=== PATIENT | male | born 1980 | race Caucasian/White ===

== ENCOUNTER → 2020-01-22 | Outpatient (CLI) | payer MEDICAID | END | disposition home or self-care (01) | LOC: LABWHC1 15:54 | PROVIDERS: ATTEND Family Medicine | DX: Z20.828 Contact with and (suspected) exposure to other viral communicable diseases (principal) | CPT/HCPCS: U0003; C9803 ==

== ENCOUNTER 2024-03-12 18:53 | Inpatient (IN) | payer MEDICAID ==
--- NOTE | 2024-03-12 20:09 | ED ---
General Adult HPI - General Chief complaint: Chest Pain Stated complaint: chest pain Time Seen by Provider: 03/12/24 19:10 Source: patient, family, RN notes reviewed, old records reviewed Mode of arrival: ambulatory Limitations: no limitations - History of Present Illness Initial comments: This is a 43-year-old male who presents to the emergency department complaining of chest pain since last night. Patient states the pain radiates down his left arm. Patient states he is also mildly short of breath and last night he became nauseous when he had the chest pain and vomited x 1. Patient states he has been fighting a cold over the last week and just darted antibiotic yesterday. Patient states his blood pressures also been elevated one of his family members is a physician volunteer assistant and they started him on blood pressure medication yesterday. Patient currently states the chest pain is better but it still there and it feels worse if he sits forward or leans forward. States earlier today he did get the chills - Related Data Allergies Allergy/AdvReac Type Severity Reaction Status Date / Time No Known Allergies Allergy Verified 03/12/24 18:58 Review of Systems ROS Statement: Those systems with pertinent positive or pertinent negative responses have been documented in the HPI. ROS Other: All systems not noted in ROS Statement are negative. Past Medical History Past Medical History: Hypertension Past Surgical History: No Surgical Hx Reported Past Psychological History: No Psychological Hx Reported Smoking Status: Current every day smoker Past Alcohol Use History: Occasional Past Drug Use History: Marijuana General Exam - General Exam Comments Initial Comments: GENERAL: Patient is well-developed and well-nourished. Patient is nontoxic and well- hydrated and is in mild distress. ENT: Neck is soft and supple. No significant lymphadenopathy is noted. Oropharynx is clear. Moist mucous membranes. Neck has full range of motion without eliciting any pain. EYES: The sclera were anicteric and conjunctiva were pink and moist. Extraocular movements were intact and pupils were equal round and reactive to light. Eyelids were unremarkable. PULMONARY: Unlabored respirations. Good breath sounds bilaterally. No audible rales rhonchi or wheezing was noted. CARDIOVASCULAR: There is a regular rate and rhythm without any murmurs gallops or rubs. ABDOMEN: Soft and nontender with normal bowel sounds. SKIN: Skin is clear with no lesions or rashes and otherwise unremarkable. NEUROLOGIC: Patient is alert and oriented x3. Cranial nerves II through XII are grossly intact. Motor and sensory are also intact. Normal speech, volume and content. Symmetrical smile. MUSCULOSKELETAL: Normal extremities with adequate strength and full range of motion. LYMPHATICS: No significant lymphadenopathy is noted PSYCHIATRIC: Normal psychiatric evaluation. Limitations: no limitations Course Vital Signs 03/12/24 03/12/24 18:58 20:29 Temperature 97.9 F 98.7 F Pulse Rate 92 90 Respiratory 18 15 Rate Blood Pressure 200/119 186/125 O2 Sat by Pulse 100 100 Oximetry Medical Decision Making - Medical Decision Making EKG interpreted by myself EKG shows a sinus rhythm at 94 bpm NH interval 114 QRS is 94 QT interval 373 QTc is 425. Patient's EKG shows slight ST segment elevation in V1 and V2 with Q waves in V1 and V2. Patient also has inverted T waves in V5 and V6 and lateral leads I and aVL. No old EKG to compare to Patient request to be admitted to whoever Dr. Harris admits to. Patient has already been signed up to follow-up with Dr. Harris as an outpatient. Was pt. sent in by a medical professional or institution (, PA, TECHNICIAN PREVENTATIVE MEDICINE, urgent care, hospital, or long term...) When possible be specific @ -[No] Did you speak to anyone other than the patient for history (EMS, parent, family, police, friend...)? What history was obtained from this source @ -[No] Did you review nursing and triage notes (agree or disagree)? Why? @ -[I reviewed and agree with nursing and triage notes] Were old charts reviewed (outside hosp., previous admission, EMS record, old EKG, old radiological studies, urgent care reports/EKG's, long term records)? Report findings @ -[No old charts were reviewed] Differential Diagnosis? @ -Differential Chest Pain: Stable Angina, Unstable Angina, STEMI, NSTEMI Aortic Dissection, Pneumothorax, Musculoskeletal, Esophageal Spasm GERD, Cholecystitis, Pancreatitis, Zoster, this is not meant to be an all-inclusive list. Differential Dyspnea: Coronary syndrome, arrhythmia, tamponade, asthma, COPD, pulmonary embolism, pneumonia, pneumothorax, pulmonary effusion, anaphylaxis, diabetic ketoacidosis, flailed chest, pulmonary contusion, diaphragmatic rupture, anemia, neuromuscular, this is not meant to be an all-inclusive list. EKG interpreted by me (3pts min.). @ -[As above] X-rays interpreted by me (1pt min.). @ -Chest x-ray shows no acute abnormality CT interpreted by me (1pt min.). @ -[None done] U/S interpreted by me (1pt. min.). @ -[None done] What testing was considered but not performed or refused? (CT, X-rays, U/S, labs)? Why? @ -[None] What meds were considered but not given or refused? Why? @ -[None] Did you discuss the management of the patient with other professionals (pr ofessionals i.e. , PA, TECHNICIAN PREVENTATIVE MEDICINE, lab, RT, psych nurse, mental health social worker, cook vegetable, teacher, code enforcement officer, mental health case manager)? Give summary @ -I spoke with discharging hospitalist and they agreed to admit the patient admit the patient recommending her Was smoking cessation discussed for >3mins.? @ -Yes Was critical care preformed (if so, how long)? @ -[No] Were there social determinants of health that impacted care today? How? (Homelessness, low income, unemployed, alcoholism, drug addiction, transportation, low edu. Level, literacy, decrease access to med. care, longterm, rehab)? @ -[No] Was there de-escalation of care discussed even if they declined (Discuss DNR or withdrawal of care, Hospice)? DNR status @ -[No] What co-morbidities impacted this encounter? (DM, HTN, Smoking, COPD, CAD, Cancer, CVA, ARF, Chemo, Hep., AIDS, mental health diagnosis, sleep apnea, morbid obesity)? @ -[None] Was patient admitted / discharged? Hospital course, mention meds given and route, prescriptions, significant lab abnormalities, going to OR and other pertinent info. @ -Patient's creatinine came back 11. Patient's hemoglobin was 8. Patient will be admitted nephrology be consulted ultrasound of the kidneys will be done hemoglobin repeat be repeated troponin be repeated and patient will be given blood pressure medications. Patient bladder scan showed 78 mL of urine after he urinated Undiagnosed new problem with uncertain prognosis? @ -[No] Drug Therapy requiring intensive monitoring for toxicity (Heparin, Nitro, Insulin, Cardizem)? @ -[No] Were any procedures done? @ -[No] Diagnosis/symptom? @ -Acute renal failure Acute, or Chronic, or Acute on Chronic? @ -Acute Uncomplicated (without systemic symptoms) or Complicated (systemic symptoms)? @ -Complicate Side effects of treatment? @ -[No] Exacerbation, Progression, or Severe Exacerbation? @ -[No] Poses a threat to life or bodily function? How? (Chest pain, [place], [place], pneumonia, PE, COPD, DKA, ARF, appy, cholecystitis, CVA, Diverticulitis, Homicidal, Suicidal, threat to staff... and all critical care pts) @ -Yes this can lead to electrolyte abnormalities and Diagnosis/symptom? @ -Anemia Acute, or Chronic, or Acute on Chronic? @ -Acute Uncomplicated (without systemic symptoms) or Complicated (systemic symptoms)? @ -Complicated Side effects of treatment? @ -[none] Exacerbation, Progression, or Severe Exacerbation] @ -[no] Poses a threat to life or bodily function? @ -Yes this can lead to hypoxia or Diagnosis/symptom? @ -Hypertensive urgency Acute, or Chronic, or Acute on Chronic? @ -Acute Uncomplicated (without systemic symptoms) or Complicated (systemic symptoms)? @ -Complicated Side effects of treatment? @ -[none] Exacerbation, Progression, or Severe Exacerbation] @ -[no] Poses a threat to life or bodily function? @ -Yes this can lead to endorgan dysfunction - Lab Data Result diagrams: 03/12/24 20:22 03/12/24 20:22 Lab Results 03/12/24 03/12/24 03/12/24 Range/Units 20:22 20:22 20:22 WBC 14.5 H (3.8-10.6) k/uL RBC 2.62 L (4.30-5.90) m/uL Hgb 8.0 L (13.0-17.5) gm/dL Hct 23.3 L (39.0-53.0) % MCV 89.0 (80.0-100.0) fL MCH 30.5 (25.0-35.0) pg MCHC 34.2 (31.0-37.0) g/dL RDW 14.7 (11.5-15.5) % Plt Count 253 (150-450) k/uL MPV 7.1 Neutrophils % 88 % Lymphocytes % 7 % Monocytes % 4 % Eosinophils % 1 % Basophils % 0 % Neutrophils # 12.7 H (1.3-7.7) k/uL Lymphocytes # 1.0 (1.0-4.8) k/uL Monocytes # 0.6 (0-1.0) k/uL Eosinophils # 0.1 (0-0.7) k/uL Basophils # 0.0 (0-0.2) k/uL PT 11.1 (10.0-12.5) sec INR 1.0 (<1.2) APTT 27.7 (22.0-30.0) sec Sodium 135 L (137-145) mmol/L Potassium 3.9 (3.5-5.1) mmol/L Chloride 103 (98-107) mmol/L Carbon Dioxide 14 L (22-30) mmol/L Anion Gap 18 mmol/L BUN 96 H (9-20) mg/dL Creatinine 11.69 H* (0.66-1.25) mg/dL Est GFR (CKD-EPI)AfAm 6 (>60 ml/min/1.73 sqM) Est GFR (CKD-EPI)NonAf 5 (>60 ml/min/1.73 sqM) Glucose 93 (74-99) mg/dL Calcium 8.7 (8.4-10.2) mg/dL Magnesium 2.3 (1.6-2.3) mg/dL Total Bilirubin 0.6 (0.2-1.3) mg/dL AST 16 L (17-59) U/L ALT 13 (4-49) U/L Alkaline Phosphatase 61 (38-126) U/L Troponin I (0.000-0.034) ng/mL Total Protein 6.2 L (6.3-8.2) g/dL Albumin 3.6 (3.5-5.0) g/dL Influenza Type A (PCR) (Not Detectd) Influenza Type B (PCR) (Not Detectd) RSV (PCR) (Not Detectd) SARS-CoV-2 (PCR) (Not Detectd) 03/12/24 03/12/24 Range/Units 20:22 20:22 WBC (3.8-10.6) k/uL RBC (4.30-5.90) m/uL Hgb (13.0-17.5) gm/dL Hct (39.0-53.0) % MCV (80.0-100.0) fL MCH (25.0-35.0) pg MCHC (31.0-37.0) g/dL RDW (11.5-15.5) % Plt Count (150-450) k/uL MPV Neutrophils % % Lymphocytes % % Monocytes % % Eosinophils % % Basophils % % Neutrophils # (1.3-7.7) k/uL Lymphocytes # (1.0-4.8) k/uL Monocytes # (0-1.0) k/uL Eosinophils # (0-0.7) k/uL Basophils # (0-0.2) k/uL PT (10.0-12.5) sec INR (<1.2) APTT (22.0-30.0) sec Sodium (137-145) mmol/L Potassium (3.5-5.1) mmol/L Chloride (98-107) mmol/L Carbon Dioxide (22-30) mmol/L Anion Gap mmol/L BUN (9-20) mg/dL Creatinine (0.66-1.25) mg/dL Est GFR (CKD-EPI)AfAm (>60 ml/min/1.73 sqM) Est GFR (CKD-EPI)NonAf (>60 ml/min/1.73 sqM) Glucose (74-99) mg/dL Calcium (8.4-10.2) mg/dL Magnesium (1.6-2.3) mg/dL Total Bilirubin (0.2-1.3) mg/dL AST (17-59) U/L ALT (4-49) U/L Alkaline Phosphatase (38-126) U/L Troponin I 0.133 H* (0.000-0.034) ng/mL Total Protein (6.3-8.2) g/dL Albumin (3.5-5.0) g/dL Influenza Type A (PCR) Not Detected (Not Detectd) Influenza Type B (PCR) Not Detected (Not Detectd) RSV (PCR) Not Detected (Not Detectd) SARS-CoV-2 (PCR) Not Detected (Not Detectd) Disposition Clinical Impression: Acute renal failure, Anemia, Hypertensive urgency Disposition: ADMITTED IP TO THIS HOSP Referrals: None,Stated [Primary Care Provider] - 1-2 days Time of Disposition: 21:30
[2024-03-12] MEDS: ASPIRIN 81 MG PO STA (20:25)
[2024-03-12] MEDS: NITROGLYCERIN OINT 1 INCH/GM PACKET TOPICAL STA (20:28)
[2024-03-12 20:34] LABS: Basophils % (A) 0 %; Eosinophils # (A) 0.1 k/uL (0-0.7); Eosinophils % (A) 1 %; HCT 23.3 % (39.0-53.0); Lymphocytes % (A) 7 %; MCH 30.5 pg (25.0-35.0); MCHC 34.2 g/dL (31.0-37.0); Mean Platelet Volume 7.1; Monocytes # (A) 0.6 k/uL (0-1.0); Monocytes % (A) 4 %; Neutrophils # (A) 12.7 k/uL (1.3-7.7); Neutrophils % (A) 88 %; Platelet Count 253 k/uL (150-450); RBC 2.62 m/uL (4.30-5.90); RDW 14.7 % (11.5-15.5); WBC 14.5 k/uL (3.8-10.6)
--- NOTE | 2024-03-12 20:41 | XR ---
EXAMINATION TYPE: XR chest 2V DATE OF EXAM: 03/12/2024 8:37 PM COMPARISON: None. CLINICAL INDICATION: Male, 43 years old with history of Chest Pain, TECHNIQUE: XR chest 2V view(s) obtained. FINDINGS: The heart size is normal. The pulmonary vasculature is normal. The lungs are clear. IMPRESSION: 1. No acute pulmonary process. [facility], , 03/12/2024 8:38 PM
[2024-03-12 20:47] LABS: ALT 13 U/L (4-49); AST 16 U/L (17-59); African American GFR (CKD) 6 (>60 ml/min/1.73 sqM); Albumin 3.6 g/dL (3.5-5.0); Alkaline Phosphatase 61 U/L (38-126); Anion Gap 18 mmol/L; Blood Urea Nitrogen 96 mg/dL (9-20); Calcium 8.7 mg/dL (8.4-10.2); Carbon Dioxide 14 mmol/L (22-30); Chloride 103 mmol/L (98-107); Glucose 93 mg/dL (74-99); Magnesium 2.3 mg/dL (1.6-2.3); Non-African American GFR(CKD) 5 (>60 ml/min/1.73 sqM); Potassium 3.9 mmol/L (3.5-5.1); Sodium 135 mmol/L (137-145); Total Bilirubin 0.6 mg/dL (0.2-1.3); Total Protein 6.2 g/dL (6.3-8.2)
[2024-03-12 20:51] LABS: Partial Thromboplastin Time 27.7 sec (22.0-30.0); Prothrombin Time 11.1 sec (10.0-12.5)
[2024-03-12 21:10] LABS: Influenza A Not Detected (Not Detectd); Influenza B Not Detected (Not Detectd); RSV Not Detected (Not Detectd)
[2024-03-12] MEDS: hydrALAZINE HCL 20 MG/ML 1 ML VIAL IVP STA (21:47)
[2024-03-12] MEDS: SODIUM CHLORIDE 0.9% 1,000 ML IV SCH (21:47)
[2024-03-12 21:48] LABS: Appearance,Urine Clear (Clear); Bacteria,Urine Occasional /hpf; Bilirubin,Urine Negative (Negative); Blood,Urine Moderate (Negative); Color,Urine Colorless; Glucose,Urine (UA) Trace (Negative); Ketones,Urine Negative (Negative); Leukocyte Esterase,Urine Negative (Negative); Mucus,Urine Rare /hpf; Nitrite,Urine Negative (Negative); PH, Urine 5.5 (5.0-8.0); Protein,Urine 2+ (Negative); RBC,Urine 10 /hpf (0-5); Specific Gravity,Urine 1.007 (1.001-1.035); Urobilinogen,Urine <2.0 mg/dL (<2.0); WBC,Urine 3 /hpf (0-5)
--- NOTE | 2024-03-13 01:02 | US ---
EXAM: US Retroperitoneal Limited, Renal CLINICAL HISTORY: US Reason: Acute renal failure TECHNIQUE: Real-time limited ultrasound of the retroperitoneum with image documentation. COMPARISON: No relevant prior studies available. FINDINGS: Right kidney: The right kidney measures 9 x 4.9 x 4.6 cm, 106 mL with diffusely hyperechoic renal cortex consistent with renal insufficiency. No hydronephrosis is seen. Incidental note is made of a 9 mm simple cysts in the upper pole the right kidney. No follow-up is required. No stones. Left kidney: The left kidney measures 9.8 x 4.7 x 4.4 cm, 108 mL with increased cortical echogenicity consistent with renal insufficiency. No hydronephrosis is seen. No stones. Bladder: The urinary bladder is partially distended with urinary bladder wall thickness measuring 3 mm. The right ureteral jet is visible. IMPRESSION: 1. The right kidney measures 9 x 4.9 x 4.6 cm, 106 mL with diffusely hyperechoic renal cortex consistent with renal insufficiency. No hydronephrosis is seen. 2. The left kidney measures 9.8 x 4.7 x 4.4 cm, 108 mL with increased cortical echogenicity consistent with renal insufficiency. No hydronephrosis is seen.
[2024-03-13 07:33] LABS: Basophils % (A) 0 %; Eosinophils # (A) 0.2 k/uL (0-0.7); Eosinophils % (A) 1 %; HCT 21.1 % (39.0-53.0); HGB 7.1 gm/dL (13.0-17.5); Lymphocytes # (A) 1.1 k/uL (1.0-4.8); Lymphocytes % (A) 9 %; MCH 30.1 pg (25.0-35.0); MCHC 33.7 g/dL (31.0-37.0); MCV 89.3 fL (80.0-100.0); Mean Platelet Volume 8.9; Monocytes # (A) 0.5 k/uL (0-1.0); Monocytes % (A) 4 %; Neutrophils # (A) 10.1 k/uL (1.3-7.7); Neutrophils % (A) 84 %; Platelet Count 228 k/uL (150-450); RBC 2.36 m/uL (4.30-5.90); RDW 15.3 % (11.5-15.5); WBC 12.1 k/uL (3.8-10.6)
[2024-03-13 08:38] LABS: ALT 12 U/L (4-49); AST 15 U/L (17-59); African American GFR (CKD) 5 (>60 ml/min/1.73 sqM); Albumin 3.2 g/dL (3.5-5.0); Alkaline Phosphatase 58 U/L (38-126); Anion Gap 15 mmol/L; Blood Urea Nitrogen 93 mg/dL (9-20); Calcium 8.6 mg/dL (8.4-10.2); Carbon Dioxide 14 mmol/L (22-30); Chloride 107 mmol/L (98-107); Glucose 103 mg/dL (74-99); Non-African American GFR(CKD) 5 (>60 ml/min/1.73 sqM); Potassium 4.1 mmol/L (3.5-5.1); Sodium 136 mmol/L (137-145); Total Bilirubin 0.7 mg/dL (0.2-1.3); Total Protein 5.6 g/dL (6.3-8.2)
[2024-03-13] MEDS: ACETAMINOPHEN TAB 325 MG TAB PO PRN (10:03)
[2024-03-13] MEDS: hydrALAZINE HCL 25 MG TAB PO SCH (10:41)
--- NOTE | 2024-03-13 10:49 | P.NPCON ---
History of Present Illness - Reason for Consult acute renal failure - History of Present Illness Reason for consultation: Acute kidney injury History of present illness: Patient is a 43-year-old male seen in renal consultation for acute kidney injury. Unknown baseline renal function. Patient denies personal history of kidney disease. Patient came to the hospital due to generalized weakness and not feeling well over the last few weeks. Patient's been having chest discomfort and also vomited on Monday. Patient denies regular use of NSAIDs but did take Motrin 400 mg 1-2 times daily 4-5 times in the last couple of weeks. He denies history of diabetes. Denies history of coronary artery disease. Denies gross hematuria or dysuria. Denies use of IV drugs. Creatinine 11.16 on admission and is 11.83 today. Patient has been receiving IV fluids overnight. Blood pressure has been high. He is currently on room air. Kidney ultrasound shows no evidence of hydronephrosis. He has been drinking quite a bit of water. Oral intake has been good except depressed the last few days. Vital signs are stable. Blood pressure high. General: No acute distress. HEENT: Head exam is unremarkable. LUNGS: No audible rhonchi or wheezes. HEART: Rate and Rhythm are regular. ABDOMEN: Nontender. EXTREMITITES: No edema. Past Medical History Past Medical History: Hypertension Past Surgical History: No Surgical Hx Reported Past Psychological History: No Psychological Hx Reported Smoking Status: Current every day smoker Past Alcohol Use History: Occasional Past Drug Use History: Marijuana Medications and Allergies Home Medications Medication Instructions Recorded Confirmed Type Amoxic-Pot Clav 875-125Mg 1 tab PO Q12HR 03/13/24 03/13/24 History [Augmentin 875-125] hydrALAZINE HCL [Apresoline] 25 mg PO TID 03/13/24 03/13/24 History Allergies Allergy/AdvReac Type Severity Reaction Status Date / Time No Known Allergies Allergy Verified 03/13/24 09:33 Physical Exam Vitals: Vital Signs Temp Pulse Resp BP Pulse Ox 03/13/24 10:00 82 16 160/101 99 03/13/24 07:28 98.5 F 94 18 165/107 99 03/13/24 06:00 87 18 151/96 97 03/13/24 04:00 96 18 149/118 100 03/13/24 03:10 98 17 162/106 97 03/13/24 00:21 99.7 F H 105 H 18 163/99 96 03/12/24 22:53 98 16 160/93 98 03/12/24 21:46 89 15 170/105 98 03/12/24 20:29 98.7 F 90 15 186/125 100 03/12/24 18:58 97.9 F 92 18 200/119 100 Intake and Output 03/12/24 03/13/24 03/13/24 22:59 06:59 14:59 Output Total 170 525 Balance -170 -525 Output: Urine 170 525 Other: # Voids 1 2 Weight 70.307 kg Results - Lab Results Most recent lab results Calcium 8.6 mg/dL (8.4-10.2) 03/13/24 07:13 Magnesium 2.3 mg/dL (1.6-2.3) 03/12/24 20:22 03/13/24 07:13 03/13/24 07:13 Assessment and Plan Plan: Assessment: 1. Acute kidney injury secondary to ATN versus acute glomerulonephritis. Creatinine 11.83 today. Unknown baseline renal function. No hydronephrosis noted on kidney ultrasound. Urine positive for protein and blood. 2. Metabolic acidosis secondary to acute kidney injury. 3. Anemia due to acute illness. 4. Benign hypertension. Partially due to severe renal failure. Plan: Change IV fluids to bicarb drip. Check serologies. Quantify proteinuria. Check urine eosinophils. Check iron studies. Consult interventional radiology for kidney biopsy. Discussed with patient and his family the need for renal replacement therapy due to severe renal function and signs and symptoms of uremia. They are agreeable. Consult vascular surgery for dialysis catheter placement. Plan for first treatment of hemodialysis today and second treatment tomorrow. Add amlodipine 5 mg once daily. Add as needed hydralazine. Follow-up echocardiogram. Thank you for the consultation. I will continue to follow the patient with you during his hospital stay.
--- NOTE | 2024-03-13 11:11 | P.GSCN ---
History of Present Illness Consult date: 03/13/24 Reason for Consult: Temporary dialysis catheter placement Requesting physician: Ham Palacios History of present illness: This is a pleasant 43-year-old male who presented to the emergency department yesterday evening with complaints of chest pain radiating down his arm, headache, shortness of breath, and nausea with 1 episode of emesis. Patient was diagnosed with hypertension about 10 years ago was on antihypertensive for short period and his states that he he then was no longer on them and has not followed with a physician in many years. He is a current daily smoker 1 pack/day for last 14 years. On admission he was noted to have significantly elevated blood pressures and was admitted for hypertensive urgency, also noted to have elevated troponins and acute kidney injury. Patient was seen by neph rology who is recommending need for renal replacement therapy due to severe renal function and signs and symptoms of uremia. Vascular surgery was consulted to place temporary dialysis catheter. Patient currently states he has a headache, chest pain does seem improved he was given nitroglycerin on admission. Today's labs WBC 12.1 hemoglobin 7.1 platelet count 228,000 INR 1.0 sodium 136 potassium 4.1 BUN 93 creatinine 11.8 Review of Systems A 14 point review systems was completed all pertinent positives and negatives as stated in the HPI. Past Medical History Past Medical History: Hypertension Past Surgical History: No Surgical Hx Reported Past Psychological History: No Psychological Hx Reported Smoking Status: Current every day smoker Past Alcohol Use History: Occasional Past Drug Use History: Marijuana Medications and Allergies Home Medications Medication Instructions Recorded Confirmed Type Amoxic-Pot Clav 875-125Mg 1 tab PO Q12HR 03/13/24 03/13/24 History [Augmentin 875-125] hydrALAZINE HCL [Apresoline] 25 mg PO TID 03/13/24 03/13/24 History Allergies Allergy/AdvReac Type Severity Reaction Status Date / Time No Known Allergies Allergy Verified 03/13/24 09:33 Surgical - Exam Vital Signs Temp Pulse Resp BP Pulse Ox 97.9 F 92 18 200/119 100 03/12/24 18:58 03/12/24 18:58 03/12/24 18:58 03/12/24 18:58 03/12/24 18:58 General appearance: The patient is alert, oriented, appears in no acute distress. HET: Head is normocephalic and atraumatic. Pupils are equal and reactive. Neck: Supple. Heart: Regular. Lungs: Equal expansion, normal respiratory effort. Abdomen: Soft, nontender, nondistended. Extremities: Normal skin color and turgor. Neurological: No focal deficits. Strength and sensation are grossly intact. Results - Labs 03/13/24 07:13 03/13/24 07:13 Abnormal Lab Results - Last 24 Hours (Table) 03/12/24 03/12/24 03/12/24 Range/Units 20:22 20:22 20:22 WBC 14.5 H (3.8-10.6) k/uL RBC 2.62 L (4.30-5.90) m/uL Hgb 8.0 L (13.0-17.5) gm/dL Hct 23.3 L (39.0-53.0) % Neutrophils # 12.7 H (1.3-7.7) k/uL Sodium 135 L (137-145) mmol/L Carbon Dioxide 14 L (22-30) mmol/L BUN 96 H (9-20) mg/dL Creatinine 11.69 H* (0.66-1.25) mg/dL Glucose (74-99) mg/dL AST 16 L (17-59) U/L Troponin I 0.133 H* (0.000-0.034) ng/mL Total Protein 6.2 L (6.3-8.2) g/dL Albumin (3.5-5.0) g/dL Urine Protein (Negative) Urine Glucose (UA) (Negative) Urine Blood (Negative) Urine RBC (0-5) /hpf Urine Bacteria (None) /hpf Urine Mucus (None) /hpf 03/12/24 03/12/24 03/13/24 Range/Units 21:37 21:46 00:50 WBC (3.8-10.6) k/uL RBC (4.30-5.90) m/uL Hgb (13.0-17.5) gm/dL Hct (39.0-53.0) % Neutrophils # (1.3-7.7) k/uL Sodium (137-145) mmol/L Carbon Dioxide (22-30) mmol/L BUN (9-20) mg/dL Creatinine (0.66-1.25) mg/dL Glucose (74-99) mg/dL AST (17-59) U/L Troponin I 0.114 H* 0.108 H* (0.000-0.034) ng/mL Total Protein (6.3-8.2) g/dL Albumin (3.5-5.0) g/dL Urine Protein 2+ H (Negative) Urine Glucose (UA) Trace H (Negative) Urine Blood Moderate H (Negative) Urine RBC 10 H (0-5) /hpf Urine Bacteria Occasional H (None) /hpf Urine Mucus Rare H (None) /hpf 03/13/24 03/13/24 Range/Units 07:13 07:13 WBC 12.1 H (3.8-10.6) k/uL RBC 2.36 L (4.30-5.90) m/uL Hgb 7.1 L (13.0-17.5) gm/dL Hct 21.1 L (39.0-53.0) % Neutrophils # 10.1 H (1.3-7.7) k/uL Sodium 136 L (137-145) mmol/L Carbon Dioxide 14 L (22-30) mmol/L BUN 93 H (9-20) mg/dL Creatinine 11.83 H* (0.66-1.25) mg/dL Glucose 103 H (74-99) mg/dL AST 15 L (17-59) U/L Troponin I (0.000-0.034) ng/mL Total Protein 5.6 L (6.3-8.2) g/dL Albumin 3.2 L (3.5-5.0) g/dL Urine Protein (Negative) Urine Glucose (UA) (Negative) Urine Blood (Negative) Urine RBC (0-5) /hpf Urine Bacteria (None) /hpf Urine Mucus (None) /hpf Diabetes panel 03/12/24 03/13/24 Range/Units 20:22 07:13 Sodium 135 L 136 L (137-145) mmol/L Potassium 3.9 4.1 (3.5-5.1) mmol/L Chloride 103 107 (98-107) mmol/L Carbon Dioxide 14 L 14 L (22-30) mmol/L BUN 96 H 93 H (9-20) mg/dL Creatinine 11.69 H* 11.83 H* (0.66-1.25) mg/dL Glucose 93 103 H (74-99) mg/dL Calcium 8.7 8.6 (8.4-10.2) mg/dL AST 16 L 15 L (17-59) U/L ALT 13 12 (4-49) U/L Alkaline Phosphatase 61 58 (38-126) U/L Total Protein 6.2 L 5.6 L (6.3-8.2) g/dL Albumin 3.6 3.2 L (3.5-5.0) g/dL Calcium panel 03/12/24 03/13/24 Range/Units 20:22 07:13 Calcium 8.7 8.6 (8.4-10.2) mg/dL Albumin 3.6 3.2 L (3.5-5.0) g/dL Pituitary panel 03/12/24 03/13/24 Range/Units 20:22 07:13 Sodium 135 L 136 L (137-145) mmol/L Potassium 3.9 4.1 (3.5-5.1) mmol/L Chloride 103 107 (98-107) mmol/L Carbon Dioxide 14 L 14 L (22-30) mmol/L BUN 96 H 93 H (9-20) mg/dL Creatinine 11.69 H* 11.83 H* (0.66-1.25) mg/dL Glucose 93 103 H (74-99) mg/dL Calcium 8.7 8.6 (8.4-10.2) mg/dL Adrenal panel 03/12/24 03/13/24 Range/Units 20:22 07:13 Sodium 135 L 136 L (137-145) mmol/L Potassium 3.9 4.1 (3.5-5.1) mmol/L Chloride 103 107 (98-107) mmol/L Carbon Dioxide 14 L 14 L (22-30) mmol/L BUN 96 H 93 H (9-20) mg/dL Creatinine 11.69 H* 11.83 H* (0.66-1.25) mg/dL Glucose 93 103 H (74-99) mg/dL Calcium 8.7 8.6 (8.4-10.2) mg/dL Total Bilirubin 0.6 0.7 (0.2-1.3) mg/dL AST 16 L 15 L (17-59) U/L ALT 13 12 (4-49) U/L Alkaline Phosphatase 61 58 (38-126) U/L Total Protein 6.2 L 5.6 L (6.3-8.2) g/dL Albumin 3.6 3.2 L (3.5-5.0) g/dL Assessment and Plan Assessment: 1. Acute kidney injury requiring hemodialysis 2. Hypertensive urgency 3. Every day smoker 4. Chest pain Plan: 1. Will plan for bedside temporary HD catheter placement today 2. Hemodialysis per recommendations from nephrology 3. Rest of medical management per primary medical team Thank you for this consultation, we will continue to follow. The impression and plan of care has been dictated as directed. Dr. Ryan I performed a history and examination of this patient, discussed the same with the dictator. I agree with the dictator's note ,documented as a scribe. Any additional findings or plans will be noted.
[2024-03-13] MEDS: DEXTROSE 5% IN WATER 1,000 ML with SODIUM BICARB (1 MEQ/ML) 150 ML IV SCH (11:19)
[2024-03-13] MEDS: amLODIPine 5 MG TAB PO SCH (11:19)
[2024-03-13] MEDS: METOPROLOL TARTRATE 25 MG TAB PO SCH (12:34)
[2024-03-13 12:37] LABS: Creatinine,Urine Random 75.3 mg/dL; Protein/Creatinine Ratio,Urine 4.369
--- NOTE | 2024-03-13 13:35 | P.HPIM ---
History of Present Illness 43-year-old male came in with symptoms of generalized weakness not feeling well for last few weeks and patient found to have highly elevated creatinine of 11 and acute renal failure with BUN of around 97 patient was also having some chest pain secondary to uremia cardiology evaluated the patient. Patient with mild elevation of troponin 0.108 this is secondary to renal failure patient does have leukocytosis without any evidence of infection patient admits to taking Motrin few times a day. Patient had any gross hematuria or dysuria patient denied any fever chills patient denied any cough. REVIEW OF SYSTEMS: All other systems are negative except those mentioned in the HPI PHYSICAL EXAMINATION: GENERAL: The patient is alert and oriented x3, not in any acute distress. Well developed, well nourished. HEENT: Pupils are round and equally reacting to light. EOMI. No scleral icterus. No conjunctival pallor. Normocephalic, atraumatic. No pharyngeal erythema. No thyromegaly. CARDIOVASCULAR: S1 and S2 present. No murmurs, rubs, or gallops. PULMONARY: Chest is clear to auscultation, no wheezing or crackles. ABDOMEN: Soft, nontender, nondistended, normoactive bowel sounds. No palpable organomegaly. MUSCULOSKELETAL: No joint swelling or deformity. EXTREMITIES: No cyanosis, clubbing, or pedal edema. NEUROLOGICAL: Gross neurological examination did not reveal any focal deficits. SKIN: No rashes. Assessment and plan -Acute renal failure: Ultrasound of the kidneys did not show any obstruction or hydronephrosis. Patient probably has acute tubular necrosis or acute luminal nephritis or allergic discharge nephritis. Urine is no culture being obtained proteinuria will be quantified serologies will be checked. Liver biopsy was ordered. -Chest pain secondary to uremia as patient has symptoms of uremia patient probably will need dialysis. Vascular surgery is being consulted for dialysis catheter placement -Hypertension can be secondary to renal failure -Metabolic acidosis secondary to uremia patient has both anion gap and non-anion gap metabolic acidosis secondary to uremia and renal failure -Leukocytosis without any evidence of infection we will just monitor him -Troponin elevation secondary to renal failure, low possibility of coronary artery disease DVT prophylaxis: Patient will start on subcutaneous heparin after liver biopsy Past Medical History Past Medical History: Hypertension Past Surgical History: No Surgical Hx Reported Past Psychological History: No Psychological Hx Reported Smoking Status: Current every day smoker Past Alcohol Use History: Occasional Past Drug Use History: Marijuana Medications and Allergies Home Medications Medication Instructions Recorded Confirmed Type Amoxic-Pot Clav 875-125Mg 1 tab PO Q12HR 03/13/24 03/13/24 History [Augmentin 875-125] hydrALAZINE HCL [Apresoline] 25 mg PO TID 03/13/24 03/13/24 History Allergies Allergy/AdvReac Type Severity Reaction Status Date / Time No Known Allergies Allergy Verified 03/13/24 09:33 Physical Exam Vitals: Vital Signs Temp Pulse Resp BP Pulse Ox 03/13/24 13:13 80 16 134/96 98 03/13/24 12:33 96 16 146/95 03/13/24 11:57 93 18 144/101 97 03/13/24 11:16 96 18 165/106 97 03/13/24 10:00 82 16 160/101 99 03/13/24 07:28 98.5 F 94 18 165/107 99 03/13/24 06:00 87 18 151/96 97 03/13/24 04:00 96 18 149/118 100 03/13/24 03:10 98 17 162/106 97 03/13/24 00:21 99.7 F H 105 H 18 163/99 96 03/12/24 22:53 98 16 160/93 98 03/12/24 21:46 89 15 170/105 98 03/12/24 20:29 98.7 F 90 15 186/125 100 03/12/24 18:58 97.9 F 92 18 200/119 100 Intake and Output 03/12/24 03/13/24 03/13/24 22:59 06:59 14:59 Output Total 170 985 Balance -170 -985 Output: Urine 170 985 Other: # Voids 1 2 Weight 70.307 kg Results CBC & Chem 7: 03/13/24 07:13 03/13/24 07:13 Labs: Abnormal Lab Results - Last 24 Hours (Table) 03/12/24 03/12/24 03/12/24 Range/Units 20:22 20:22 20:22 WBC 14.5 H (3.8-10.6) k/uL RBC 2.62 L (4.30-5.90) m/uL Hgb 8.0 L (13.0-17.5) gm/dL Hct 23.3 L (39.0-53.0) % Neutrophils # 12.7 H (1.3-7.7) k/uL Sodium 135 L (137-145) mmol/L Carbon Dioxide 14 L (22-30) mmol/L BUN 96 H (9-20) mg/dL Creatinine 11.69 H* (0.66-1.25) mg/dL Glucose (74-99) mg/dL AST 16 L (17-59) U/L Troponin I 0.133 H* (0.000-0.034) ng/mL Total Protein 6.2 L (6.3-8.2) g/dL Albumin (3.5-5.0) g/dL Urine Protein (Negative) Urine Glucose (UA) (Negative) Urine Blood (Negative) Urine RBC (0-5) /hpf Urine Bacteria (None) /hpf Urine Mucus (None) /hpf 03/12/24 03/12/24 03/13/24 Range/Units 21:37 21:46 00:50 WBC (3.8-10.6) k/uL RBC (4.30-5.90) m/uL Hgb (13.0-17.5) gm/dL Hct (39.0-53.0) % Neutrophils # (1.3-7.7) k/uL Sodium (137-145) mmol/L Carbon Dioxide (22-30) mmol/L BUN (9-20) mg/dL Creatinine (0.66-1.25) mg/dL Glucose (74-99) mg/dL AST (17-59) U/L Troponin I 0.114 H* 0.108 H* (0.000-0.034) ng/mL Total Protein (6.3-8.2) g/dL Albumin (3.5-5.0) g/dL Urine Protein 2+ H (Negative) Urine Glucose (UA) Trace H (Negative) Urine Blood Moderate H (Negative) Urine RBC 10 H (0-5) /hpf Urine Bacteria Occasional H (None) /hpf Urine Mucus Rare H (None) /hpf 03/13/24 03/13/24 Range/Units 07:13 07:13 WBC 12.1 H (3.8-10.6) k/uL RBC 2.36 L (4.30-5.90) m/uL Hgb 7.1 L (13.0-17.5) gm/dL Hct 21.1 L (39.0-53.0) % Neutrophils # 10.1 H (1.3-7.7) k/uL Sodium 136 L (137-145) mmol/L Carbon Dioxide 14 L (22-30) mmol/L BUN 93 H (9-20) mg/dL Creatinine 11.83 H* (0.66-1.25) mg/dL Glucose 103 H (74-99) mg/dL AST 15 L (17-59) U/L Troponin I (0.000-0.034) ng/mL Total Protein 5.6 L (6.3-8.2) g/dL Albumin 3.2 L (3.5-5.0) g/dL Urine Protein (Negative) Urine Glucose (UA) (Negative) Urine Blood (Negative) Urine RBC (0-5) /hpf Urine Bacteria (None) /hpf Urine Mucus (None) /hpf
--- NOTE | 2024-03-13 13:42 | P.CRDCN ---
History of Present Illness Consult date: 03/13/24 Consult reason: chest pain History of present illness: This is a 43-year-old male with no previous cardiac history. He does have a history of hypertension that was diagnosed when he was in the [employer] but he has been out of the [employer] for 12 years. He apparently has not been on any medications for this. He was in contact with Dr. Calabrese's office and started hydralazine yesterday and is doing paperwork in order to be established as a patient there. Otherwise he has not seen a physician in 12 years except for urgent care. Patient does not have any recent lab work done. He apparently had chest pain last evening radiating to his left arm with some shortness of breath nausea and vomited x 1. Patient was found to be in acute kidney injury requiring dialysis and vascular surgery is on for access. Patient has been taking some Motrin occasionally for headache but not excessive amount. He has not been eating for the past 2 days. He is making some urine but it is decreased. He has complained to his about difficulty urinating. Patient presented with a blood pressure of 200/119. Blood pressure is now 165/106, heart rate is in the 90s, pulse ox 97% on room air. -EKG: Sinus rhythm with LVH -Chest x-ray: No acute process. -Laboratory studies: WBC 12.1, hemoglobin 7.1. BUN 93 creatinine 11.8. Troponins 0.133, 0.114, 0.108. Influenza, RSV and COVID not detected. -Home cardiac medications: Started hydralazine yesterday. Review Of Systems: At the time of my exam: CONSTITUTIONAL: Denies fever or chills. Reports headache. HEENT: Denies blurred vision, vision changes, or eye pain. Denies hemoptysis CARDIOVASCULAR: Denies chest pain. Denies orthopnea. Denies PND. Denies palpitations RESPIRATORY: Denies shortness of breath. GASTROINTESTINAL: Denies abdominal pain. Denies nausea or vomiting. Reports decreased appetite. HEMATOLOGIC: Denies bleeding disorders. GENITOURINARY: Denies any blood in urine. SKIN: Denies puritis. Denies rash. Physical examination: Gen: This is a 43-year-old male in no acute distress VS: reviewed HEENT: Head is atraumatic, normocephalic. Pupils equal, round. Sclerae is anic teric. NECK: Supple. No JVD. LUNGS: Clear to auscultation. No wheezes or rhonchi. No intercostal retractions. HEART: Regular rate and rhythm. No murmur. ABDOMEN: Soft No tenderness. EXTREMITIES: No pedal edema. No calf tenderness. NEUROLOGICAL: Patient is awake, alert and oriented x3. Assessment: Acute on chronic renal failure Uncontrolled hypertension No primary myocardial injury Anemia possibly due to renal failure Plan: Blood pressure control: Patient has been started on amlodipine 5 mg daily, hydralazine as needed, hydralazine 25 mg 3 times daily And Lopressor 25 mg twice daily Obtain 2-D echocardiogram and Doppler study to assess cardiac structure and function Further recommendations to follow based upon clinical course Thank you kindly for this consultation. Nurse practitioner note has been reviewed, I agree with documented findings and plan of care. Patient was seen and examined. Past Medical History Past Medical History: Hypertension Past Surgical History: No Surgical Hx Reported Past Psychological History: No Psychological Hx Reported Smoking Status: Current every day smoker Past Alcohol Use History: Occasional Past Drug Use History: Marijuana Medications and Allergies Home Medications Medication Instructions Recorded Confirmed Type Amoxic-Pot Clav 875-125Mg 1 tab PO Q12HR 03/13/24 03/13/24 History [Augmentin 875-125] hydrALAZINE HCL [Apresoline] 25 mg PO TID 03/13/24 03/13/24 History Allergies Allergy/AdvReac Type Severity Reaction Status Date / Time No Known Allergies Allergy Verified 03/13/24 09:33 Physical Exam Vitals: Vital Signs Temp Pulse Resp BP Pulse Ox 03/13/24 11:57 93 18 144/101 97 03/13/24 11:16 96 18 165/106 97 03/13/24 10:00 82 16 160/101 99 03/13/24 07:28 98.5 F 94 18 165/107 99 03/13/24 06:00 87 18 151/96 97 03/13/24 04:00 96 18 149/118 100 03/13/24 03:10 98 17 162/106 97 03/13/24 00:21 99.7 F H 105 H 18 163/99 96 03/12/24 22:53 98 16 160/93 98 03/12/24 21:46 89 15 170/105 98 03/12/24 20:29 98.7 F 90 15 186/125 100 03/12/24 18:58 97.9 F 92 18 200/119 100 Intake and Output 03/12/24 03/13/24 03/13/24 22:59 06:59 14:59 Output Total 170 985 Balance -170 -985 Output: Urine 170 985 Other: # Voids 1 2 Weight 70.307 kg Results 03/13/24 07:13 03/13/24 07:13 Cardiac Enzymes 03/12/24 03/12/24 03/12/24 Range/Units 20:22 20:22 21:46 AST 16 L (17-59) U/L Troponin I 0.133 H* 0.114 H* (0.000-0.034) ng/mL 03/13/24 03/13/24 Range/Units 00:50 07:13 AST 15 L (17-59) U/L Troponin I 0.108 H* (0.000-0.034) ng/mL Coagulation 03/12/24 Range/Units 20:22 PT 11.1 (10.0-12.5) sec APTT 27.7 (22.0-30.0) sec CBC 03/12/24 03/13/24 Range/Units 20:22 07:13 WBC 14.5 H 12.1 H (3.8-10.6) k/uL RBC 2.62 L 2.36 L (4.30-5.90) m/uL Hgb 8.0 L 7.1 L (13.0-17.5) gm/dL Hct 23.3 L 21.1 L (39.0-53.0) % Plt Count 253 228 (150-450) k/uL Comprehensive Metabolic Panel 03/12/24 03/13/24 Range/Units 20:22 07:13 Sodium 135 L 136 L (137-145) mmol/L Potassium 3.9 4.1 (3.5-5.1) mmol/L Chloride 103 107 (98-107) mmol/L Carbon Dioxide 14 L 14 L (22-30) mmol/L BUN 96 H 93 H (9-20) mg/dL Creatinine 11.69 H* 11.83 H* (0.66-1.25) mg/dL Glucose 93 103 H (74-99) mg/dL Calcium 8.7 8.6 (8.4-10.2) mg/dL AST 16 L 15 L (17-59) U/L ALT 13 12 (4-49) U/L Alkaline Phosphatase 61 58 (38-126) U/L Total Protein 6.2 L 5.6 L (6.3-8.2) g/dL Albumin 3.6 3.2 L (3.5-5.0) g/dL Current Medications Generic Name Dose Route Start Last Admin Trade Name Freq PRN Reason Stop Dose Admin Acetaminophen 650 mg 03/13/24 09:54 03/13/24 10:03 Acetaminophen Tab 325 Mg Tab PO 650 mg Q4HR PRN Administration Fever and/ or Pain Amlodipine Besylate 5 mg 03/13/24 11:00 03/13/24 11:19 Amlodipine 5 Mg Tab PO 5 mg DAILY DANNIE Administration Hydralazine HCl 25 mg 03/13/24 10:30 03/13/24 10:41 Hydralazine Hcl 25 Mg Tab PO 25 mg TID DANNIE Administration Hydralazine HCl 10 mg 03/13/24 10:46 Hydralazine Hcl 20 Mg/Ml 1 Ml Vial IVP Q6HR PRN Blood Pressure - High Sodium Bicarbonate 150 ml/ 1,150 mls @ 100 mls/hr 03/13/24 11:00 03/13/24 11:19 Dextrose/Water IV 100 mls/hr .[id number] DANNIE Administration Metoprolol Tartrate 25 mg 03/13/24 12:00 Metoprolol Tartrate 25 Mg Tab PO BID DANNIE Intake and Output 03/12/24 03/13/24 03/13/24 22:59 06:59 14:59 Output Total 170 985 Balance -170 -985 Output: Urine 170 985 Other: # Voids 1 2 Weight 70.307 kg 03/13/24 07:13 03/13/24 07:13
[2024-03-13] MEDS: HYDROmorphone 0.5 MG/0.5 ML SYRINGE IVP STA (16:06)
--- NOTE | 2024-03-13 16:36 | P.OP ---
Date of Procedure: 03/13/24 Description of Procedure: SURGEON: Mia Ryan DO WRAPPER STEMMER HAND: None PREOPERATIVE DIAGNOSIS: Need for dialysis, new onset RANJITH POSTOPERATIVE DIAGNOSIS: Same OPERATION: Ultrasound-guided right common femoral vein access, placement of temporary dialysis catheter DESCRIPTION OF PROCEDURE: The groin was prepped and draped in usual sterile fashion. A preprocedure timeout was performed, all parties were in agreement. An ultrasound was utilized and the right common femoral vein was identified. It was patent and compressible. The skin overlying the vein was anesthetized with 1% lidocaine plain. A multipurpose needle was utilized and the femoral vein was accessed under ultrasound guidance on first attempt with return of dark venous, nonpulsatile blood. The guidewire was passed easily. Serial dilation was performed of the subcutaneous tissues. The catheter was placed and secured with suture. It aspirated and flushed freely. The patient tolerated the procedure well.
[2024-03-13 17:07] LABS: Hepatitis A Antibody IgM Nonreactive (Nonreactive); Hepatitis B Core IgM Nonreactive (Nonreactive); Hepatitis C IgG Antibody Nonreactive (Nonreactive)
[2024-03-13 17:08] LABS: Hepatitis B Surface Antigen Nonreactive (Nonreactive)
[2024-03-13 17:37] LABS: % Iron Saturation 5.7 (15.00-50.00)
[2024-03-13 19:36] LABS: Protein, Total 5.8 g/dL (6.2-8.2)
[2024-03-13 21:27] LABS: Anti-DNA, DS unit <1.0 IU/mL; DNA Double-Stranded Negative (Negative)
[2024-03-13] MEDS: BUTALB/APAP/CAFF 50-325-40MG TAB PO PRN (21:53)
[2024-03-14 08:18] LABS: ALT 16 U/L (4-49); AST 19 U/L (17-59); African American GFR (CKD) 8 (>60 ml/min/1.73 sqM); Albumin 2.9 g/dL (3.5-5.0); Alkaline Phosphatase 70 U/L (38-126); Anion Gap 9 mmol/L; Blood Urea Nitrogen 66 mg/dL (9-20); Calcium 8.1 mg/dL (8.4-10.2); Carbon Dioxide 31 mmol/L (22-30); Chloride 95 mmol/L (98-107); Glucose 95 mg/dL (74-99); Non-African American GFR(CKD) 7 (>60 ml/min/1.73 sqM); Potassium 3.4 mmol/L (3.5-5.1); Sodium 135 mmol/L (137-145); Total Bilirubin 0.4 mg/dL (0.2-1.3); Total Protein 5.3 g/dL (6.3-8.2)
--- NOTE | 2024-03-14 10:01 | P.PN ---
Subjective Progress Note Date: 03/14/24 Principal diagnosis: Acute kidney failure requiring hemodialysis Patient is seen and examined today as a follow-up. Yesterday he underwent placement of a right common femoral vein temporary HD catheter. He was able to receive dialysis yesterday without any complications. He is getting ready to undergo dialysis again this morning. He states he is feeling much better. Kidney function improving. Patient denies any pain in the right groin, no bleeding or hematoma. Objective - Vital Signs Vital signs: Vital Signs Temp 97.9 F 03/14/24 08:18 Pulse 76 03/14/24 08:18 Resp 17 03/14/24 08:18 BP 146/88 03/14/24 08:18 Pulse Ox 97 03/14/24 08:18 FiO2 Intake & Output 03/13/24 03/14/24 03/14/24 18:59 06:59 18:59 Intake Total 1800 Output Total 1435 1225 350 Balance -1435 575 -350 Weight 70.307 kg Intake: Intake, IV Titration 1300 Amount Dextrose 5% in Water 1, 1300 000 ml @ 100 mls/hr IV . [id number] DANNIE with Sodium Bicarb (1 Meq/ml) 150 ml Rx#:[id number] Hemodialysis 500 Output: Urine 1435 725 350 Hemodialysis 500 Hemodialysis Net Amount 0 Other: Voiding Method Toilet Toilet Urinal Urinal # Voids 2 1 - Exam General appearance: The patient is alert, oriented, appears in no acute distress. HET: Head is normocephalic and atraumatic. Neck: Supple. Abdomen: Soft, nondistended. Extremities: Normal skin color and turgor. Right groin with temporary hemodialysis catheter with dressing clean dry and intact. No surrounding erythema, swelling or bleeding. Neurological: No focal deficits. Strength and sensation are grossly intact. - Labs CBC & Chem 7: 03/13/24 07:13 03/14/24 07:44 Labs: Abnormal Lab Results - Last 24 Hours (Table) 03/13/24 03/13/24 03/13/24 Range/Units 11:01 11:01 11:01 Sodium (137-145) mmol/L Potassium (3.5-5.1) mmol/L Chloride (98-107) mmol/L Carbon Dioxide (22-30) mmol/L BUN (9-20) mg/dL Creatinine (0.66-1.25) mg/dL Calcium (8.4-10.2) mg/dL Iron 13 L 14 L (65-175) UG/DL % Saturation 5.70 L (15.00-50.00) Transferrin 163.0 L (204.0-354.0) mg/dL Ferritin 604.0 H (22.0-322.0) ng/mL Total Protein (6.3-8.2) g/dL Total Protein (PEP) 5.8 L (6.2-8.2) g/dL Albumin (3.5-5.0) g/dL 03/14/24 Range/Units 07:44 Sodium 135 L (137-145) mmol/L Potassium 3.4 L (3.5-5.1) mmol/L Chloride 95 L (98-107) mmol/L Carbon Dioxide 31 H (22-30) mmol/L BUN 66 H (9-20) mg/dL Creatinine 8.18 H* (0.66-1.25) mg/dL Calcium 8.1 L (8.4-10.2) mg/dL Iron (65-175) UG/DL % Saturation (15.00-50.00) Transferrin (204.0-354.0) mg/dL Ferritin (22.0-322.0) ng/mL Total Protein 5.3 L (6.3-8.2) g/dL Total Protein (PEP) (6.2-8.2) g/dL Albumin 2.9 L (3.5-5.0) g/dL Assessment and Plan Assessment: 1. Acute kidney injury requiring hemodialysis 2. Hypertensive urgency 3. Every day smoker 4. Chest pain Plan: 1. Hemodialysis per recommendations from nephrology 2. Recommend smoking cessation, patient offered nicotine patch however declined. 3. Rest of medical management per primary medical team Thank you for this consultation, we will continue to follow. The impression and plan of care has been dictated as directed. Dr. Ryan I performed a history and examination of this patient, discussed the same with the dictator. I agree with the dictator's note ,documented as a scribe. Any additional findings or plans will be noted.
--- NOTE | 2024-03-14 10:15 | P.PN ---
Subjective Patient is seen in follow-up for acute kidney injury. Started on hemodialysis March 13, 2024. No problems with dialysis yesterday. Resting in bed. Family present at bedside. Has been voiding. Vital signs are stable. General: No acute distress. HEENT: Head exam is unremarkable. LUNGS: No audible rhonchi or wheezes. HEART: Rate and Rhythm are regular. ABDOMEN: Nontender. EXTREMITITES: No edema. Objective - Vital Signs Vital signs: Vital Signs Temp 97.9 F 03/14/24 08:18 Pulse 76 03/14/24 08:18 Resp 17 03/14/24 08:18 BP 146/88 03/14/24 08:18 Pulse Ox 97 03/14/24 08:18 FiO2 Intake & Output 03/13/24 03/14/24 03/14/24 18:59 06:59 18:59 Intake Total 1800 Output Total 1435 1225 350 Balance -1435 575 -350 Weight 70.307 kg Intake: Intake, IV Titration 1300 Amount Dextrose 5% in Water 1, 1300 000 ml @ 100 mls/hr IV . [id number] DANNIE with Sodium Bicarb (1 Meq/ml) 150 ml Rx#:[id number] Hemodialysis 500 Output: Urine 1435 725 350 Hemodialysis 500 Hemodialysis Net Amount 0 Other: Voiding Method Toilet Toilet Urinal Urinal # Voids 2 1 - Labs CBC & Chem 7: 03/13/24 07:13 03/14/24 07:44 Labs: Abnormal Lab Results - Last 24 Hours (Table) 03/13/24 03/13/24 03/13/24 Range/Units 11:01 11:01 11:01 Sodium (137-145) mmol/L Potassium (3.5-5.1) mmol/L Chloride (98-107) mmol/L Carbon Dioxide (22-30) mmol/L BUN (9-20) mg/dL Creatinine (0.66-1.25) mg/dL Calcium (8.4-10.2) mg/dL Iron 13 L 14 L (65-175) UG/DL % Saturation 5.70 L (15.00-50.00) Transferrin 163.0 L (204.0-354.0) mg/dL Ferritin 604.0 H (22.0-322.0) ng/mL Total Protein (6.3-8.2) g/dL Total Protein (PEP) 5.8 L (6.2-8.2) g/dL Albumin (3.5-5.0) g/dL 03/14/24 Range/Units 07:44 Sodium 135 L (137-145) mmol/L Potassium 3.4 L (3.5-5.1) mmol/L Chloride 95 L (98-107) mmol/L Carbon Dioxide 31 H (22-30) mmol/L BUN 66 H (9-20) mg/dL Creatinine 8.18 H* (0.66-1.25) mg/dL Calcium 8.1 L (8.4-10.2) mg/dL Iron (65-175) UG/DL % Saturation (15.00-50.00) Transferrin (204.0-354.0) mg/dL Ferritin (22.0-322.0) ng/mL Total Protein 5.3 L (6.3-8.2) g/dL Total Protein (PEP) (6.2-8.2) g/dL Albumin 2.9 L (3.5-5.0) g/dL Assessment and Plan Plan: Assessment: 1. Acute kidney injury secondary to ATN versus acute glomerulonephritis. Creatinine over 11 on admission. Started on hemodialysis March 13, 2024. Unknown baseline renal function. No hydronephrosis noted on kidney ultrasound. Urine positive for protein and blood. Serologies negative so far. Urine eosinophils negative. UPC 4.34 g. 2. Metabolic acidosis secondary to acute kidney injury. Improved. 3. Anemia due to acute illness. Iron deficiency noted. 4. Benign hypertension. Partially due to severe renal failure. Better controlled. 5. Hypokalemia from poor intake and low potassium dialysate. Plan: Secondary treatment of hemodialysis today and third treatment tomorrow. Stop bicarb drip. Add normal saline at 50 cc an hour. Follow-up pending serologies. Add IV iron. Discussed kidney biopsy for definitive diagnosis. Unable to be done at this facility as no interventional radiologist available till April 09, 2024. Discussed transferring to another facility with patient and his family as well as primary team.
[2024-03-14] MEDS: SODIUM CHLORIDE 0.9% 1,000 ML IV SCH (10:20)
--- NOTE | 2024-03-14 10:58 | CA ---
Transthoracic Echo Report Name: Martin Go Age: 43 Gender: M : 1980 Exam Date: 03/13/2024 14:16 Exam Location: [facility] Ht (in): 65 Wt (lb): 155 Ordering Physician: Kathryn Roque Attending/Referring Phys: Invoice Checker Keisha Muro RDCS Procedure CPT: Indications: Chest Pain Cardiac Hx: Technical Quality: Good Contrast 1: Total Dose (mL): Contrast 2: Total Dose (mL): MEASUREMENTS (Male / Female) Normal Values 2D ECHO LV Diastolic Diameter PLAX 5.5 cm 4.2 - 5.9 / 3.9 - 5.3 cm LV Systolic Diameter PLAX 4.0 cm IVS Diastolic Thickness 1.0 cm 0.6 - 1.0 / 0.6 - 0.9 cm LVPW Diastolic Thickness 0.9 cm 0.6 - 1.0 / 0.6 - 0.9 cm LV Relative Wall Thickness 0.3 RV Internal Dim ED PLAX 3.5 cm LVOT Diameter 2.2 cm Aortic Root Diameter 3.7 cm LA Systolic Diameter LX 3.7 cm 3.0 - 4.0 / 2.7 - 3.8 cm LA Volume 100.5 cm??? 18 - 58 / 22 - 52 cm??? LA Volume Index 55.6 cm???/m??? 16 - 28 cm???/m??? M-MODE Aortic Root Diameter MM 3.9 cm DOPPLER MV Area PHT 3.9 cm??? Mitral E Point Velocity 83.6 cm/s Mitral A Point Velocity 61.0 cm/s Mitral E to A Ratio 1.4 MV Deceleration Time 195.5 ms TR Peak Velocity 260.5 cm/s TR Peak Gradient 27.1 mmHg FINDINGS Left Ventricle Left ventricular ejection fraction is estimated at 55-60 %. Left ventricular cavity size normal. Left ventricular wall thickness normal.Normal left ventricular systolic function with no obvious regional wall motion abnormalities. Right Ventricle Mild right ventricular dilatation. Right ventricular systolic pressure within normal limits. Right Atrium Normal right atrial size. No right atrial thrombus or mass seen. Left Atrium Severely increased left atrial volume. Mildly increased left atrial area. No left atrial thrombus or mass present. Mitral Valve Structurally normal mitral valve. No mitral stenosis, or prolapse.mild mitral regurgitation. Aortic Valve Trileaflet aortic valve. No aortic valve stenosis or regurgitation. Tricuspid Valve Structurally normal tricuspid valve. Mild tricuspid regurgitation. Pulmonic Valve Pulmonic valve not well visualized. Pericardium No pericardial effusion. Aorta Mildly dilated aortic annulus. CONCLUSIONS 1. Normal left ventricular size and systolic function 2. Mild mitral and tricuspid regurgitation with no evidence of pulmonary hypertension Previewed by: Dr. Nelsy Hatfield MD (Electronically Signed) Final Date: 14 March 2024 10:57
[2024-03-14] MEDS: POTASSIUM CHLORIDE ER 20 MEQ TAB.ER PO STA (13:17)
[2024-03-14] MEDS: SODIUM FERRIC GLUCONAT-SUCROSE 125 MG in SODIUM CHLORIDE 0.9% 100 ML IVPB SCH (13:17)
--- NOTE | 2024-03-14 14:30 | P.PN ---
Subjective Progress Note Date: 03/14/24 Consult reason: chest pain History of present illness: This is a 43-year-old male with no previous cardiac history. He does have a history of hypertension that was diagnosed when he was in the [employer] but he has been out of the [employer] for 12 years. He apparently has not been on any medications for this. He was in contact with Dr. Calabrese's office and started hydralazine yesterday and is doing paperwork in order to be established as a patient there. Otherwise he has not seen a physician in 12 years except for urgent care. Patient does not have any recent lab work done. He apparently had chest pain last evening radiating to his left arm with some shortness of breath nausea and vomited x 1. Patient was found to be in acute kidney injury requiring dialysis and vascular surgery is on for access. Patient has been taking some Motrin occasionally for headache but not excessive amount. He has not been eating for the past 2 days. He is making some urine but it is decreased. He has complained to his about difficulty urinating. Patient presented with a blood pressure of 200/119. Blood pressure is now 165/106, heart rate is in the 90s, pulse ox 97% on room air. -EKG: Sinus rhythm with LVH -Chest x-ray: No acute process. -Laboratory studies: WBC 12.1, hemoglobin 7.1. BUN 93 creatinine 11.8. Troponins 0.133, 0.114, 0.108. Influenza, RSV and COVID not detected. -Home cardiac medications: Started hydralazine yesterday. 03/14/24 Patient is seen and examined on the cardiac stepdown unit. Patient started dialysis yesterday and repeat treatment this morning. Blood pressure readings are much improved with 146/88, heart rate 76, pulse ox 97% on room air. Repeat blood work reveals sodium 135, potassium 3.4, BUN is 66 and creatinine 8.18. Echocardiogram reveals normal LV size and systolic function. Mild mitral and tricuspid regurgitation with no evidence of pulmonary hypertension. Physical examination: Gen: This is a 43-year-old male in no acute distress VS: reviewed HEENT: Head is atraumatic, normocephalic. Pupils equal, round. Sclerae is anicteric. NECK: Supple. No JVD. LUNGS: Clear to auscultation. No wheezes or rhonchi. No intercostal retractions. HEART: Regular rate and rhythm. No murmur. ABDOMEN: Soft No tenderness. EXTREMITIES: No pedal edema. No calf tenderness. NEUROLOGICAL: Patient is awake, alert and oriented x3. Assessment: Acute on chronic renal failure Uncontrolled hypertension No primary myocardial injury Anemia possibly due to renal failure Plan: Patient is currently on amlodipine 5 mg daily, hydralazine 25 mg 3 times daily, Lopressor 25 mg twice daily Further recommendations to follow based upon clinical course Nurse practitioner note has been reviewed, I agree with documented findings and plan of care. Patient was seen and examined. Objective - Vital Signs Vital signs: Vital Signs Temp 97.3 F L 03/14/24 11:41 Pulse 73 03/14/24 11:41 Resp 17 03/14/24 11:41 BP 158/91 03/14/24 13:00 Pulse Ox 98 03/14/24 11:41 FiO2 Intake & Output 03/13/24 03/14/24 03/14/24 18:59 06:59 18:59 Intake Total 1800 100 Output Total 1435 1225 350 Balance -1435 575 -250 Weight 70.307 kg Intake: Intake, IV Titration 1300 Amount Dextrose 5% in Water 1, 1300 000 ml @ 100 mls/hr IV . [id number] DANNIE with Sodium Bicarb (1 Meq/ml) 150 ml Rx#:[id number] Oral 100 Hemodialysis 500 Output: Urine 1435 725 350 Hemodialysis 500 Hemodialysis Net Amount 0 Other: Voiding Method Toilet Toilet Urinal Urinal # Voids 2 1 - Labs CBC & Chem 7: 03/13/24 07:13 03/14/24 07:44 Labs: Abnormal Lab Results - Last 24 Hours (Table) 03/13/24 03/13/24 03/13/24 Range/Units 11:01 11:01 11:01 Sodium (137-145) mmol/L Potassium (3.5-5.1) mmol/L Chloride (98-107) mmol/L Carbon Dioxide (22-30) mmol/L BUN (9-20) mg/dL Creatinine (0.66-1.25) mg/dL Calcium (8.4-10.2) mg/dL Iron 13 L 14 L (65-175) UG/DL % Saturation 5.70 L (15.00-50.00) Transferrin 163.0 L (204.0-354.0) mg/dL Ferritin 604.0 H (22.0-322.0) ng/mL Total Protein (6.3-8.2) g/dL Total Protein (PEP) 5.8 L (6.2-8.2) g/dL Albumin (3.5-5.0) g/dL 03/14/24 Range/Units 07:44 Sodium 135 L (137-145) mmol/L Potassium 3.4 L (3.5-5.1) mmol/L Chloride 95 L (98-107) mmol/L Carbon Dioxide 31 H (22-30) mmol/L BUN 66 H (9-20) mg/dL Creatinine 8.18 H* (0.66-1.25) mg/dL Calcium 8.1 L (8.4-10.2) mg/dL Iron (65-175) UG/DL % Saturation (15.00-50.00) Transferrin (204.0-354.0) mg/dL Ferritin (22.0-322.0) ng/mL Total Protein 5.3 L (6.3-8.2) g/dL Total Protein (PEP) (6.2-8.2) g/dL Albumin 2.9 L (3.5-5.0) g/dL
[2024-03-14 15:16] LABS: C-ANCA <1:20 Titer (<1:20)
--- NOTE | 2024-03-14 15:48 | P.PN ---
Subjective Progress Note Date: 03/14/24 43-year-old male came in with symptoms of generalized weakness not feeling well for last few weeks and patient found to have highly elevated creatinine of 11 and acute renal failure with BUN of around 97 patient was also having some chest pain secondary to uremia cardiology evaluated the patient. Patient with mild elevation of troponin 0.108 this is secondary to renal failure patient does have leukocytosis without any evidence of infection patient admits to taking Motrin few times a day. Patient had any gross hematuria or dysuria patient denied any fever chills patient denied any cough. 03/14/2024 Patient is evaluated in follow-up on the cardiac unit. Patient had a right femoral temporary dialysis catheter placed yesterday by vascular surgery. He has received 2 sessions of hemodialysis 1 last night and 1 today. Current creatinine is down to 8.18. Nephrology with concerns for glomerulonephritis as there is blood and protein in the urine. Patient is unable to have a kidney biopsy at this facility for 2 to 3 weeks. For this reason request for transfer to tertiary care was received. Patient has been denied at [facility] secondary to bed availability. Family does not want to go to [facility]. He has been accepted at [facility] under internal medicine Dr. Stiles and does state that he will have a bed within 2 to 5 days. He is currently a category B for transfer. Cardiology was consulted and has evaluated this patient echocardiogram completed reveals normal left ventricular size and systolic function. There is mild mitral and tricuspid regurgitation with no evidence of pulmonary hypertension. No reports of chest pain or shortness of breath at this time. Sodium of 135, potassium 3.4, BUN of 66 creatinine of 8.18, calcium of 8.1, magnesium 2.0. Liver enzymes are normal. Iron studies have been completed revealing an iron level of 14 TIBC of 228, percent saturation of 5.70 transferrin level of 163 and ferritin level of 604. Review of Systems Constitutional: Denied any fatigue denied any fever. Cardio vascular: denied any chest pain, palpitations Gastrointestinal: denied any nausea, vomiting, diarrhea Pulmonary: Denied any shortness of breath cough Neurologic denied any new focal deficits All inpatient medications were reviewed and appropriate changes in these medications as dictated in the interval history and assessment and plan. PHYSICAL EXAMINATION: GENERAL: The patient is alert and oriented x3, not in any acute distress. Well developed, well nourished. HEENT: Pupils are round and equally reacting to light. EOMI. No scleral icterus. No conjunctival pallor. Normocephalic, atraumatic. No pharyngeal erythema. No thyromegaly. CARDIOVASCULAR: S1 and S2 present. No murmurs, rubs, or gallops. PULMONARY: Chest is clear to auscultation, no wheezing or crackles. ABDOMEN: Soft, nontender, nondistended, normoactive bowel sounds. No palpable organomegaly. MUSCULOSKELETAL: No joint swelling or deformity. EXTREMITIES: No cyanosis, clubbing, or pedal edema. NEUROLOGICAL: Gross neurological examination did not reveal any focal deficits. SKIN: No rashes. Assessment and plan Acute renal failure secondary to acute tubular necrosis versus glomerulonephritis with creatinine over 11 on admission and currently down to 8. 18. Urine positive for protein and blood. Uncontrolled hypertension mostly due to the renal dysfunction and better control Troponin leak secondary to the renal dysfunction Metabolic acidosis secondary to the acute kidney injury improved Anemia with underlying iron deficiency. Nicotine use Leukocytosis, reactive Plan Hemodialysis per nephrology Monitor electrolytes and renal function Started on IV ferrlecit Continue with normal saline at 50 mL/h Patient is on a combination of oral hydralazine, oral metoprolol, oral amlodipine Cardiology following closely Patient has been accepted at [facility] under the internal medicine Dr. Stiles pending bed for kidney biopsy. Patients qian Amos would like to be notified of any changes/updates to the transfer Greater than 35 minutes have been spent on coordination of care, discussion with family, and transfer to tertiary care facility. The impression and plan of care has been dictated by Kathryn Roque, Nurse Practitioner as directed. Dr. Gracie MD I have performed a history and physical examination and medical decision making of this patient, discussed the same with the dictator, and agree with the dictators assessment and plan as written, documented as a scribe. Based on total visit time, I have performed more than 50% of this visit. Objective - Vital Signs Vital signs: Vital Signs Temp 97.9 F 03/14/24 08:18 Pulse 76 03/14/24 08:18 Resp 17 03/14/24 08:18 BP 146/88 03/14/24 08:18 Pulse Ox 97 03/14/24 08:18 FiO2 Intake & Output 03/13/24 03/14/24 03/14/24 18:59 06:59 18:59 Intake Total 1800 Output Total 1435 1225 Balance -1435 575 Weight 70.307 kg Intake: Intake, IV Titration 1300 Amount Dextrose 5% in Water 1, 1300 000 ml @ 100 mls/hr IV . [id number] DANNIE with Sodium Bicarb (1 Meq/ml) 150 ml Rx#:[id number] Hemodialysis 500 Output: Urine 1435 725 Hemodialysis 500 Hemodialysis Net Amount 0 Other: Voiding Method Toilet Urinal # Voids 2 1 - Labs CBC & Chem 7: 03/13/24 07:13 03/14/24 07:44 Labs: Abnormal Lab Results - Last 24 Hours (Table) 03/13/24 03/13/24 03/13/24 Range/Units 11:01 11:01 11:01 Sodium (137-145) mmol/L Potassium (3.5-5.1) mmol/L Chloride (98-107) mmol/L Carbon Dioxide (22-30) mmol/L BUN (9-20) mg/dL Creatinine (0.66-1.25) mg/dL Calcium (8.4-10.2) mg/dL Iron 13 L 14 L (65-175) UG/DL % Saturation 5.70 L (15.00-50.00) Transferrin 163.0 L (204.0-354.0) mg/dL Ferritin 604.0 H (22.0-322.0) ng/mL Total Protein (6.3-8.2) g/dL Total Protein (PEP) 5.8 L (6.2-8.2) g/dL Albumin (3.5-5.0) g/dL 03/14/24 Range/Units 07:44 Sodium 135 L (137-145) mmol/L Potassium 3.4 L (3.5-5.1) mmol/L Chloride 95 L (98-107) mmol/L Carbon Dioxide 31 H (22-30) mmol/L BUN 66 H (9-20) mg/dL Creatinine 8.18 H* (0.66-1.25) mg/dL Calcium 8.1 L (8.4-10.2) mg/dL Iron (65-175) UG/DL % Saturation (15.00-50.00) Transferrin (204.0-354.0) mg/dL Ferritin (22.0-322.0) ng/mL Total Protein 5.3 L (6.3-8.2) g/dL Total Protein (PEP) (6.2-8.2) g/dL Albumin 2.9 L (3.5-5.0) g/dL Assessment and Plan Time with Patient: Greater than 30
[2024-03-14] MEDS: HYDROcodone/APAP 5-325MG 1 EACH TAB PO PRN (17:11)
[2024-03-14] MEDS: HYDROmorphone 0.5 MG/0.5 ML SYRINGE IVP STA (23:51)
[2024-03-15] MEDS: guaiFENesin-DM 100-10MG/5ML 10 ML CUP PO PRN (00:23)
[2024-03-15] MEDS: FAMOTIDINE 20 MG TAB PO SCH (07:41)
[2024-03-15 08:12] LABS: African American GFR (CKD) 11 (>60 ml/min/1.73 sqM); Anion Gap 9 mmol/L; Blood Urea Nitrogen 43 mg/dL (9-20); Calcium 8.2 mg/dL (8.4-10.2); Carbon Dioxide 27 mmol/L (22-30); Chloride 101 mmol/L (98-107); Glucose 86 mg/dL (74-99); Non-African American GFR(CKD) 9 (>60 ml/min/1.73 sqM); Sodium 137 mmol/L (137-145)
[2024-03-15 08:18] LABS: Basophils % (A) 0 %; Eosinophils # (A) 0.3 k/uL (0-0.7); Eosinophils % (A) 3 %; HCT 20.7 % (39.0-53.0); Lymphocytes # (A) 1.4 k/uL (1.0-4.8); Lymphocytes % (A) 17 %; MCV 90.8 fL (80.0-100.0); Mean Platelet Volume 7.3; Monocytes # (A) 0.5 k/uL (0-1.0); Monocytes % (A) 6 %; Neutrophils # (A) 6.1 k/uL (1.3-7.7); Neutrophils % (A) 71 %; Platelet Count 271 k/uL (150-450); RBC 2.28 m/uL (4.30-5.90); RDW 14.5 % (11.5-15.5); WBC 8.6 k/uL (3.8-10.6)
[2024-03-15 08:20] LABS: HGB 6.8 gm/dL (13.0-17.5)
--- NOTE | 2024-03-15 10:02 | P.PN ---
Subjective Patient is seen in follow-up for acute kidney injury. Started on hemodialysis March 13, 2024. No problems with dialysis yesterday. Resting in bed. Family present at bedside. Has been voiding. Vital signs are stable. General: No acute distress. HEENT: Head exam is unremarkable. LUNGS: No audible rhonchi or wheezes. HEART: Rate and Rhythm are regular. ABDOMEN: Nontender. EXTREMITITES: No edema. Objective - Vital Signs Vital signs: Vital Signs Temp 98.4 F 03/15/24 07:52 Pulse 77 03/15/24 07:52 Resp 17 03/15/24 07:52 BP 146/92 03/15/24 07:52 Pulse Ox 98 03/15/24 08:43 FiO2 Intake & Output 03/14/24 03/15/24 03/15/24 18:59 06:59 18:59 Intake Total 980 128 Output Total 753 300 Balance 227 -172 Intake: IV 10 Invasive Line 2 10 Oral 580 118 Hemodialysis 400 Output: Urine 353 300 Hemodialysis 400 Hemodialysis Net Amount 0 Other: Voiding Method Toilet Toilet Toilet Urinal Urinal Urinal # Voids 400 3 # Bowel Movements 0 - Labs CBC & Chem 7: 03/15/24 07:04 03/15/24 07:04 Labs: Abnormal Lab Results - Last 24 Hours (Table) 03/12/24 03/15/24 03/15/24 Range/Units 21:50 07:04 07:04 RBC 2.28 L (4.30-5.90) m/uL Hgb 6.8 L* (13.0-17.5) gm/dL Hct 20.7 L (39.0-53.0) % BUN 43 H (9-20) mg/dL Creatinine 6.78 H (0.66-1.25) mg/dL Calcium 8.2 L (8.4-10.2) mg/dL Crossmatch See Detail Assessment and Plan Plan: Assessment: 1. Acute kidney injury secondary to ATN versus acute glomerulonephritis. Creatinine over 11 on admission. Started on hemodialysis March 13, 2024. Unknown baseline renal function. No hydronephrosis noted on kidney ultrasound. Urine positive for protein and blood. Serologies negative so far. Urine eosinophils negative. UPC 4.34 g. 2. Metabolic acidosis secondary to acute kidney injury. Improved. 3. Anemia due to acute illness. Iron deficiency noted. Hemoglobin 6.8 today. 4. Benign hypertension. Partially due to severe renal failure. Stable. 5. Hypokalemia from poor intake and low potassium dialysate. Replaced. Better. Plan: Third treatment of hemodialysis today. Maintain gentle IV hydration. Follow-up pending serologies. Negative so far. Maintain IV iron. IV DDAVP x 1 dose today. Scheduled to receive a unit of blood today. Add Sharda. Discussed kidney biopsy for definitive diagnosis. Unable to be done at this facility as no interventional radiologist available till April 09, 2024. Awaits transfer to another facility for kidney biopsy.
[2024-03-15 10:22] LABS: Albumin 3.17 g/dL (3.80-4.90)
[2024-03-15] MEDS: DARBEPOETIN ALFA 40 MCG/0.4 ML SYRINGE SQ SCH (10:47)
[2024-03-15] MEDS: DESMOPRESSIN ACETATE 21 MCG in SODIUM CHLORIDE 0.9% 50 ML IVPB ONE (10:47)
--- NOTE | 2024-03-15 11:27 | P.PN ---
Subjective Progress Note Date: 03/15/24 Consult reason: chest pain History of present illness: This is a 43-year-old male with no previous cardiac history. He does have a history of hypertension that was diagnosed when he was in the [employer] but he has been out of the [employer] for 12 years. He apparently has not been on any medications for this. He was in contact with Dr. Calabrese's office and started hydralazine yesterday and is doing paperwork in order to be established as a patient there. Otherwise he has not seen a physician in 12 years except for urgent care. Patient does not have any recent lab work done. He apparently had chest pain last evening radiating to his left arm with some shortness of breath nausea and vomited x 1. Patient was found to be in acute kidney injury requiring dialysis and vascular surgery is on for access. Patient has been taking some Motrin occasionally for headache but not excessive amount. He has not been eating for the past 2 days. He is making some urine but it is decreased. He has complained to his about difficulty urinating. Patient presented with a blood pressure of 200/119. Blood pressure is now 165/106, heart rate is in the 90s, pulse ox 97% on room air. -EKG: Sinus rhythm with LVH -Chest x-ray: No acute process. -Laboratory studies: WBC 12.1, hemoglobin 7.1. BUN 93 creatinine 11.8. Troponins 0.133, 0.114, 0.108. Influenza, RSV and COVID not detected. -Home cardiac medications: Started hydralazine yesterday. 03/14/24 Patient is seen and examined on the cardiac stepdown unit. Patient started dialysis yesterday and repeat treatment this morning. Blood pressure readings are much improved with 146/88, heart rate 76, pulse ox 97% on room air. Repeat blood work reveals sodium 135, potassium 3.4, BUN is 66 and creatinine 8.18. Echocardiogram reveals normal LV size and systolic function. Mild mitral and t ricuspid regurgitation with no evidence of pulmonary hypertension. 03/15/2024 Patient is waiting for a bed in [facility]. He is continued on hemodialysis. Echocardiogram reveals EF of 55 to 60%. Mild mitral and tricuspid regurgitation with no evidence of pulmonary hypertension. Blood pr essure 130/77, heart rate in the 70s, pulse ox 97% on room air. Physical examination: Gen: This is a 43-year-old male in no acute distress VS: reviewed HEENT: Head is atraumatic, normocephalic. Pupils equal, round. Sclerae is anicteric. NECK: Supple. No JVD. LUNGS: Clear to auscultation. No wheezes or rhonchi. No intercostal retractions. HEART: Regular rate and rhythm. No murmur. ABDOMEN: Soft No tenderness. EXTREMITIES: No pedal edema. No calf tenderness. NEUROLOGICAL: Patient is awake, alert and oriented x3. Assessment: Acute on chronic renal failure Uncontrolled hypertension No primary myocardial injury Anemia possibly due to renal failure Plan: Patient is currently on amlodipine 5 mg daily, hydralazine 25 mg 3 times daily, Lopressor 25 mg twice daily Nephrology to manage hypertension, currently controlled No further cardiac workup at this time Cardiology will sign off this case and follow on an as-needed basis. Please reconsult for any new concerns. Nurse practitioner note has been reviewed, I agree with documented findings and plan of care. Patient was seen and examined. Objective - Vital Signs Vital signs: Vital Signs Temp 98.4 F 03/15/24 07:52 Pulse 77 03/15/24 07:52 Resp 17 03/15/24 07:52 BP 146/92 03/15/24 07:52 Pulse Ox 98 03/15/24 08:43 FiO2 Intake & Output 03/14/24 03/15/24 03/15/24 18:59 06:59 18:59 Intake Total 980 128 Output Total 753 Balance 227 128 Intake: IV 10 Invasive Line 2 10 Oral 580 118 Hemodialysis 400 Output: Urine 353 Hemodialysis 400 Hemodialysis Net Amount 0 Other: Voiding Method Toilet Toilet Urinal Urinal # Voids 400 1 # Bowel Movements 0 - Labs CBC & Chem 7: 03/15/24 07:04 03/15/24 07:04 Labs: Abnormal Lab Results - Last 24 Hours (Table) 03/12/24 03/15/24 03/15/24 Range/Units 21:50 07:04 07:04 RBC 2.28 L (4.30-5.90) m/uL Hgb 6.8 L* (13.0-17.5) gm/dL Hct 20.7 L (39.0-53.0) % BUN 43 H (9-20) mg/dL Creatinine 6.78 H (0.66-1.25) mg/dL Calcium 8.2 L (8.4-10.2) mg/dL Crossmatch See Detail
--- NOTE | 2024-03-15 11:38 | P.PN ---
Subjective Progress Note Date: 03/15/24 Principal diagnosis: Acute kidney failure requiring hemodialysis Follow-up on patient for acute kidney injury with placement of temporary hemodialysis catheter. Plan is for patient to be transferred to higher level of care with interventional radiologist as there is no IR available for at least 3 weeks here per recommendations from nephrology for kidney biopsy. Otherwise no acute changes. Patient's hemoglobin 6.8 and will receive 1 unit of blood. BUN and creatinine continue to improve. Objective - Vital Signs Vital signs: Vital Signs Temp 98.4 F 03/15/24 07:52 Pulse 77 03/15/24 07:52 Resp 17 03/15/24 07:52 BP 146/92 03/15/24 07:52 Pulse Ox 98 03/15/24 08:43 FiO2 Intake & Output 03/14/24 03/15/24 03/15/24 18:59 06:59 18:59 Intake Total 980 10 Output Total 753 Balance 227 10 Intake: IV 10 Invasive Line 2 10 Oral 580 Hemodialysis 400 Output: Urine 353 Hemodialysis 400 Hemodialysis Net Amount 0 Other: Voiding Method Toilet Toilet Urinal Urinal # Voids 400 # Bowel Movements 0 - Exam Patient alert and oriented. Right groin with hemodialysis catheter intact. - Labs CBC & Chem 7: 03/15/24 07:04 03/15/24 07:04 Labs: Abnormal Lab Results - Last 24 Hours (Table) 03/15/24 03/15/24 Range/Units 07:04 07:04 RBC 2.28 L (4.30-5.90) m/uL Hgb 6.8 L* (13.0-17.5) gm/dL Hct 20.7 L (39.0-53.0) % BUN 43 H (9-20) mg/dL Creatinine 6.78 H (0.66-1.25) mg/dL Calcium 8.2 L (8.4-10.2) mg/dL Assessment and Plan Assessment: 1. Acute kidney injury requiring hemodialysis 2. Hypertensive urgency 3. Every day smoker 4. Chest pain Plan: 1. Hemodialysis per recommendations from nephrology 2. Recommend smoking cessation, patient offered nicotine patch 3. Patient pending transfer to higher level of care for interventional radiology/kidney biopsy Thank you for this consultation, we will be on standby if further needed. The impression and plan of care has been dictated as directed. Dr. Ryan I performed a history and examination of this patient, discussed the same with the dictator. I agree with the dictator's note ,documented as a scribe. Any additional findings or plans will be noted.
--- NOTE | 2024-03-15 20:06 | P.PN ---
Subjective Progress Note Date: 03/15/24 43-year-old male came in with symptoms of generalized weakness not feeling well for last few weeks and patient found to have highly elevated creatinine of 11 and acute renal failure with BUN of around 97 patient was also having some chest pain secondary to uremia cardiology evaluated the patient. Patient with mild elevation of troponin 0.108 this is secondary to renal failure patient does have leukocytosis without any evidence of infection patient admits to taking Motrin few times a day. Patient had any gross hematuria or dysuria patient denied any fever chills patient denied any cough. 03/14/2024 Patient is evaluated in follow-up on the cardiac unit. Patient had a right femoral temporary dialysis catheter placed yesterday by vascular surgery. He has received 2 sessions of hemodialysis 1 last night and 1 today. Current creatinine is down to 8.18. Nephrology with concerns for glomerulonephritis as there is blood and protein in the urine. Patient is unable to have a kidney biopsy at this facility for 2 to 3 weeks. For this reason request for transfer to tertiary care was received. Patient has been denied at [facility] secondary to bed availability. Family does not want to go to [facility]. He has been accepted at [facility] under internal medicine Dr. Stiles and does state that he will have a bed within 2 to 5 days. He is currently a category B for transfer. Cardiology was consulted and has evaluated this patient echocardiogram completed reveals normal left ventricular size and systolic function. There is mild mitral and tricuspid regurgitation with no evidence of pulmonary hypertension. No reports of chest pain or shortness of breath at this time. Sodium of 135, potassium 3.4, BUN of 66 creatinine of 8.18, calcium of 8.1, magnesium 2.0. Liver enzymes are normal. Iron studies have been completed revealing an iron level of 14 TIBC of 228, percent saturation of 5.70 transferrin level of 163 and ferritin level of 604. 03/15/2024 Patient is seen in follow-up today with cardiology and nephrology following. Patient awaiting a bed assignment at [facility] with no bed available at this time and will follow-up daily with transfer team regarding this. Patient is maintained on hemodialysis undergoing dialysis currently. Hemoglobin noted to be 6.9 and will transfuse a unit of PRBC hopeful with dialysis. Will follow-up on repeat labs. Patient continues to report visual disturbances as he cannot point out colors of people's eyes and he is unable to read. Patient reports this has been ongoing over the last few days. Likely secondary to acute renal failure. Review of Systems Constitutional: Denied any fatigue denied any fever. Cardio vascular: denied any chest pain, palpitations Gastrointestinal: denied any nausea, vomiting, diarrhea Pulmonary: Denied any shortness of breath cough Neurologic denied any new focal deficits, reports continued visual disturbances All inpatient medications were reviewed and appropriate changes in these medications as dictated in the interval history and assessment and plan. PHYSICAL EXAMINATION: GENERAL: The patient is alert and oriented x3, not in any acute distress. Well developed, well nourished. HEENT: Pupils are round and equally reacting to light. EOMI. No scleral icterus. No conjunctival pallor. Normocephalic, atraumatic. No pharyngeal erythema. No thyromegaly. CARDIOVASCULAR: S1 and S2 present. No murmurs, rubs, or gallops. PULMONARY: Chest is clear to auscultation, no wheezing or crackles. ABDOMEN: Soft, nontender, nondistended, normoactive bowel sounds. No palpable organomegaly. MUSCULOSKELETAL: No joint swelling or deformity. EXTREMITIES: No cyanosis, clubbing, or pedal edema. NEUROLOGICAL: Gross neurological examination did not reveal any focal deficits. SKIN: No rashes. Assessment: Acute renal failure secondary to acute tubular necrosis versus glomerulonephritis with creatinine over 11 on admission and currently down to 8.18. Urine positive for protein and blood. Currently awaiting transfer to tertiary treatment center for kidney biopsy. Accepted at [facility] awaiting a bed. Uncontrolled hypertension mostly due to the renal dysfunction and better control Troponin leak secondary to the renal dysfunction Metabolic acidosis secondary to the acute kidney injury improved Anemia with underlying iron deficiency. Continued ongoing nicotine use Leukocytosis, reactive GI prophylaxis DVT prophylaxis Full code Plan: Hemodialysis per nephrology. Patient is scheduled to receive hemodialysis again today and kidney functions are improving. Monitor electrolytes and renal function Continue on IV ferrlecit per nephrology Patient continues to report some visual disturbances reporting he is unable to read things on the paper although denies headache. Most likely secondary to renal failure and will monitor closely for any significant changes. Continue with normal saline at 50 mL/h Patient is on a combination of oral hydralazine, oral metoprolol, oral amlodipine Cardiology following closely Patient has been accepted at [facility] under the internal medicine Dr. Stiles pending bed for kidney biopsy. Per transfer team no beds available today and will follow up and call the unit once a bed is available. Patients Bette would like to be notified of any changes/updates to the transfer The impression and plan of care has been dictated by Keya Kelley, Nurse Practitioner as directed. Dr. Gracie MD I have performed a history and physical examination and medical decision making of this patient, discussed the same with the dictator, and agree with the dictators assessment and plan as written, documented as a scribe. Based on total visit time, I have performed more than 50% of this visit. Objective - Vital Signs Vital signs: Vital Signs Temp 98.4 F 03/15/24 07:52 Pulse 77 03/15/24 07:52 Resp 17 03/15/24 07:52 BP 146/92 03/15/24 07:52 Pulse Ox 98 03/15/24 08:43 FiO2 Intake & Output 03/14/24 03/15/24 03/15/24 18:59 06:59 18:59 Intake Total 980 128 Output Total 753 Balance 227 128 Intake: IV 10 Invasive Line 2 10 Oral 580 118 Hemodialysis 400 Output: Urine 353 Hemodialysis 400 Hemodialysis Net Amount 0 Other: Voiding Method Toilet Toilet Urinal Urinal # Voids 400 1 # Bowel Movements 0 - Labs CBC & Chem 7: 03/15/24 07:04 03/15/24 07:04 Labs: Abnormal Lab Results - Last 24 Hours (Table) 03/12/24 03/15/24 03/15/24 Range/Units 21:50 07:04 07:04 RBC 2.28 L (4.30-5.90) m/uL Hgb 6.8 L* (13.0-17.5) gm/dL Hct 20.7 L (39.0-53.0) % BUN 43 H (9-20) mg/dL Creatinine 6.78 H (0.66-1.25) mg/dL Calcium 8.2 L (8.4-10.2) mg/dL Crossmatch See Detail
[2024-03-16 07:38] LABS: Basophils % (A) 0 %; Eosinophils # (A) 0.4 k/uL (0-0.7); Eosinophils % (A) 4 %; HCT 22.2 % (39.0-53.0); HGB 7.3 gm/dL (13.0-17.5); Lymphocytes # (A) 1.6 k/uL (1.0-4.8); Lymphocytes % (A) 19 %; MCH 29.8 pg (25.0-35.0); MCHC 32.9 g/dL (31.0-37.0); MCV 90.5 fL (80.0-100.0); Mean Platelet Volume 7.2; Monocytes # (A) 0.4 k/uL (0-1.0); Monocytes % (A) 5 %; Neutrophils # (A) 5.6 k/uL (1.3-7.7); Neutrophils % (A) 69 %; Platelet Count 243 k/uL (150-450); RBC 2.45 m/uL (4.30-5.90); RDW 14.3 % (11.5-15.5); WBC 8.1 k/uL (3.8-10.6)
[2024-03-16 08:00] LABS: African American GFR (CKD) 15 (>60 ml/min/1.73 sqM); Anion Gap 6 mmol/L; Blood Urea Nitrogen 25 mg/dL (9-20); Calcium 8.2 mg/dL (8.4-10.2); Carbon Dioxide 28 mmol/L (22-30); Chloride 96 mmol/L (98-107); Glucose 84 mg/dL (74-99); Non-African American GFR(CKD) 13 (>60 ml/min/1.73 sqM); Potassium 4.2 mmol/L (3.5-5.1); Sodium 130 mmol/L (137-145)
[2024-03-16] MEDS ORDERED: IPRATROPIUM-ALBUTEROL 3 ML NEB INHALATION PRN (09:59)
--- NOTE | 2024-03-16 10:14 | P.PN ---
Subjective Patient is seen in follow-up for acute kidney injury. Started on hemodialysis March 13, 2024. No problems with dialysis yesterday. Admits to pleuritic type chest pain. He attributes it to sinus congestion. Also having blurry vision. Blood pressure high this morning. Vital signs are stable. General: No acute distress. HEENT: Head exam is unremarkable. LUNGS: No audible rhonchi or wheezes. HEART: Rate and Rhythm are regular. ABDOMEN: Nontender. EXTREMITITES: No edema. Objective - Vital Signs Vital signs: Vital Signs Temp 98.1 F 03/16/24 08:00 Pulse 84 03/16/24 08:00 Resp 16 03/16/24 08:00 BP 179/106 03/16/24 08:00 Pulse Ox 96 03/16/24 08:00 FiO2 Intake & Output 03/15/24 03/16/24 03/16/24 18:59 06:59 18:59 Intake Total 1084 1550 10 Output Total 1100 Balance -16 1550 10 Weight 69.5 kg Intake: IV 20 20 10 Invasive Line 2 20 20 10 Intake, IV Titration 450 Amount Sodium Chloride 0.9% 1, 450 000 ml @ 50 mls/hr IV . Q20H [facility] Rx#:[id number] Oral 354 1080 Blood Product 310 Rc As-1 Unit 310 [id number] Hemodialysis 400 Output: Urine 700 Hemodialysis 400 Hemodialysis Net Amount 0 Other: Voiding Method Toilet Toilet Toilet Urinal Urinal Urinal # Voids 2 1 # Bowel Movements 1 - Labs CBC & Chem 7: 03/16/24 07:03 03/16/24 07:03 Labs: Abnormal Lab Results - Last 24 Hours (Table) 03/12/24 03/13/24 03/16/24 Range/Units 21:50 11:01 07:03 RBC 2.45 L (4.30-5.90) m/uL Hgb 7.3 L (13.0-17.5) gm/dL Hct 22.2 L (39.0-53.0) % Sodium (137-145) mmol/L Chloride (98-107) mmol/L BUN (9-20) mg/dL Creatinine (0.66-1.25) mg/dL Calcium (8.4-10.2) mg/dL Albumin (PEP) 3.17 L (3.80-4.90) g/dL Iolay-2-Zlpunwfyb 0.60 H (0.10-0.40) g/dL Gamma Globulins 0.60 L (0.70-1.50) g/dL Crossmatch See Detail 03/16/24 Range/Units 07:03 RBC (4.30-5.90) m/uL Hgb (13.0-17.5) gm/dL Hct (39.0-53.0) % Sodium 130 L (137-145) mmol/L Chloride 96 L (98-107) mmol/L BUN 25 H (9-20) mg/dL Creatinine 4.97 H (0.66-1.25) mg/dL Calcium 8.2 L (8.4-10.2) mg/dL Albumin (PEP) (3.80-4.90) g/dL Ahhge-8-Udpkizsqr (0.10-0.40) g/dL Gamma Globulins (0.70-1.50) g/dL Crossmatch Assessment and Plan Plan: Assessment: 1. Acute kidney injury secondary to ATN versus acute glomerulonephritis. Creatinine over 11 on admission. Started on hemodialysis March 13, 2024. Unknown baseline renal function. No hydronephrosis noted on kidney ultrasound. Urine positive for protein and blood. Serologies negative. Urine eosinophils negative. UPC 4.34 g. 2. Metabolic acidosis secondary to acute kidney injury. Improved. 3. Anemia due to acute illness. Iron deficiency noted. Status post IV DDAVP and blood transfusion. Hemoglobin improved. On Aranesp. 4. Benign hypertension. Partially due to severe renal failure. 5. Hypokalemia from poor intake and low potassium dialysate. Replaced. Better. Plan: Next hemodialysis Monday. Hep-Lock IV fluids. Maintain IV iron. Discussed kidney biopsy for definitive diagnosis. Unable to be done at this facility as no interventional radiologist available till April 09, 2024. Awaits transfer to another facility for kidney biopsy. Check CT of the brain as well as CTA of chest today. Check anti-GBM antibody. Increase amlodipine to 5 mg twice daily. Increase hydralazine dose to 50 mg 3 times daily.
--- NOTE | 2024-03-16 10:41 | CT ---
EXAMINATION TYPE: CT brain wo con DATE OF EXAM: 03/16/2024 10:29 AM COMPARISON: None. CLINICAL INDICATION: Male, 43 years old with history of headached blurred vision, headache TECHNIQUE: Brain: Axial CT images of the brain were obtained with coronal and sagittal reformats created and rev iewed. Contrast used: None. Oral contrast used: None. CT DLP: 1095.4 mGycm, Automated exposure control for dose reduction was used. FINDINGS: Brain: Extra-axial spaces: No abnormal extra-axial fluid collections. Ventricular system: Within normal limits Cerebral parenchyma: No acute intraparenchymal hemorrhage or mass effect. The lin-white junction is well differentiated. Cerebellum: Unremarkable. Mass effect: No evidence of midline shift. Intracranial vasculature: unremarkable Soft tissues: Normal. Calvarium/osseous structures: No depressed skull fracture. Paranasal sinuses and mastoid air cells: Mild scattered paranasal sinus disease. Visualized orbits: Orbital contents are intact. IMPRESSION: No acute intracranial process. [facility], , 03/16/2024 10:39 AM
--- NOTE | 2024-03-16 10:50 | CT ---
EXAMINATION TYPE: CT angio chest DATE OF EXAM: 03/16/2024 10:31 AM COMPARISON: None CLINICAL INDICATION: Male, 43 years old with history of new onset sob ro PE; TECHNIQUE/CONTRAST: CTA scan of the thorax is performed with IV Contrast, patient injected with 100 mL of Isovue 370, MIP images are created and reviewed these are created on a separate workstation.. CT DLP: mGycm, Automated exposure control for dose reduction was used. FINDINGS: Lungs/Pleura: Trace bilateral pleural effusions. Intralobular septal thickening. Scattered peripheral nodules are seen throughout the lung possibly pulmonary edema. Few scattered ground glass opacities are present throughout the lungs likely on the basis of pulmonary edema. Airway: Large airways are patent. Heart: Heart is within normal limits for size. Vasculature: There is no evidence for a filling defect within the pulmonary vasculature to suggest ac kelechi there is a 4 vessel aortic arch. Pulmonary embolism. The pulmonary artery is of normal size. Mediastinum: No gross evidence of adenopathy. Musculoskeletal: No acute osseous abnormalities Soft Tissues/lymph nodes: Unremarkable. Lower neck: No significant findings. Upper Abdomen: No significant findings. IMPRESSION: 1. Severe pulmonary edema with peripheral nodules and trace bilateral pleural effusions. Short-term follow-up recommended. 2. No evidence of pulmonary embolism. [facility], , 03/16/2024 10:47 AM
[2024-03-16] MEDS: hydrALAZINE HCL 20 MG/ML 1 ML VIAL IVP PRN (11:13)
[2024-03-16] MEDS: IPRATROPIUM-ALBUTEROL 3 ML NEB INHALATION SCH (12:09)
[2024-03-16] MEDS: FUROSEMIDE 10 MG/ML 4 ML VIAL IV STA (13:10)
[2024-03-16] MEDS: hydrALAZINE HCL 50 MG TAB PO SCH (15:30)
--- NOTE | 2024-03-16 16:25 | P.PN ---
Subjective Progress Note Date: 03/16/24 43-year-old male came in with symptoms of generalized weakness not feeling well for last few weeks and patient found to have highly elevated creatinine of 11 and acute renal failure with BUN of around 97 patient was also having some chest pain secondary to uremia cardiology evaluated the patient. Patient with mild elevation of troponin 0.108 this is secondary to renal failure patient does have leukocytosis without any evidence of infection patient admits to taking Motrin few times a day. Patient had any gross hematuria or dysuria patient denied any fever chills patient denied any cough. 03/14/2024 Patient is evaluated in follow-up on the cardiac unit. Patient had a right femoral temporary dialysis catheter placed yesterday by vascular surgery. He has received 2 sessions of hemodialysis 1 last night and 1 today. Current creatinine is down to 8.18. Nephrology with concerns for glomerulonephritis as there is blood and protein in the urine. Patient is unable to have a kidney biopsy at this facility for 2 to 3 weeks. For this reason request for transfer to tertiary care was received. Patient has been denied at [facility] secondary to bed availability. Family does not want to go to [facility]. He has been accepted at [facility] under internal medicine Dr. Stiles and does state that he will have a bed within 2 to 5 days. He is currently a category B for transfer. Cardiology was consulted and has evaluated this patient echocardiogram completed reveals normal left ventricular size and systolic function. There is mild mitral and tricuspid regurgitation with no evidence of pulmonary hypertension. No reports of chest pain or shortness of breath at this time. Sodium of 135, potassium 3.4, BUN of 66 creatinine of 8.18, calcium of 8.1, magnesium 2.0. Liver enzymes are normal. Iron studies have been completed revealing an iron level of 14 TIBC of 228, percent saturation of 5.70 transferrin level of 163 and ferritin level of 604. 03/15/2024 Patient is seen in follow-up today with cardiology and nephrology following. Patient awaiting a bed assignment at [facility] with no bed available at this time and will follow-up daily with transfer team regarding this. Patient is maintained on hemodialysis undergoing dialysis currently. Hemoglobin noted to be 6.9 and will transfuse a unit of PRBC hopeful with dialysis. Will follow-up on repeat labs. Patient continues to report visual disturbances as he cannot point out colors of people's eyes and he is unable to read. Patient reports this has been ongoing over the last few days. Likely secondary to acute renal failure. 03/16/2024 Patient is evaluated in follow-up in the medical floor he is currently still pending a bed at [facility]. Did update the [facility] transfer center and zacharyi tani there is no bed at this time. [facility] is currently not accepting patients at this time due to a bad crisis. Patient had reported blurry vision yesterday he is not having any focal neurological deficits or peripheral vision loss. This could be attributed to his hypertension a brain CT was completed which reveals no acute subacute stroke mass or intracranial bleed. Additionally patient was having increasing shortness of breath today. A chest CT angiography was done which reveals no pulmonary embolism although reveals severe pulmonary edema with peripheral nodules and trace bilateral pleural effusions. Patient was given a one-time dose of IV Lasix 40 mg. Labs today reveal a white blood cell count of 8.1, hemoglobin 7.3, sodium level 130, BUN of 25 creatinine of 4.97. He is continued on IV Ferrlecit. Review of Systems Constitutional: Denied any fatigue denied any fever. Cardio vascular: denied any chest pain, palpitations Gastrointestinal: denied any nausea, vomiting, diarrhea Pulmonary: Denied any shortness of breath cough Neurologic denied any new focal deficits, reports continued visual disturbances All inpatient medications were reviewed and appropriate changes in these medications as dictated in the interval history and assessment and plan. PHYSICAL EXAMINATION: GENERAL: The patient is alert and oriented x3, not in any acute distress. Well developed, well nourished. HEENT: Pupils are round and equally reacting to light. EOMI. No scleral icterus. No conjunctival pallor. Normocephalic, atraumatic. No pharyngeal erythema. No thyromegaly. CARDIOVASCULAR: S1 and S2 present. No murmurs, rubs, or gallops. PULMONARY: Chest is clear to auscultation, no wheezing or crackles. ABDOMEN: Soft, nontender, nondistended, normoactive bowel sounds. No palpable organomegaly. MUSCULOSKELETAL: No joint swelling or deformity. EXTREMITIES: No cyanosis, clubbing, or pedal edema. NEUROLOGICAL: Gross neurological examination did not reveal any focal deficits. No loss of peripheral vision. SKIN: No rashes. Assessment: Acute renal failure secondary to acute tubular necrosis versus glomerulonephritis with creatinine over 11 on admission and currently down to 4.97. Urine positive for protein and blood. Currently awaiting transfer to tertiary treatment center for kidney biopsy. Accepted at [facility] awaiting a bed. Uncontrolled hypertension mostly due to the renal dysfunction and better control Troponin leak secondary to the renal dysfunction Metabolic acidosis secondary to the acute kidney injury improved Anemia with underlying iron deficiency. Continued ongoing nicotine use Leukocytosis, reactive GI prophylaxis DVT prophylaxis Full code Plan: Hemodialysis per nephrology. Patient is scheduled to receive hemodialysis again today and kidney functions are improving. Monitor electrolytes and renal function Continue on IV ferrlecit per nephrology Patient continues to report some visual disturbances reporting he is unable to read things on the paper although denies headache. Most likely secondary to renal failure and will monitor closely for any significant changes. Brain CT negative. If no improvement will consider neurology consultation. Chest CTA reveals pulmonary edema status post IV lasix x 1. Patient is on a combination of oral hydralazine, oral metoprolol, oral amlodipine Cardiology following closely Patient has been accepted at [facility] under the internal medicine Dr. Stiles pending bed for kidney biopsy. Per transfer team no beds available today and will follow up and call the unit once a bed is available. No bed at [facility] today 03/16/2024. 7 people ahead of him for transfer and only 1 person has gotten a bed today per the transfer center. Patients Bette would like to be notified of any changes/updates to the transfer The impression and plan of care has been dictated by Kathryn Roque, Nurse Practitioner as directed. Dr. Gracie MD I have performed a history and physical examination and medical decision making of this patient, discussed the same with the dictator, and agree with the dictators assessment and plan as written, documented as a scribe. Based on total visit time, I have performed more than 50% of this visit. Objective - Vital Signs Vital signs: Vital Signs Temp 97.9 F 03/16/24 11:13 Pulse 76 03/16/24 13:30 Resp 16 03/16/24 13:30 BP 171/113 03/16/24 11:13 Pulse Ox 92 L 03/16/24 11:13 FiO2 Intake & Output 03/15/24 03/16/24 03/16/24 18:59 06:59 18:59 Intake Total 1084 1550 20 Output Total 1100 400 Balance -16 1550 -380 Weight 69.5 kg Intake: IV 20 20 20 Invasive Line 2 20 20 20 Intake, IV Titration 450 Amount Sodium Chloride 0.9% 1, 450 000 ml @ 50 mls/hr IV . Q20H [facility] Rx#:[id number] Oral 354 1080 Blood Product 310 Rc As-1 Unit 310 [id number] Hemodialysis 400 Output: Urine 700 400 Hemodialysis 400 Hemodialysis Net Amount 0 Other: Voiding Method Toilet Toilet Toilet Urinal Urinal Urinal # Voids 2 1 # Bowel Movements 1 - Labs CBC & Chem 7: 03/16/24 07:03 03/16/24 07:03 Labs: Abnormal Lab Results - Last 24 Hours (Table) 03/12/24 03/16/24 03/16/24 Range/Units 21:50 07:03 07:03 RBC 2.45 L (4.30-5.90) m/uL Hgb 7.3 L (13.0-17.5) gm/dL Hct 22.2 L (39.0-53.0) % Sodium 130 L (137-145) mmol/L Chloride 96 L (98-107) mmol/L BUN 25 H (9-20) mg/dL Creatinine 4.97 H (0.66-1.25) mg/dL Calcium 8.2 L (8.4-10.2) mg/dL Crossmatch See Detail Assessment and Plan Time with Patient: Less than 30
[2024-03-16] MEDS: amLODIPine 5 MG TAB PO SCH (21:01)
[2024-03-16] MEDS: ALPRAZolam 0.5 MG TAB PO PRN (22:53)
[2024-03-17 07:35] LABS: Basophils % (A) 0 %; Eosinophils # (A) 0.2 k/uL (0-0.7); Eosinophils % (A) 2 %; HCT 22.4 % (39.0-53.0); HGB 7.6 gm/dL (13.0-17.5); Lymphocytes # (A) 1.3 k/uL (1.0-4.8); Lymphocytes % (A) 14 %; MCH 30.8 pg (25.0-35.0); MCHC 34.1 g/dL (31.0-37.0); MCV 90.4 fL (80.0-100.0); Mean Platelet Volume 7.2; Monocytes # (A) 0.5 k/uL (0-1.0); Monocytes % (A) 5 %; Neutrophils # (A) 7.5 k/uL (1.3-7.7); Neutrophils % (A) 77 %; Platelet Count 254 k/uL (150-450); RBC 2.47 m/uL (4.30-5.90); RDW 14.1 % (11.5-15.5); WBC 9.8 k/uL (3.8-10.6)
[2024-03-17 07:50] LABS: African American GFR (CKD) 10 (>60 ml/min/1.73 sqM); Anion Gap 10 mmol/L; Blood Urea Nitrogen 37 mg/dL (9-20); Calcium 8.7 mg/dL (8.4-10.2); Carbon Dioxide 24 mmol/L (22-30); Chloride 94 mmol/L (98-107); Glucose 80 mg/dL (74-99); Non-African American GFR(CKD) 9 (>60 ml/min/1.73 sqM); Potassium 4.3 mmol/L (3.5-5.1); Sodium 128 mmol/L (137-145)
--- NOTE | 2024-03-17 10:49 | P.PN ---
Subjective Patient is seen in follow-up for acute kidney injury. Started on hemodialysis March 13, 2024. Irritated earlier today and states he wants to stop everything and go home. Now doing better and willing to stay. Vital signs are stable. General: No acute distress. HEENT: Head exam is unremarkable. LUNGS: No audible rhonchi or wheezes. HEART: Rate and Rhythm are regular. ABDOMEN: Nontender. EXTREMITITES: No edema. Objective - Vital Signs Vital signs: Vital Signs Temp 98.5 F 03/17/24 08:00 Pulse 72 03/17/24 08:07 Resp 16 03/17/24 08:00 BP 166/100 03/17/24 08:00 Pulse Ox 93 L 03/17/24 08:00 FiO2 Intake & Output 03/16/24 03/17/24 03/17/24 18:59 06:59 18:59 Intake Total 1145 237 Output Total 400 Balance 745 237 Weight 68.5 kg Intake: IV 20 Invasive Line 2 20 Intake, IV Titration 325 Amount Sodium Chloride 0.9% 1, 225 000 ml @ 50 mls/hr IV . Q20H [facility] Rx#:[id number] Sodium Ferric Gluconat- 100 Sucrose 125 mg In Sodium Chloride 0.9% 100 ml @ 100 mls/hr IVPB DAILY [facility] Rx#:[id number] Oral 800 237 Output: Urine 400 Other: Voiding Method Toilet Toilet Urinal Urinal - Labs CBC & Chem 7: 03/17/24 07:10 03/17/24 07:10 Labs: Abnormal Lab Results - Last 24 Hours (Table) 03/17/24 03/17/24 Range/Units 07:10 07:10 RBC 2.47 L (4.30-5.90) m/uL Hgb 7.6 L (13.0-17.5) gm/dL Hct 22.4 L (39.0-53.0) % Sodium 128 L (137-145) mmol/L Chloride 94 L (98-107) mmol/L BUN 37 H (9-20) mg/dL Creatinine 7.02 H* (0.66-1.25) mg/dL Assessment and Plan Plan: Assessment: 1. Acute kidney injury secondary to ATN versus acute glomerulonephritis. Cre atinine over 11 on admission. Started on hemodialysis March 13, 2024. Unknown baseline renal function. No hydronephrosis noted on kidney ultrasound. Urine positive for protein and blood. Serologies negative. Urine eosinophils negative. UPC 4.34 g. 2. Metabolic acidosis secondary to acute kidney injury. Improved. 3. Anemia due to acute illness. Iron deficiency noted. Status post IV iron. Status post IV DDAVP and blood transfusion. Hemoglobin improved. On Aranesp. 4. Benign hypertension. Partially due to severe renal failure. 5. Hypokalemia from poor intake and low potassium dialysate. Replaced. Better. 6. Pulmonary nodules noted on CTA. Questionable pulmonary edema. Plan: Next hemodialysis Monday. Increase dose of hydralazine to 100 mg 3 times daily. Add IV Lasix. Discussed kidney biopsy for definitive diagnosis. Unable to be done at this facility as no interventional radiologist available till April 09, 2024. Awaits transfer to another facility for kidney biopsy. Follow-up anti-GBM antibody. Increase dose of hydralazine to 100 mg.
[2024-03-17] MEDS: FUROSEMIDE 10 MG/ML 10 ML VIAL IV SCH (11:28)
[2024-03-17] MEDS: hydrALAZINE HCL 50 MG TAB PO SCH (15:31)
[2024-03-17] MEDS: ALPRAZolam 0.5 MG TAB PO PRN (20:14)
--- NOTE | 2024-03-18 03:19 | P.PN ---
Subjective Progress Note Date: 03/17/24 43-year-old male came in with symptoms of generalized weakness not feeling well for last few weeks and patient found to have highly elevated creatinine of 11 and acute renal failure with BUN of around 97 patient was also having some chest pain secondary to uremia cardiology evaluated the patient. Patient with mild elevation of troponin 0.108 this is secondary to renal failure patient does have leukocytosis without any evidence of infection patient admits to taking Motrin few times a day. Patient had any gross hematuria or dysuria patient denied any fever chills patient denied any cough. 03/14/2024 Patient is evaluated in follow-up on the cardiac unit. Patient had a right femoral temporary dialysis catheter placed yesterday by vascular surgery. He has received 2 sessions of hemodialysis 1 last night and 1 today. Current creatinine is down to 8.18. Nephrology with concerns for glomerulonephritis as there is blood and protein in the urine. Patient is unable to have a kidney biopsy at this facility for 2 to 3 weeks. For this reason request for transfer to tertiary care was received. Patient has been denied at [facility] secondary to bed availability. Family does not want to go to [facility]. He has been accepted at [facility] under internal medicine Dr. Stiles and does state that he will have a bed within 2 to 5 days. He is currently a category B for transfer. Cardiology was consulted and has evaluated this patient echocardiogram completed reveals normal left ventricular size and systolic function. There is mild mitral and tricuspid regurgitation with no evidence of pulmonary hypertension. No reports of chest pain or shortness of breath at this time. Sodium of 135, potassium 3.4, BUN of 66 creatinine of 8.18, calcium of 8.1, magnesium 2.0. Liver enzymes are normal. Iron studies have been completed revealing an iron level of 14 TIBC of 228, percent saturation of 5.70 transferrin level of 163 and ferritin level of 604. 03/15/2024 Patient is seen in follow-up today with cardiology and nephrology following. Patient awaiting a bed assignment at [facility] with no bed available at this time and will follow-up daily with transfer team regarding this. Patient is maintained on hemodialysis undergoing dialysis currently. Hemoglobin noted to be 6.9 and will transfuse a unit of PRBC hopeful with dialysis. Will follow-up on repeat labs. Patient continues to report visual disturbances as he cannot point out colors of people's eyes and he is unable to read. Patient reports this has been ongoing over the last few days. Likely secondary to acute renal failure. 03/16/2024 Patient is evaluated in follow-up in the medical floor he is currently still pending a bed at [facility]. Did update the [facility] transfer center and carol valdivia there is no bed at this time. [facility] is currently not accepting patients at this time due to a bad crisis. Patient had reported blurry vision yesterday he is not having any focal neurological deficits or peripheral vision loss. This could be attributed to his hypertension a brain CT was completed which reveals no acute subacute stroke mass or intracranial bleed. Additionally patient was having increasing shortness of breath today. A chest CT angiography was done which reveals no pulmonary embolism although reveals severe pulmonary edema with peripheral nodules and trace bilateral pleural effusions. Patient was given a one-time dose of IV Lasix 40 mg. Labs today reveal a white blood cell count of 8.1, hemoglobin 7.3, sodium level 130, BUN of 25 creatinine of 4.97. He is continued on IV Ferrlecit. 03/17/2024 Patient is seen and evaluated in follow-up with nephrology following closely. Patient maintained on hemodialysis currently awaiting transfer to [facility] for kidney biopsy. Patient will receive dialysis again tomorrow and will follow-up with repeat labs. Patient continues to report blurred vision and reported wanting to leave. Patient extremely frustrated about continuing to be hospitalized and had reported to nursing staff that he wanted dialysis catheter removed and wanted to go home. Patient also noted to be extremely anxious at times. Xanax was ordered as needed and will increase slightly. Discussed at length with patient about overall treatment plan and care along with his frustrated feelings and patient denies any suicidal ideation or thoughts of wanting to harm himself. Patient does not like being in hospitals. Patient is afebrile with no reports of chest pain or shortness of breath. Patient maintaining oxygen saturations above 95% on room air. Patient being started on Lasix therapy per nephrology and also medication adjustments to control blood pressure. Review of Systems Constitutional: Denied any fatigue denied any fever. Cardio vascular: denied any chest pain, palpitations Gastrointestinal: denied any nausea, vomiting, diarrhea Pulmonary: Denied any shortness of breath cough Neurologic denied any new focal deficits, reports continued visual disturbances All inpatient medications were reviewed and appropriate changes in these medications as dictated in the interval history and assessment and plan. PHYSICAL EXAMINATION: GENERAL: The patient is alert and oriented x3, mildly anxious. Well developed, well nourished. HEENT: Pupils are round and equally reacting to light. EOMI. No scleral icterus. No conjunctival pallor. Normocephalic, atraumatic. No pharyngeal erythema. No thyromegaly. CARDIOVASCULAR: S1 and S2 present. No murmurs, rubs, or gallops. PULMONARY: Chest is clear to auscultation, no wheezing or crackles. ABDOMEN: Soft, nontender, nondistended, normoactive bowel sounds. No palpable o rganomegaly. MUSCULOSKELETAL: No joint swelling or deformity. EXTREMITIES: No cyanosis, clubbing, or pedal edema. NEUROLOGICAL: Gross neurological examination did not reveal any focal deficits. No loss of peripheral vision. SKIN: No rashes. Assessment: Acute renal failure secondary to acute tubular necrosis versus glomerulonephritis with creatinine over 11 on admission and currently down. U rine positive for protein and blood. Currently awaiting transfer to tertiary [facility] for kidney biopsy. Accepted at [facility] awaiting a bed. Transfer team contacted for updated vitals and status and currently no bed as of yet. Uncontrolled hypertension mostly due to the renal dysfunction and better control Troponin leak secondary to the renal dysfunction Metabolic acidosis secondary to the acute kidney injury improved Anemia with underlying iron deficiency. Continued ongoing nicotine use Leukocytosis, reactive GI prophylaxis DVT prophylaxis Full code Plan: Hemodialysis per nephrology. Patient is scheduled to receive hemodialysis on Monday. Currently awaiting a transfer to [facility] for a kidney biopsy with no beds available at this time. Contacting transfer team daily. Monitor electrolytes and renal function Continue on IV ferrlecit per nephrology Patient continues to report some visual disturbances reporting he is unable to read things on the paper although denies headache. Most likely secondary to renal failure and will monitor closely for any significant changes. Brain CT negative. If no improvement will consider neurology consultation. Chest CTA reveals pulmonary edema and is being started on Lasix therapy per nephrology Patient is on a combination of oral hydralazine, oral metoprolol, oral amlodipine, adjusting medications as patient remains hypertensive Cardiology following closely Patient has been accepted at [facility] under the internal medicine Dr. Stiles pending bed for kidney biopsy. Per transfer team no beds available today and will follow up and call the unit once a bed is available. No bed at [facility] today 03/17/2024. Patients Bette would like to be notified of any changes/updates to the transfer The impression and plan of care has been dictated by Keya Kelley, Nurse Practitioner as directed. Dr. Gracie MD I have performed a history and physical examination and medical decision making of this patient, discussed the same with the dictator, and agree with the dictators assessment and plan as written, documented as a scribe. Based on total visit time, I have performed more than 50% of this visit. Objective - Vital Signs Vital signs: Vital Signs Temp 98.9 F 03/16/24 22:49 Pulse 76 03/16/24 22:49 Resp 18 03/16/24 22:49 BP 160/84 03/16/24 22:49 Pulse Ox 94 L 03/16/24 22:49 FiO2 Intake & Output 03/16/24 03/16/24 03/17/24 06:59 18:59 06:59 Intake Total 1550 1145 Output Total 400 Balance 1550 745 Weight 69.5 kg Intake: IV 20 20 Invasive Line 2 20 20 Intake, IV Titration 450 325 Amount Sodium Chloride 0.9% 1, 450 225 000 ml @ 50 mls/hr IV . Q20H DANNIE Rx#:[id number] Sodium Ferric Gluconat- 100 Sucrose 125 mg In Sodium Chloride 0.9% 100 ml @ 100 mls/hr IVPB DAILY DANNIE Rx#:[id number] Oral 1080 800 Output: Urine 400 Other: Voiding Method Toilet Toilet Urinal Urinal # Voids 1 - Labs CBC & Chem 7: 03/17/24 07:10 03/17/24 07:10 Labs: Abnormal Lab Results - Last 24 Hours (Table) 03/16/24 03/16/24 Range/Units 07:03 07:03 RBC 2.45 L (4.30-5.90) m/uL Hgb 7.3 L (13.0-17.5) gm/dL Hct 22.2 L (39.0-53.0) % Sodium 130 L (137-145) mmol/L Chloride 96 L (98-107) mmol/L BUN 25 H (9-20) mg/dL Creatinine 4.97 H (0.66-1.25) mg/dL Calcium 8.2 L (8.4-10.2) mg/dL
[2024-03-18 06:50] LABS: Basophils % (A) 0 %; Eosinophils # (A) 0.4 k/uL (0-0.7); Eosinophils % (A) 5 %; HCT 22.8 % (39.0-53.0); HGB 7.7 gm/dL (13.0-17.5); Lymphocytes # (A) 1.1 k/uL (1.0-4.8); Lymphocytes % (A) 13 %; MCHC 33.6 g/dL (31.0-37.0); Monocytes # (A) 0.4 k/uL (0-1.0); Monocytes % (A) 6 %; Neutrophils # (A) 5.9 k/uL (1.3-7.7); Neutrophils % (A) 75 %; Platelet Count 297 k/uL (150-450); RBC 2.56 m/uL (4.30-5.90); RDW 14.5 % (11.5-15.5); WBC 7.9 k/uL (3.8-10.6)
[2024-03-18 07:33] LABS: African American GFR (CKD) 8 (>60 ml/min/1.73 sqM); Anion Gap 14 mmol/L; Blood Urea Nitrogen 44 mg/dL (9-20); Calcium 8.7 mg/dL (8.4-10.2); Carbon Dioxide 20 mmol/L (22-30); Chloride 95 mmol/L (98-107); Glucose 79 mg/dL (74-99); Non-African American GFR(CKD) 7 (>60 ml/min/1.73 sqM); Potassium 4.3 mmol/L (3.5-5.1); Sodium 129 mmol/L (137-145)
--- NOTE | 2024-03-18 15:29 | P.PN ---
Subjective Patient is seen in follow-up for acute kidney injury. Started on hemodialysis March 13, 2024. No active complaints. Scheduled for dialysis today. Vital signs are stable. General: No acute distress. HEENT: Head exam is unremarkable. LUNGS: No audible rhonchi or wheezes. HEART: Rate and Rhythm are regular. ABDOMEN: Nontender. EXTREMITITES: No edema. Objective - Vital Signs Vital signs: Vital Signs Temp 98 F 03/18/24 08:00 Pulse 71 03/18/24 11:29 Resp 16 03/18/24 11:29 BP 151/83 03/18/24 11:29 Pulse Ox 96 03/18/24 11:29 FiO2 Intake & Output 03/17/24 03/18/24 03/18/24 18:59 06:59 18:59 Intake Total 1160 240 240 Output Total 50 Balance 1160 190 240 Weight 86.4 kg Intake: Intake, IV Titration 200 Amount Sodium Ferric Gluconat- 200 Sucrose 125 mg In Sodium Chloride 0.9% 100 ml @ 100 mls/hr IVPB DAILY [facility] Rx#:[id number] Oral 960 240 240 Output: Urine 50 Other: Voiding Method Toilet Toilet Toilet Urinal Urinal # Voids 1 1 - Labs CBC & Chem 7: 03/18/24 05:46 03/18/24 05:46 Labs: Abnormal Lab Results - Last 24 Hours (Table) 03/18/24 03/18/24 Range/Units 05:46 05:46 RBC 2.56 L (4.30-5.90) m/uL Hgb 7.7 L (13.0-17.5) gm/dL Hct 22.8 L (39.0-53.0) % Sodium 129 L (137-145) mmol/L Chloride 95 L (98-107) mmol/L Carbon Dioxide 20 L (22-30) mmol/L BUN 44 H (9-20) mg/dL Creatinine 8.94 H* (0.66-1.25) mg/dL Assessment and Plan Plan: Assessment: 1. Acute kidney injury secondary to ATN versus acute glomerulonephritis. Creatinine over 11 on admission. Started on hemodialysis March 13, 2024. Unknown baseline renal function. No hydronephrosis noted on kidney ultrasound. Urine positive for protein and blood. Serologies negative. Urine eosinophils negative. UPC 4.34 g. 2. Metabolic acidosis secondary to acute kidney injury. Improved with dial ysis. 3. Anemia due to acute illness. Iron deficiency noted. Status post IV iron. Status post IV DDAVP and blood transfusion. Hemoglobin improved. On Aranesp. 4. Benign hypertension. Partially due to severe renal failure. 5. Hypokalemia from poor intake and low potassium dialysate. Replaced. Better. 6. Pulmonary nodules noted on CTA. Questionable pulmonary edema. 7. Hyponatremia secondary to acute kidney injury. Expect improvement postdialysis. Plan: Hemodialysis today. Maintain IV Lasix. Discussed kidney biopsy for definitive diagnosis. Unable to be done at this facility as no interventional radiologist available till April 09, 2024. Awaits transfer to [facility] for kidney biopsy. Follow-up anti-GBM antibody.
--- NOTE | 2024-03-19 02:28 | P.PN ---
Subjective Progress Note Date: 03/18/24 43-year-old male came in with symptoms of generalized weakness not feeling well for last few weeks and patient found to have highly elevated creatinine of 11 and acute renal failure with BUN of around 97 patient was also having some chest pain secondary to uremia cardiology evaluated the patient. Patient with mild elevation of troponin 0.108 this is secondary to renal failure patient does have leukocytosis without any evidence of infection patient admits to taking Motrin few times a day. Patient had any gross hematuria or dysuria patient denied any fever chills patient denied any cough. 03/14/2024 Patient is evaluated in follow-up on the cardiac unit. Patient had a right femoral temporary dialysis catheter placed yesterday by vascular surgery. He has received 2 sessions of hemodialysis 1 last night and 1 today. Current creatinine is down to 8.18. Nephrology with concerns for glomerulonephritis as there is blood and protein in the urine. Patient is unable to have a kidney biopsy at this facility for 2 to 3 weeks. For this reason request for transfer to tertiary care was received. Patient has been denied at [facility] secondary to bed availability. Family does not want to go to [facility]. He has been accepted at [facility] under internal medicine Dr. Stiles and does state that he will have a bed within 2 to 5 days. He is currently a category B for transfer. Cardiology was consulted and has evaluated this patient echocardiogram completed reveals normal left ventricular size and systolic function. There is mild mitral and tricuspid regurgitation with no evidence of pulmonary hypertension. No reports of chest pain or shortness of breath at this time. Sodium of 135, potassium 3.4, BUN of 66 creatinine of 8.18, calcium of 8.1, magnesium 2.0. Liver enzymes are normal. Iron studies have been completed revealing an iron level of 14 TIBC of 228, percent saturation of 5.70 transferrin level of 163 and ferritin level of 604. 03/15/2024 Patient is seen in follow-up today with cardiology and nephrology following. Patient awaiting a bed assignment at [facility] with no bed available at this time and will follow-up daily with transfer team regarding this. Patient is maintained on hemodialysis undergoing dialysis currently. Hemoglobin noted to be 6.9 and will transfuse a unit of PRBC hopeful with dialysis. Will follow-up on repeat labs. Patient continues to report visual disturbances as he cannot point out colors of people's eyes and he is unable to read. Patient reports this has been ongoing over the last few days. Likely secondary to acute renal failure. 03/16/2024 Patient is evaluated in follow-up in the medical floor he is currently still pending a bed at [facility]. Did update the [facility] transfer center and ag skip there is no bed at this time. [facility] is currently not accepting patients at this time due to a bad crisis. Patient had reported blurry vision yesterday he is not having any focal neurological deficits or peripheral vision loss. This could be attributed to his hypertension a brain CT was completed which reveals no acute subacute stroke mass or intracranial bleed. Additionally patient was having increasing shortness of breath today. A chest CT angiography was done which reveals no pulmonary embolism although reveals severe pulmonary edema with peripheral nodules and trace bilateral pleural effusions. Patient was given a one-time dose of IV Lasix 40 mg. Labs today reveal a white blood cell count of 8.1, hemoglobin 7.3, sodium level 130, BUN of 25 creatinine of 4.97. He is continued on IV Ferrlecit. 03/17/2024 Patient is seen and evaluated in follow-up with nephrology following closely. Patient maintained on hemodialysis currently awaiting transfer to [facility] for kidney biopsy. Patient will receive dialysis again tomorrow and will follow-up with repeat labs. Patient continues to report blurred vision and reported wanting to leave. Patient extremely frustrated about continuing to be hospitalized and had reported to nursing staff that he wanted dialysis catheter removed and wanted to go home. Patient also noted to be extremely anxious at times. Xanax was ordered as needed and will increase slightly. Discussed at length with patient about overall treatment plan and care along with his frustrated feelings and patient denies any suicidal ideation or thoughts of wanting to harm himself. Patient does not like being in hospitals. Patient is afebrile with no reports of chest pain or shortness of breath. Patient maintaining oxygen saturations above 95% on room air. Patient being started on Lasix therapy per nephrology and also medication adjustments to control blood pressure. 03/18/2024 Patient is seen in follow-up today continues to await a bed at [facility] for biopsy of the kidney. Patient being followed by nephrology maintained on IV diuresis along with continued hemodialysis and scheduled to receive dialysis today. Sodium trending down and 129. Creatinine above 8 at this time. Patient is afebrile with no reports of chest pain or shortness of breath. Patient not eating much and reports everything tastes like the medications and not much of an appetite. Patient is anxious as he remains hospitalized continuing to wait for a bed. Mother at the bedside and concerned as well as they were told it could take up to 5 days on transfer. Review of Systems Constitutional: Denied any fatigue denied any fever. Cardio vascular: denied any chest pain, palpitations Gastrointestinal: denied any nausea, vomiting, diarrhea Pulmonary: Denied any shortness of breath cough Neurologic denied any new focal deficits, reports continued visual disturbances All inpatient medications were reviewed and appropriate changes in these medicat ions as dictated in the interval history and assessment and plan. PHYSICAL EXAMINATION: GENERAL: The patient is alert and oriented x3, mildly anxious. Well developed, well nourished. Obese HEENT: Pupils are round and equally reacting to light. EOMI. No scleral icterus. No conjunctival pallor. Normocephalic, atraumatic. No pharyngeal erythema. No thyromegaly. CARDIOVASCULAR: S1 and S2 present. No murmurs, rubs, or gallops. PULMONARY: Chest is clear to auscultation, no wheezing or crackles. ABDOMEN: Soft, nontender, nondistended, normoactive bowel sounds. No palpable organomegaly. MUSCULOSKELETAL: No joint swelling or deformity. EXTREMITIES: No cyanosis, clubbing, or pedal edema. NEUROLOGICAL: Gross neurological examination did not reveal any focal deficits. No loss of peripheral vision. SKIN: No rashes. Assessment: Acute renal failure secondary to acute tubular necrosis versus glomerulonephritis with creatinine over 11 on admission and currently down. Urine positive for protein and blood. Uncontrolled hypertension mostly due to the renal dysfunction and better control Troponin leak secondary to the renal dysfunction Metabolic acidosis secondary to the acute kidney injury improved Anemia with underlying iron deficiency. Continued ongoing nicotine use Leukocytosis, reactive GI prophylaxis DVT prophylaxis Full code Plan: Hemodialysis per nephrology. Patient is scheduled to receive hemodialysis today. Currently remains awaiting a transfer to [facility] for a kidney biopsy with no beds available at this time. Contacting transfer team daily and was told there is no bed today. Monitor electrolytes and renal function, sodium trending down at 129 maintained on diuretics per nephrology hold Continue on IV ferrlecit per nephrology Patient continues to report some visual disturbances reporting he is unable to read things on the paper although denies headache. Most likely secondary to renal failure and will monitor closely for any significant changes. Brain CT negative. If no improvement will consider neurology consultation. Chest CTA reveals pulmonary edema and is being started on Lasix therapy per nephrology Patient is on a combination of oral hydralazine, oral metoprolol, oral amlodipine, adjusting medications as patient remains hypertensive Cardiology following closely Patient has been accepted at [facility] under the internal medicine Dr. Landon davalos pending bed for kidney biopsy. Per transfer team no beds available today and will follow up and call the unit once a bed is available. No bed at [facility] today 03/18/2024. Patients Bette would like to be notified of any changes/updates to the transfer The impression and plan of care has been dictated by Keya Kelley, Nurse Practitioner as directed. Dr. Ferny MD I have performed a history and physical examination and medical decision making of this patient, discussed the same with the dictator, and agree with the dictators assessment and plan as written, documented as a scribe. Based on total visit time, I have performed more than 50% of this visit. Objective - Vital Signs Vital signs: Vital Signs Temp 97.8 F 03/19/24 00:00 Pulse 71 03/19/24 00:00 Resp 15 03/19/24 00:00 BP 142/82 03/19/24 00:00 Pulse Ox 96 03/19/24 00:00 FiO2 Intake & Output 03/18/24 03/18/24 03/19/24 06:59 18:59 06:59 Intake Total 240 780 600 Output Total 50 3300 Balance 190 780 -2700 Weight 86.4 kg Intake: Oral 240 780 Hemodialysis 600 Output: Urine 50 Hemodialysis 1950 Hemodialysis Net Amount 1350 Other: Voiding Method Toilet Toilet Toilet Urinal # Voids 1 1 - Labs CBC & Chem 7: 03/18/24 05:46 03/18/24 05:46 Labs: Abnormal Lab Results - Last 24 Hours (Table) 03/18/24 03/18/24 Range/Units 05:46 05:46 RBC 2.56 L (4.30-5.90) m/uL Hgb 7.7 L (13.0-17.5) gm/dL Hct 22.8 L (39.0-53.0) % Sodium 129 L (137-145) mmol/L Chloride 95 L (98-107) mmol/L Carbon Dioxide 20 L (22-30) mmol/L BUN 44 H (9-20) mg/dL Creatinine 8.94 H* (0.66-1.25) mg/dL
[2024-03-19 11:36] LABS: Basophils % (A) 1 %; Eosinophils # (A) 0.4 k/uL (0-0.7); Eosinophils % (A) 6 %; HCT 25.9 % (39.0-53.0); HGB 8.7 gm/dL (13.0-17.5); Lymphocytes # (A) 1.2 k/uL (1.0-4.8); Lymphocytes % (A) 17 %; MCH 30.1 pg (25.0-35.0); MCHC 33.7 g/dL (31.0-37.0); MCV 89.4 fL (80.0-100.0); Mean Platelet Volume 7.2; Monocytes # (A) 0.6 k/uL (0-1.0); Monocytes % (A) 8 %; Neutrophils # (A) 4.8 k/uL (1.3-7.7); Neutrophils % (A) 66 %; Platelet Count 366 k/uL (150-450); RDW 14.5 % (11.5-15.5); WBC 7.3 k/uL (3.8-10.6)
[2024-03-19 11:56] LABS: ALT 23 U/L (4-49); AST 26 U/L (17-59); African American GFR (CKD) 13 (>60 ml/min/1.73 sqM); Albumin 3.4 g/dL (3.5-5.0); Alkaline Phosphatase 105 U/L (38-126); Anion Gap 10 mmol/L; Blood Urea Nitrogen 21 mg/dL (9-20); Calcium 8.7 mg/dL (8.4-10.2); Carbon Dioxide 30 mmol/L (22-30); Chloride 94 mmol/L (98-107); Glucose 75 mg/dL (74-99); Magnesium 2.2 mg/dL (1.6-2.3); Non-African American GFR(CKD) 11 (>60 ml/min/1.73 sqM); Potassium 3.8 mmol/L (3.5-5.1); Sodium 134 mmol/L (137-145); Total Bilirubin 0.4 mg/dL (0.2-1.3); Total Protein 6.1 g/dL (6.3-8.2)
[2024-03-19 14:43] VITALS: BMI 31.4
--- NOTE | 2024-03-19 20:55 | P.PN ---
Subjective Patient is seen for follow-up for acute kidney injury. Awaiting bed at [facility]. No significant complaints today except for mild lightheadedness yesterday while going to the bathroom. No complaints of shortness of breath. Status post hemodialysis yesterday. Objective - Vital Signs Vital signs: Vital Signs Temp 99.1 F 03/19/24 19:49 Pulse 78 03/19/24 19:49 Resp 16 03/19/24 19:49 BP 130/70 03/19/24 19:49 Pulse Ox 96 03/19/24 19:49 FiO2 Intake & Output 03/19/24 03/19/24 03/20/24 06:59 18:59 06:59 Intake Total 840 780 Output Total 3300 Balance -2460 780 Weight 85.5 kg 85.5 kg Intake: Oral 240 780 Hemodialysis 600 Output: Hemodialysis 1950 Hemodialysis Net Amount 1350 Other: Voiding Method Toilet Toilet # Voids 1 - Exam Patient is awake, comfortable, alert oriented x 3 Examination of the heart S1 and S2 Examination of the lungs bilateral breath sounds are heard Abdomen is soft nontender Examination of lower extremities shows no significant edema ELEMENT BURNER exam grossly intact - Labs CBC & Chem 7: 03/19/24 10:40 03/19/24 10:40 Labs: Abnormal Lab Results - Last 24 Hours (Table) 03/19/24 03/19/24 Range/Units 10:40 10:40 RBC 2.90 L (4.30-5.90) m/uL Hgb 8.7 L (13.0-17.5) gm/dL Hct 25.9 L (39.0-53.0) % Sodium 134 L (137-145) mmol/L Chloride 94 L (98-107) mmol/L BUN 21 H (9-20) mg/dL Creatinine 5.87 H (0.66-1.25) mg/dL Total Protein 6.1 L (6.3-8.2) g/dL Albumin 3.4 L (3.5-5.0) g/dL Assessment and Plan Assessment: 1. Acute kidney injury secondary to ATN versus acute glomerulonephritis. Creatinine over 11 on admission. Started on hemodialysis March 13, 2024. Unknown baseline renal function. No hydronephrosis noted on kidney ultrasound. Urine positive for protein and blood. Serologies negative. Urine eosinophils negative. UPC 4.34 g. 2. Metabolic acidosis secondary to acute kidney injury. Improved with dialysis. 3. Anemia due to acute illness. Iron deficiency noted. Status post IV iron. Status post IV DDAVP and blood transfusion. Hemoglobin improved. On Aranesp. 4. Benign hypertension. Partially due to severe renal failure. 5. Hypokalemia from poor intake and low potassium dialysate. Replaced. Better. 6. Pulmonary nodules noted on CTA. Questionable pulmonary edema. 7. Hyponatremia secondary to acute kidney injury. Improved with hemodialysis. Plan: Awaiting transfer to tertiary care hospital for kidney biopsy as interventional was radiologist is not available at our facility for another 3 weeks. Hemodialysis in a.m.
--- NOTE | 2024-03-20 05:18 | P.PN ---
Subjective Progress Note Date: 03/19/24 43-year-old male came in with symptoms of generalized weakness not feeling well for last few weeks and patient found to have highly elevated creatinine of 11 and acute renal failure with BUN of around 97 patient was also having some chest pain secondary to uremia cardiology evaluated the patient. Patient with mild elevation of troponin 0.108 this is secondary to renal failure patient does have leukocytosis without any evidence of infection patient admits to taking Motrin few times a day. Patient had any gross hematuria or dysuria patient denied any fever chills patient denied any cough. 03/14/2024 Patient is evaluated in follow-up on the cardiac unit. Patient had a right femoral temporary dialysis catheter placed yesterday by vascular surgery. He has received 2 sessions of hemodialysis 1 last night and 1 today. Current creatinine is down to 8.18. Nephrology with concerns for glomerulonephritis as there is blood and protein in the urine. Patient is unable to have a kidney biopsy at this facility for 2 to 3 weeks. For this reason request for transfer to tertiary care was received. Patient has been denied at [facility] secondary to bed availability. Family does not want to go to [facility]. He has been accepted at [facility] under internal medicine Dr. Stiles and does state that he will have a bed within 2 to 5 days. He is currently a category B for transfer. Cardiology was consulted and has evaluated this patient echocardiogram completed reveals normal left ventricular size and systolic function. There is mild mitral and tricuspid regurgitation with no evidence of pulmonary hypertension. No reports of chest pain or shortness of breath at this time. Sodium of 135, potassium 3.4, BUN of 66 creatinine of 8.18, calcium of 8.1, magnesium 2.0. Liver enzymes are normal. Iron studies have been completed revealing an iron level of 14 TIBC of 228, percent saturation of 5.70 transferrin level of 163 and ferritin level of 604. 03/15/2024 Patient is seen in follow-up today with cardiology and nephrology following. Patient awaiting a bed assignment at [facility] with no bed available at this time and will follow-up daily with transfer team regarding this. Patient is maintained on hemodialysis undergoing dialysis currently. Hemoglobin noted to be 6.9 and will transfuse a unit of PRBC hopeful with dialysis. Will follow-up on repeat labs. Patient continues to report visual disturbances as he cannot point out colors of people's eyes and he is unable to read. Patient reports this has been ongoing over the last few days. Likely secondary to acute renal failure. 03/16/2024 Patient is evaluated in follow-up in the medical floor he is currently still pending a bed at [facility]. Did update the [facility] transfer center and ag skip there is no bed at this time. [facility] is currently not accepting patients at this time due to a bad crisis. Patient had reported blurry vision yesterday he is not having any focal neurological deficits or peripheral vision loss. This could be attributed to his hypertension a brain CT was completed which reveals no acute subacute stroke mass or intracranial bleed. Additionally patient was having increasing shortness of breath today. A chest CT angiography was done which reveals no pulmonary embolism although reveals severe pulmonary edema with peripheral nodules and trace bilateral pleural effusions. Patient was given a one-time dose of IV Lasix 40 mg. Labs today reveal a white blood cell count of 8.1, hemoglobin 7.3, sodium level 130, BUN of 25 creatinine of 4.97. He is continued on IV Ferrlecit. 03/17/2024 Patient is seen and evaluated in follow-up with nephrology following closely. Patient maintained on hemodialysis currently awaiting transfer to [facility] for kidney biopsy. Patient will receive dialysis again tomorrow and will follow-up with repeat labs. Patient continues to report blurred vision and reported wanting to leave. Patient extremely frustrated about continuing to be hospitalized and had reported to nursing staff that he wanted dialysis catheter removed and wanted to go home. Patient also noted to be extremely anxious at times. Xanax was ordered as needed and will increase slightly. Discussed at length with patient about overall treatment plan and care along with his frustrated feelings and patient denies any suicidal ideation or thoughts of wanting to harm himself. Patient does not like being in hospitals. Patient is afebrile with no reports of chest pain or shortness of breath. Patient maintaining oxygen saturations above 95% on room air. Patient being started on Lasix therapy per nephrology and also medication adjustments to control blood pressure. 03/18/2024 Patient is seen in follow-up today continues to await a bed at [facility] for biopsy of the kidney. Patient being followed by nephrology maintained on IV diuresis along with continued hemodialysis and scheduled to receive dialysis today. Sodium trending down and 129. Creatinine above 8 at this time. Patient is afebrile with no reports of chest pain or shortness of breath. Patient not eating much and reports everything tastes like the medications and not much of an appetite. Patient is anxious as he remains hospitalized continuing to wait for a bed. Mother at the bedside and concerned as well as they were told it could take up to 5 days on transfer. 03/19/2024 Patient is seen in follow-up with nephrology following closely. Patient continu es to elicit visual disturbances and most recent CAT scan was negative. Will consult neurology and appreciate input recommendations. Likely secondary to acute renal failure although will await further evaluation. Patient continues to await a bed assignment at [facility] in [place] for tertiary treatment to obtain kidney biopsy as we have no interventional radiology here available for minimum 3 weeks. Patient is continued on hemodialysis with nephrology following. Review of Systems Constitutional: Denied any fatigue denied any fever. Cardio vascular: denied any chest pain, palpitations Gastrointestinal: denied any nausea, vomiting, diarrhea Pulmonary: Denied any shortness of breath cough Neurologic denied any new focal deficits, reports continued visual disturbances that persist All inpatient medications were reviewed and appropriate changes in these medications as dictated in the interval history and assessment and plan. PHYSICAL EXAMINATION: GENERAL: The patient is alert and oriented x3, mildly anxious. Well developed, well nourished. Obese HEENT: Pupils are round and equally reacting to light. EOMI. No scleral icterus. No conjunctival pallor. Normocephalic, atraumatic. No pharyngeal erythema. No thyromegaly. CARDIOVASCULAR: S1 and S2 present. No murmurs, rubs, or gallops. PULMONARY: Chest is clear to auscultation, no wheezing or crackles. ABDOMEN: Soft, nontender, nondistended, normoactive bowel sounds. No palpable organomegaly. MUSCULOSKELETAL: No joint swelling or deformity. EXTREMITIES: No cyanosis, clubbing, or pedal edema. NEUROLOGICAL: Gross neurological examination did not reveal any focal deficits. No loss of peripheral vision. SKIN: No rashes. Assessment: Acute renal failure secondary to acute tubular necrosis versus glomerulonephritis with creatinine over 11 on admission and currently down. Urine positive for protein and blood. Uncontrolled hypertension mostly due to the renal dysfunction and better control Troponin leak secondary to the renal dysfunction Metabolic acidosis secondary to the acute kidney injury improved Anemia with underlying iron deficiency. Continued ongoing nicotine use Leukocytosis, reactive GI prophylaxis DVT prophylaxis Full code Plan: Hemodialysis per nephrology. Patient is scheduled to receive hemodialysis tomorrow 03/20/2024. Currently remains awaiting a transfer to [facility] for a kidney biopsy with no beds available at this time. Contacting transfer team daily and was told there is no bed today. Monitor electrolytes and renal function, sodium trending down at 129 maintained on diuretics per nephrology Patient has received IV ferrlecit per nephrology Patient continues to report some visual disturbances reporting he is unable to read things on the paper although denies headache. Most likely secondary to renal failure and will monitor closely for any significant changes. Brain CT negative. Will consult neurology and appreciate input and recommendations Chest CTA reveals pulmonary edema and is being continued on Lasix therapy per nephrology Patient is on a combination of oral hydralazine, oral metoprolol, oral amlodipine, adjusting medications as patient remains hypertensive Cardiology following closely Patient has been accepted at [facility] under the internal medicine Dr. Stiles pending bed for kidney biopsy. Per transfer team no beds available today and will follow up and call the unit once a bed is available. No bed at [facility] today 03/19/2024. Patients Bette would like to be notified of any changes/updates to the transfer The impression and plan of care has been dictated by Keya Kelley, Nurse Practitioner as directed. Dr. Ferny MD I have performed a history and physical examination and medical decision making of this patient, discussed the same with the dictator, and agree with the dictators assessment and plan as written, documented as a scribe. Based on total visit time, I have performed more than 50% of this visit. Objective - Vital Signs Vital signs: Vital Signs Temp 98.2 F 03/19/24 04:00 Pulse 73 03/19/24 04:00 Resp 15 03/19/24 04:00 BP 131/75 03/19/24 04:00 Pulse Ox 96 03/19/24 04:00 FiO2 Intake & Output 03/18/24 03/19/24 03/19/24 18:59 06:59 18:59 Intake Total 780 840 Output Total 3300 Balance 780 -2460 Weight 85.5 kg Intake: Oral 780 240 Hemodialysis 600 Output: Hemodialysis 1950 Hemodialysis Net Amount 1350 Other: Voiding Method Toilet Toilet # Voids 1 - Labs CBC & Chem 7: 03/19/24 10:40 03/19/24 10:40
[2024-03-20 07:15] LABS: Basophils # (A) 0.1 k/uL (0-0.2); Basophils % (A) 1 %; Eosinophils # (A) 0.5 k/uL (0-0.7); Eosinophils % (A) 7 %; HCT 28.6 % (39.0-53.0); HGB 9.4 gm/dL (13.0-17.5); Lymphocytes # (A) 1.3 k/uL (1.0-4.8); Lymphocytes % (A) 19 %; MCHC 32.9 g/dL (31.0-37.0); MCV 91.2 fL (80.0-100.0); Mean Platelet Volume 7.5; Monocytes # (A) 0.4 k/uL (0-1.0); Monocytes % (A) 6 %; Neutrophils # (A) 4.5 k/uL (1.3-7.7); Neutrophils % (A) 66 %; Platelet Count 446 k/uL (150-450); RBC 3.13 m/uL (4.30-5.90); RDW 14.8 % (11.5-15.5); WBC 6.9 k/uL (3.8-10.6)
[2024-03-20 07:30] LABS: African American GFR (CKD) 9 (>60 ml/min/1.73 sqM); Anion Gap 16 mmol/L; Blood Urea Nitrogen 32 mg/dL (9-20); Carbon Dioxide 23 mmol/L (22-30); Chloride 94 mmol/L (98-107); Glucose 147 mg/dL (74-99); Non-African American GFR(CKD) 8 (>60 ml/min/1.73 sqM); Potassium 3.7 mmol/L (3.5-5.1); Sodium 133 mmol/L (137-145)
[2024-03-20] MEDS: NICOTINE 21MG/24HR PATCH TRANSDERM SCH (08:50)
--- NOTE | 2024-03-20 13:28 | US ---
EXAMINATION TYPE: US carotid duplex BILAT DATE OF EXAM: 03/20/2024 COMPARISON: NONE CLINICAL INDICATION: Male, 43 years old with history of Blurred vision; HTN. Bilateral blurred visio n but right eye has gone back to normal per patient. No hx tia or stroke. Additional History: .... TECHNIQUE: Grayscale, color Doppler and spectral Doppler evaluation of the bilateral carotid systems and vertebral arteries. Indirect Doppler criteria was utilized. FINDINGS: EXAM MEASUREMENTS: RIGHT: Peak Systolic Velocity (PSV) cm/sec ----- Right CCA: 98.5 ----- Right ICA: 129.9 ----- Right ECA: 151.0 ICA/CCA ratio: 1.3 RIGHT: End Diastole cm/sec ----- Right CCA: 29.2 ----- Right ICA: 39.2 ----- Right ECA: 18.9 LEFT: Peak Systolic Velocity (PSV) cm/sec ----- Left CCA: 127.0 ----- Left ICA: 120.5 ----- Left ECA: 125.8 ICA/CCA ratio: 0.9 LEFT: End Diastole cm/sec ----- Left CCA: 38.1 ----- Left ICA: 41.3 ----- Left ECA: 19.2 VERTEBRALS (direction of flow): Right Vertebral: Antegrade Left Vertebral: Antegrade Rhythm: Normal DEHORNER NOTES: Bilateral wall thickening. Elevated right ECA velocity. Color Doppler imaging shows patency with blood flow throughout the carotid artery. Spectral waveforms are within normal limits. IMPRESSION: Right: 50-69% stenosis of the carotid bifurcation by peak systolic velocity, normal ratio. Left: No hemodynamically significant stenosis. Criteria for Assigning % of Stenosis / Diameter reduction (Estimation based on the indirect measurements of the internal carotid artery velocities (ICA PSV). 1. Normal (no stenosis)=ICA PSV < 125 cm/s: ratio < 2.0: ICA EDV<40 cm/s. 2. Less than 50% stenosis=ICA PSV < 125 cm/s: ratio < 2.0: ICA EDV<40 cm/s. 3. 50 to 69% stenosis=ICA PSV of 125 to 230 cm/s: ration 2.0 ? 4.0: ICA EDV 40-100 cm/s. 4. Greater than 70% stenosis to near occlusion= ICA PSV > 230 cm/s: ratio > 4.0: ICA EDV > 100 cm/s. 5. Near occlusion= ICA PSV velocities may be low or undetectable: variable ratio and ICA EDV. 6. Total occlusion=unable to detect flow. [facility], , 03/20/2024 1:25 PM
[2024-03-20 15:13] LABS: Chol/HDL Ratio 4.52 Ratio; LDL Cholesterol,Calculated 137.4 mg/dL (0.0-131.0)
--- NOTE | 2024-03-20 18:44 | P.DS ---
Providers Date of admission: 03/12/24 21:35 Attending physician: Shayla Isaacs Consults: 03/12/24 21:31 Consult Physician Urgent Consulting Provider: Ham Palacios Consult Reason/Comments: Acute renal failure Do you want consulting provider notified?: Yes 03/13/24 09:50 Consult Physician Stat Consulting Provider: Mia Ryan Consult Reason/Comments: temporary dialysis catheter Do you want consulting provider notified?: Yes 03/13/24 10:16 Consult Physician Routine Consulting Provider: Margret York Consult Reason/Comments: Chest pain Do you want consulting provider notified?: Yes 03/19/24 14:49 Consult Physician Urgent Consulting Provider: Peggy Avila Consult Reason/Comments: visual disturbances, blurry Do you want consulting provider notified?: Yes Primary care physician: Stated None Hospital Course: Final diagnosis Acute renal failure secondary to acute tubular necrosis versus glomerulonephritis with creatinine over 11 on admission and currently down. Urine positive for protein and blood. Uncontrolled hypertension mostly due to the renal dysfunction and better control Troponin leak secondary to the renal dysfunction Metabolic acidosis secondary to the acute kidney injury improved Anemia with underlying iron deficiency. Visual disturbances including blurry vision, possibly secondary to renal failure. CT brain was negative. Will need ophthalmology follow-up outpatient for further evaluation Continued ongoing nicotine use Leukocytosis, reactive GI prophylaxis DVT prophylaxis Full code Discharge disposition Patient is being transferred in a stable condition with guarded prognosis to [facility] and has been accepted by Dr. Samsno. Patient will need to establish with nephrology as well as primary care provider in the outpatient setting upon discharge. Patient is to continue with hemodialysis as scheduled. Patient does have a temporary dialysis catheter at this time. Being transferred for tertiary treatment to undergo kidney biopsy as no IR is available at this facility. Total time taken is greater than 35 minutes. Hospital course 43-year-old male came in with symptoms of generalized weakness not feeling well for last few weeks and patient found to have highly elevated creatinine of 11 and acute renal failure with BUN of around 97 patient was also having some chest pain secondary to uremia cardiology evaluated the patient. Patient with mild elevation of troponin 0.108 this is secondary to renal failure patient does have leukocytosis without any evidence of infection patient admits to taking Motrin few times a day. Patient had any gross hematuria or dysuria patient denied any fever chills patient denied any cough. 03/14/2024 Patient is evaluated in follow-up on the cardiac unit. Patient had a right femoral temporary dialysis catheter placed yesterday by vascular surgery. He has received 2 sessions of hemodialysis 1 last night and 1 today. Current creatinine is down to 8.18. Nephrology with concerns for glomerulonephritis as there is blood and protein in the urine. Patient is unable to have a kidney biopsy at this facility for 2 to 3 weeks. For this reason request for transfer to tertiary care was received. Patient has been denied at [facility] secondary to bed availability. Family does not want to go to [facility]. He has been accepted at [facility] under internal medicine Dr. Stiles and does state that he will have a bed within 2 to 5 days. He is currently a category B for transfer. Cardiology was consulted and has evaluated this patient echocardiogram completed reveals normal left ventricular size and systolic function. There is mild mitral and tricuspid regurgitation with no evidence of pulmonary hypertension. No reports of chest pain or shortness of breath at this time. Sodium of 135, potassium 3.4, BUN of 66 creatinine of 8.18, calcium of 8.1, magnesium 2.0. Liver enzymes are normal. Iron studies have been completed revealing an iron level of 14 TIBC of 228, percent saturation of 5.70 transferrin level of 163 and ferritin level of 604. 03/15/2024 Patient is seen in follow-up today with cardiology and nephrology following. Patient awaiting a bed assignment at [facility] with no bed available at this time and will follow-up daily with transfer team regarding this. Patient is maintained on hemodialysis undergoing dialysis currently. Hemoglobin noted to be 6.9 and will transfuse a unit of PRBC hopeful with dialysis. Will follow-up on repeat labs. Patient continues to report visual disturbances as he cannot point out colors of people's eyes and he is unable to read. Patient reports this has been ongoing over the last few days. Likely secondary to acute renal failure. 03/16/2024 Patient is evaluated in follow-up in the medical floor he is currently still pending a bed at [facility]. Did update the [facility] transfer center and again there is no bed at this time. [facility] is currently not accepting patients at this time due to a bad crisis. Patient had reported blurry vision yesterday he is not having any focal neurological deficits or peripheral vision loss. This could be attributed to his hypertension a brain CT was completed which reveals no acute subacute stroke mass or intracranial bleed. Additionally patient was having increasing shortness of breath today. A chest CT angiography was done which reveals no pulmonary embolism although reveals severe pulmonary edema with peripheral nodules and trace bilateral pleural effusions. Patient was given a one-time dose of IV Lasix 40 mg. Labs today reveal a white blood cell count of 8.1, hemoglobin 7.3, sodium level 130, BUN of 25 creatinine of 4.97. He is continued on IV Ferrlecit. 03/17/2024 Patient is seen and evaluated in follow-up with nephrology following closely. Patient maintained on hemodialysis currently awaiting transfer to [facility] for kidney biopsy. Patient will receive dialysis again tomorrow and will follow-up with repeat labs. Patient continues to report blurred vision and reported wanting to leave. Patient extremely frustrated about continuing to be hospitalized and had reported to nursing staff that he wanted dialysis catheter removed and wanted to go home. Patient also noted to be extremely anxious at times. Xanax was ordered as needed and will increase slightly. Discussed at length with patient about overall treatment plan and care along with his frustrated feelings and patient denies any suicidal ideation or thoughts of wanting to harm himself. Patient does not like being in hospitals. Patient is afebrile with no reports of chest pain or shortness of breath. Patient maintaining oxygen saturations above 95% on room air. Patient being started on Lasix therapy per nephrology and also medication adjustments to control blood pressure. 03/18/2024 Patient is seen in follow-up today continues to await a bed at [facility] for biopsy of the kidney. Patient being followed by nephrology maintained on IV diu resis along with continued hemodialysis and scheduled to receive dialysis today. Sodium trending down and 129. Creatinine above 8 at this time. Patient is afebrile with no reports of chest pain or shortness of breath. Patient not eating much and reports everything tastes like the medications and not much of an appetite. Patient is anxious as he remains hospitalized continuing to wait for a bed. Mother at the bedside and concerned as well as they were told it could take up to 5 days on transfer. 03/19/2024 Patient is seen in follow-up with nephrology following closely. Patient continues to elicit visual disturbances and most recent CAT scan was negative. Will consult neurology and appreciate input recommendations. Likely secondary to acute renal failure although will await further evaluation. Patient continues to await a bed assignment at [facility] in [place] for tertiary treatment to obtain kidney biopsy as we have no interventional radiology here available for minimum 3 weeks. Patient is continued on hemodialysis with nephrology following. 03/20/2024 Patient continuing to await a bed at [facility] for kidney biopsy I discussed further with patient and family and are agreeable to continue to pursue other hospitals as patient continues to be on a wait list with no bed available and has been waiting for over 8 days. Patient is maintained on hemodialysis and will receive today with nephrology following closely. Patient continues to report the visual disturbances and will need ophthalmology outpatient. Will provide resources to family. Patient is afebrile and denies chest pain or shortness of breath. Patient is tolerating diet although not much of an appetite and continues to report the food does not taste well since starting dialysis. Called [facility] and discussed with Dr. Smason internal medicine who accepted the patient for transfer for tertiary treatment for kidney biopsy and will have vascular and nephrology on consult. This case was discussed with Dr. Ryan as well who placed the temporary dialysis catheter. Patient is agreeable to proceed with this transfer. [facility] transfer team was contacted to make them aware we no longer need the transfer there. Bette was updated about the transfer. PHYSICAL EXAMINATION: GENERAL: The patient is alert and oriented x3, mildly anxious. Well developed, well nourished. Obese HEENT: Pupils are round and equally reacting to light. EOMI. No scleral icterus. No conjunctival pallor. Normocephalic, atraumatic. No pharyngeal erythema. No thyromegaly. CARDIOVASCULAR: S1 and S2 present. No murmurs, rubs, or gallops. PULMONARY: Chest is clear to auscultation, no wheezing or crackles. ABDOMEN: Soft, nontender, nondistended, normoactive bowel sounds. No palpable organomegaly. MUSCULOSKELETAL: No joint swelling or deformity. EXTREMITIES: No cyanosis, clubbing, or pedal edema. NEUROLOGICAL: Gross neurological examination did not reveal any focal deficits. No loss of peripheral vision. SKIN: No rashes. Please refer to medication reconciliation sheet for a list of medications. The impression and plan of care has been dictated by Keya Kelley, Nurse Anuj bloom as directed. Dr. Ferny MD I have performed a history and physical examination and medical decision making of this patient, discussed the same with the dictator, and agree with the dictat ors assessment and plan as written, documented as a scribe. Based on total visit time, I have performed more than 50% of this visit. What would we have there Patient Condition at Discharge: Fair Plan - Discharge Summary Discharge Rx Participant: Yes New Discharge Prescriptions: No Action Amoxic-Pot Clav 875-125Mg [Augmentin 875-125] 1 tab PO Q12HR hydrALAZINE HCL [Apresoline] 25 mg PO TID Discharge Medication List Amoxic-Pot Clav 875-125Mg [Augmentin 875-125] 1 tab PO Q12HR 03/13/24 [History] hydrALAZINE HCL [Apresoline] 25 mg PO TID 03/13/24 [History] Follow up Appointment(s)/Referral(s): None,Stated [Primary Care Provider] - 1-2 days Activity/Diet/Wound Care/Special Instructions: Patient will transfer to [facility] and has been accepted by Dr. Samson on 03/20/2024 Discharge Disposition: OTHER INSTITUTION NOT DEFINED
--- NOTE | 2024-03-20 20:00 | P.PN ---
Subjective Patient is seen for follow-up for acute kidney injury. Awaiting bed at [facility]. No significant complaints today except for mild lightheadedness yesterday while going to the bathroom. No complaints of shortness of breath. Status post hemodialysis on 03/18/2024 Objective - Vital Signs Vital signs: Vital Signs Temp 97 F L 03/20/24 19:53 Pulse 79 03/20/24 19:53 Resp 16 03/20/24 19:53 BP 151/91 03/20/24 19:53 Pulse Ox 98 03/20/24 19:53 FiO2 Intake & Output 03/20/24 03/20/24 03/21/24 06:59 18:59 06:59 Intake Total 20 1020 400 Output Total 2400 Balance 20 1020 -2000 Weight 71.5 kg Intake: IV 20 Invasive Line 2 10 Invasive Line 4 10 Oral 1020 Hemodialysis 400 Output: Hemodialysis 1400 Hemodialysis Net Amount 1000 Other: Voiding Method Toilet # Voids 2 1 - Exam Patient is awake, comfortable, alert oriented x 3 Examination of the heart S1 and S2 Examination of the lungs bilateral breath sounds are heard Abdomen is soft nontender Examination of lower extremities shows no significant edema [employer] exam grossly intact - Labs CBC & Chem 7: 03/20/24 06:49 03/20/24 06:49 Labs: Abnormal Lab Results - Last 24 Hours (Table) 03/20/24 03/20/24 03/20/24 Range/Units 06:49 06:49 06:49 RBC 3.13 L (4.30-5.90) m/uL Hgb 9.4 L (13.0-17.5) gm/dL Hct 28.6 L (39.0-53.0) % Sodium 133 L (137-145) mmol/L Chloride 94 L (98-107) mmol/L BUN 32 H (9-20) mg/dL Creatinine 7.64 H* (0.66-1.25) mg/dL Glucose 147 H (74-99) mg/dL Cholesterol 207.00 H (0.00-200.00) mg/dL LDL Cholesterol, Calc 137.4 H (0.0-131.0) mg/dL Assessment and Plan Assessment: 1. Acute kidney injury secondary to ATN versus acute glomerulonephritis. Creatinine over 11 on admission. Started on hemodialysis March 13, 2024. Unknown baseline renal function. No hydronephrosis noted on kidney ultrasound. Urine positive for protein and blood. Serologies negative. Urine eosinophils negative. UPC 4.34 g. 2. Metabolic acidosis secondary to acute kidney injury. Improved with dialysis. 3. Anemia due to acute illness. Iron deficiency noted. Status post IV iron. Status post IV DDAVP and blood transfusion. Hemoglobin improved. On Aranesp. 4. Benign hypertension. Partially due to severe renal failure. 5. Hypokalemia from poor intake and low potassium dialysate. Replaced. Better. 6. Pulmonary nodules noted on CTA. Questionable pulmonary edema. 7. Hyponatremia secondary to acute kidney injury. Improved with hemodialysis. Plan: Awaiting transfer to tertiary [facility] for kidney biopsy as interventional was radiologist is not available at our facility for another 3 weeks. Hemodialysis in a.m. last dialysis was on 03/18/2024
[2024-03-20 20:28] LABS: Glucose,Whole Blood 142 mg/dL (70-110)
[2024-03-20 23:16] VITALS: BP 137/71; PULSE 71; RESP 19; TEMP 97.9
== END 2024-03-20 23:49 | disposition short-term general hospital (02) | DRG 683 ==
LOC: EC 18:53 → 3SCARD 21:35
PROVIDERS: ADMIT Hospitalist; ATTEND Hospitalist
PROC: 5A1D70Z Performance of Urinary Filtration, Intermittent, Less than 6 Hours Per Day (ICD-10-PCS; principal; 2024-03-13)
PROC: 06HM33Z Insertion of Infusion Device into Right Femoral Vein, Percutaneous Approach (ICD-10-PCS; 2024-03-13)
PROC: B54BZZA Ultrasonography of Right Lower Extremity Veins, Guidance (ICD-10-PCS; 2024-03-13)
PROC: 30233N1 Transfusion of Nonautologous Red Blood Cells into Peripheral Vein, Percutaneous Approach (ICD-10-PCS; 2024-03-15)
DX: N17.0 Acute kidney failure with tubular necrosis (principal); E87.1 Hypo-osmolality and hyponatremia; E87.20 Acidosis, unspecified; J81.1 Chronic pulmonary edema; I16.0 Hypertensive urgency; D63.1 Anemia in chronic kidney disease; J90 Pleural effusion, not elsewhere classified; N18.9 Chronic kidney disease, unspecified; I12.9 Hypertensive chronic kidney disease with stage 1 through stage 4 chronic kidney disease, or unspecified chronic kidney disease; I08.3 Combined rheumatic disorders of mitral, aortic and tricuspid valves; D50.9 Iron deficiency anemia, unspecified; Z11.52 Encounter for screening for COVID-19; F17.210 Nicotine dependence, cigarettes, uncomplicated; E87.6 Hypokalemia; R31.0 Gross hematuria; Z79.899 Other long term (current) drug therapy; H53.9 Unspecified visual disturbance; R79.89 Other specified abnormal findings of blood chemistry
CPT/HCPCS: 36415; 51798; 70450; 71046; 71275; 76770; 80048; 80053; 80061; 80074; 81001; 82550; 82570; 82728; 83036; 83516; 83540; 83550; 83735; 84156; 84165; 84484; 85025; 85610; 85730; 86038; 86160; 86162; 86225; 86255; 86334; 86850; 86900; 86901; 86920; 87205; 87340; 87636; 90935; 93005; 93306; 93880; 94640; 94760; 96361; 96374; 96376; 99285; 99406

== ENCOUNTER 2024-04-05 23:10 | Emergency (ER) | payer MEDICAID ==
[2024-04-05 23:16] VITALS: TEMP 97.4
[2024-04-06 01:21] LABS: Basophils # (A) 0.1 k/uL (0-0.2); Basophils % (A) 1 %; Eosinophils # (A) 0.5 k/uL (0-0.7); Eosinophils % (A) 5 %; Lymphocytes # (A) 2.4 k/uL (1.0-4.8); Lymphocytes % (A) 24 %; MCH 31.4 pg (25.0-35.0); MCHC 34.2 g/dL (31.0-37.0); MCV 91.8 fL (80.0-100.0); Mean Platelet Volume 7.2; Monocytes # (A) 0.7 k/uL (0-1.0); Monocytes % (A) 7 %; Neutrophils # (A) 6.4 k/uL (1.3-7.7); Neutrophils % (A) 63 %; Platelet Count 415 k/uL (150-450); RBC 1.58 m/uL (4.30-5.90); RDW 14.3 % (11.5-15.5); WBC 10.2 k/uL (3.8-10.6)
--- NOTE | 2024-04-06 01:37 | XR ---
EXAM: XR Chest, 2 Views CLINICAL HISTORY: ITS.REASON XR Reason: near syncope TECHNIQUE: Frontal and lateral views of the chest. COMPARISON: Chest radiograph on 03/12/2024 FINDINGS: Hardware: Right-sided central venous catheter terminates near the cavoatrial junction. Lungs/pleura: Normal. No focal consolidation. No pleural effusion or pneumothorax. Heart/mediastinum: Normal. No cardiomegaly. Soft tissues: Unremarkable. Bones: No acute fracture. Upper abdomen: Normal. IMPRESSION: 1. Right-sided central venous catheter terminates near the cavoatrial junction. 2. No acute disease identified.
--- NOTE | 2024-04-06 01:56 | ED ---
General Adult HPI - General Chief complaint: Syncope Stated complaint: Syncope Time Seen by Provider: 04/06/24 00:02 Source: patient Mode of arrival: EMS Limitations: no limitations - History of Present Illness Initial comments: This patient is a 43-year-old man who presents to have evaluation for episode in which she was feeling very lightheaded and like he would pass out. Was when he had gotten up. Patient did admit to taking medications that could have affected him. He did take Xanax and also a THC edible. The patient denies chest pain or dyspnea. He is recent dialysis patient and did have dialysis. Onset/Timin -: hour(s) Severity scale (1-10): 0 Consistency: intermittent Improves with: rest Worsens with: movement Associated Symptoms: other (Lightheaded) - Related Data Home Medications Medication Instructions Recorded Confirmed Amoxic-Pot Clav 875-125Mg 1 tab PO Q12HR 03/13/24 03/13/24 [Augmentin 875-125] hydrALAZINE HCL [Apresoline] 25 mg PO TID 03/13/24 03/13/24 Allergies Allergy/AdvReac Type Severity Reaction Status Date / Time No Known Allergies Allergy Verified 03/13/24 09:33 Review of Systems ROS Statement: Those systems with pertinent positive or pertinent negative responses have been documented in the HPI. ROS Other: All systems not noted in ROS Statement are negative. Constitutional: Denies: fever, chills Eyes: Denies: vision change Respiratory: Denies: cough, dyspnea, wheezes Cardiovascular: Reports: syncope (Near syncope). Denies: chest pain, palpitations, edema Gastrointestinal: Denies: abdominal pain, nausea, vomiting Musculoskeletal: Denies: back pain Skin: Denies: rash Neurological: Denies: headache, weakness Past Medical History Past Medical History: Hypertension Additional Past Medical History / Comment(s): renal disease History of Any Multi-Drug Resistant Organisms: None Reported Past Surgical History: No Surgical Hx Reported Past Psychological History: No Psychological Hx Reported Smoking Status: Former smoker Past Alcohol Use History: None Reported Past Drug Use History: Marijuana General Exam General appearance: alert, in no apparent distress Head exam: Present: atraumatic, normocephalic Eye exam: Present: normal appearance. Absent: scleral icterus, conjunctival injection ENT exam: Present: normal oropharynx Neck exam: Present: normal inspection Respiratory exam: Present: normal lung sounds bilaterally. Absent: respiratory distress, wheezes, rales, rhonchi, stridor, accessory muscle use Cardiovascular Exam: Present: regular rate, normal rhythm, normal heart sounds. Absent: systolic murmur, diastolic murmur, rubs, gallop GI/Abdominal exam: Present: soft. Absent: distended, tenderness, guarding, rebound, rigid, mass Extremities exam: Present: normal inspection, normal capillary refill. Absent: pedal edema, calf tenderness Back exam: Present: normal inspection Neurological exam: Present: alert, oriented X3. Absent: motor sensory deficit Skin exam: Present: warm, dry, intact, normal color. Absent: rash Course Vital Signs 04/05/24 04/06/24 04/06/24 23:12 01:14 02:18 Temperature 97.4 F L Pulse Rate 63 61 Respiratory 18 18 18 Rate Blood Pressure 138/88 100/69 131/90 O2 Sat by Pulse 100 98 Oximetry 04/06/24 04:34 Temperature Pulse Rate 68 Respiratory 17 Rate Blood Pressure 118/82 O2 Sat by Pulse 98 Oximetry EKG Findings - EKG Results: EKG: interpreted by ERMD, sinus rhythm (Rate 61 bpm), normal axis - Blocks, [place], Hypertrophy, ST Abn: Chamber hypertrophy or enlargement: left ventricular hypertrophy or enlargement (LVE) Medical Decision Making - Medical Decision Making The patient had chest x-ray that I interpreted as negative for acute infiltrate, pneumothorax, congestive heart failure Was pt. sent in by a medical professional or institution ([facility], ODD PIECE CHECKER, urgent care, hospital, or group home...) When possible be specific @ -[No] Did you speak to anyone other than the patient for history (EMS, parent, family, police, friend...)? What history was obtained from this source @ -[No] Did you review nursing and triage notes (agree or disagree)? Why? @ -[I reviewed and agree with nursing and triage notes] Were old charts reviewed (outside hosp., previous admission, EMS record, old EKG, old radiological studies, urgent care reports/EKG's, group home records)? Report findings @ -[No old charts were reviewed] Differential Diagnosis (chest pain, altered mental status, abdominal pain women, abdominal pain men, vaginal bleeding, weakness, fever, dyspnea, syncope, headache, dizziness, GI bleed, back pain, seizure, CVA, palpatations, mental health, musculoskeletal)? @ -[Differential Syncope: Valvular disease, hypertrophic cardiomyopathy, pulmonary embolism, tamponade, tachycardia, bradycardia, MO, hypovolemia, hemorrhage, dissection, anemia, intracranial hemorrhage, seizure, hypoglycemia, carbon monoxide poisoning, this is not meant to be an all-inclusive list. EKG interpreted by me (3pts min.). @ -[I interpreted as above] X-rays interpreted by me (1pt min.). @ -[I interpreted as above CT interpreted by me (1pt min.). @ -[None done] U/S interpreted by me (1pt. min.). @ -[None done] What testing was considered but not performed or refused? (CT, X-rays, U/S, labs)? Why? @ -[None] What meds were considered but not given or refused? Why? @ -[None] Did you discuss the management of the patient with other professionals (professionals i.e. , PA, ODD PIECE CHECKER, lab, RT, psych nurse, psych social worker, canceling and cutting control clerk, teacher, chief business officer, wrapper caser)? Give summary @ -[No] Was smoking cessation discussed for >3mins.? @ -[No] Was critical care preformed (if so, how long)? @ -[No] Were there social determinants of health that impacted care today? How? (Homelessness, low income, unemployed, alcoholism, drug addiction, transportation, low edu. Level, literacy, decrease access to med. care, longterm, rehab)? @ -[No] Was there de-escalation of care discussed even if they declined (Discuss DNR or withdrawal of care, Hospice)? DNR status @ -[No] What co-morbidities impacted this encounter? (DM, HTN, Smoking, COPD, CAD, Cancer, CVA, ARF, Chemo, Hep., AIDS, mental health diagnosis, sleep apnea, morbid obesity)? @ -[None] Was patient admitted / discharged? Hospital course, mention meds given and route, prescriptions, significant lab abnormalities, going to OR and other pertinent info. @ -[Patient is 43-year-old man with lightheadedness and near syncopal episode he had used THC gummy and Xanax. The patient's labs were concerning as he did have initial hemoglobin value that was very low but repeat testing reveals that this appears to have been factitious finding. The patient feeling better following course in emergency and stable to continue as outpatient. Undiagnosed new problem with uncertain prognosis? @ -[No] Drug Therapy requiring intensive monitoring for toxicity (Heparin, Nitro, Insulin, Cardizem)? @ -[No] Were any procedures done? @ -[No] Diagnosis/symptom? @ -[Orthostatic hypotension Acute, or Chronic, or Acute on Chronic? @ -[Acute Uncomplicated (without systemic symptoms) or Complicated (systemic symptoms)? @ -[default] Side effects of treatment? @ -[No] Exacerbation, Progression, or Severe Exacerbation? @ -[No] Poses a threat to life or bodily function? How? (Chest pain, USA, MO, pneumonia, PE, COPD, DKA, ARF, appy, cholecystitis, CVA, Diverticulitis, Homicidal, Suicidal, threat to staff... and all critical care pts) @ -[No] All treatments are based on ideal body weight as in ED triage - Lab Data Result diagrams: 04/06/24 03:20 04/05/24 23:17 Lab Results 04/05/24 04/05/24 04/05/24 Range/Units 23:17 23:17 23:17 WBC 10.2 (3.8-10.6) k/uL RBC 1.58 L (4.30-5.90) m/uL Hgb 4.9 L* D (13.0-17.5) gm/dL Hct 14.5 L* (39.0-53.0) % MCV 91.8 (80.0-100.0) fL MCH 31.4 (25.0-35.0) pg MCHC 34.2 (31.0-37.0) g/dL RDW 14.3 (11.5-15.5) % Plt Count 415 (150-450) k/uL MPV 7.2 Neutrophils % 63 % Lymphocytes % 24 % Monocytes % 7 % Eosinophils % 5 % Basophils % 1 % Neutrophils # 6.4 (1.3-7.7) k/uL Lymphocytes # 2.4 (1.0-4.8) k/uL Monocytes # 0.7 (0-1.0) k/uL Eosinophils # 0.5 (0-0.7) k/uL Basophils # 0.1 (0-0.2) k/uL Sodium 130 L (137-145) mmol/L Potassium 3.5 (3.5-5.1) mmol/L Chloride 89 L (98-107) mmol/L Carbon Dioxide 28 (22-30) mmol/L Anion Gap 13 mmol/L BUN 37 H (9-20) mg/dL Creatinine 6.63 H (0.66-1.25) mg/dL Est GFR (CKD-EPI)AfAm 11 (>60 ml/min/1.73 sqM) Est GFR (CKD-EPI)NonAf 9 (>60 ml/min/1.73 sqM) Glucose 118 H (74-99) mg/dL Plasma Lactic Acid King 2.0 (0.7-2.0) mmol/L Calcium 9.2 (8.4-10.2) mg/dL Magnesium 2.7 H (1.6-2.3) mg/dL Total Bilirubin 0.4 (0.2-1.3) mg/dL AST 27 (17-59) U/L ALT 26 (4-49) U/L Alkaline Phosphatase 78 (38-126) U/L Troponin I (0.000-0.034) ng/mL Total Protein 6.5 (6.3-8.2) g/dL Albumin 4.0 (3.5-5.0) g/dL Blood Type Blood Type Recheck Bld Type Recheck Status Antibody Screen Spec Expiration Date 04/05/24 04/06/24 04/06/24 Range/Units 23:17 03:15 03:20 WBC 6.3 (3.8-10.6) k/uL RBC 2.76 L (4.30-5.90) m/uL Hgb 8.5 L D (13.0-17.5) gm/dL Hct 25.2 L (39.0-53.0) % MCV 91.3 (80.0-100.0) fL MCH 30.8 (25.0-35.0) pg MCHC 33.7 (31.0-37.0) g/dL RDW 14.2 (11.5-15.5) % Plt Count 274 (150-450) k/uL MPV 6.7 Neutrophils % 65 % Lymphocytes % 20 % Monocytes % 6 % Eosinophils % 5 % Basophils % 1 % Neutrophils # 4.1 (1.3-7.7) k/uL Lymphocytes # 1.3 (1.0-4.8) k/uL Monocytes # 0.4 (0-1.0) k/uL Eosinophils # 0.3 (0-0.7) k/uL Basophils # 0.1 (0-0.2) k/uL Sodium (137-145) mmol/L Potassium (3.5-5.1) mmol/L Chloride (98-107) mmol/L Carbon Dioxide (22-30) mmol/L Anion Gap mmol/L BUN (9-20) mg/dL Creatinine (0.66-1.25) mg/dL Est GFR (CKD-EPI)AfAm (>60 ml/min/1.73 sqM) Est GFR (CKD-EPI)NonAf (>60 ml/min/1.73 sqM) Glucose (74-99) mg/dL Plasma Lactic Acid King (0.7-2.0) mmol/L Calcium (8.4-10.2) mg/dL Magnesium (1.6-2.3) mg/dL Total Bilirubin (0.2-1.3) mg/dL AST (17-59) U/L ALT (4-49) U/L Alkaline Phosphatase (38-126) U/L Troponin I 0.012 (0.000-0.034) ng/mL Total Protein (6.3-8.2) g/dL Albumin (3.5-5.0) g/dL Blood Type A Positive Blood Type Recheck A Pos Bld Type Recheck Status No Antibody Screen NEGATIVE Spec Expiration Date 04/09/20242314 Disposition Clinical Impression: Orthostatic hypotension Disposition: HOME SELF-CARE Condition: Good Instructions (If sedation given, give patient instructions): Hypotension (ED) Is patient prescribed a controlled substance at d/c from ED?: No Referrals: None,Stated [Primary Care Provider] - 1-2 days
[2024-04-06 01:59] LABS: HGB 4.9 gm/dL (13.0-17.5)
[2024-04-06 02:00] LABS: HCT 14.5 % (39.0-53.0)
[2024-04-06 03:03] LABS: ALT 26 U/L (4-49); AST 27 U/L (17-59); African American GFR (CKD) 11 (>60 ml/min/1.73 sqM); Alkaline Phosphatase 78 U/L (38-126); Anion Gap 13 mmol/L; Blood Urea Nitrogen 37 mg/dL (9-20); Calcium 9.2 mg/dL (8.4-10.2); Carbon Dioxide 28 mmol/L (22-30); Chloride 89 mmol/L (98-107); Glucose 118 mg/dL (74-99); Magnesium 2.7 mg/dL (1.6-2.3); Non-African American GFR(CKD) 9 (>60 ml/min/1.73 sqM); Potassium 3.5 mmol/L (3.5-5.1); Sodium 130 mmol/L (137-145); Total Bilirubin 0.4 mg/dL (0.2-1.3); Total Protein 6.5 g/dL (6.3-8.2)
[2024-04-06 03:38] LABS: Basophils # (A) 0.1 k/uL (0-0.2); Basophils % (A) 1 %; Eosinophils # (A) 0.3 k/uL (0-0.7); Eosinophils % (A) 5 %; HCT 25.2 % (39.0-53.0); Lymphocytes # (A) 1.3 k/uL (1.0-4.8); Lymphocytes % (A) 20 %; MCH 30.8 pg (25.0-35.0); MCHC 33.7 g/dL (31.0-37.0); MCV 91.3 fL (80.0-100.0); Mean Platelet Volume 6.7; Monocytes # (A) 0.4 k/uL (0-1.0); Monocytes % (A) 6 %; Neutrophils # (A) 4.1 k/uL (1.3-7.7); Neutrophils % (A) 65 %; Platelet Count 274 k/uL (150-450); RBC 2.76 m/uL (4.30-5.90); RDW 14.2 % (11.5-15.5); WBC 6.3 k/uL (3.8-10.6)
[2024-04-06 03:47] LABS: HGB 8.5 gm/dL (13.0-17.5)
[2024-04-06 04:35] VITALS: BP 118/82; PULSE 68; RESP 17
== END 2024-04-06 04:38 | disposition home or self-care (01) ==
LOC: EC 23:10
DX: I95.1 Orthostatic hypotension (principal); Z87.891 Personal history of nicotine dependence
CPT/HCPCS: 36415; 71046; 80053; 83605; 83735; 84484; 85025; 86850; 86900; 86901; 93005; 99284

== ENCOUNTER 2024-05-21 08:21 | Day surgery (SDC) | payer MEDICAID ==
[2024-05-20 10:02] VITALS: BMI 26.1
[~2024-05-21 08:21] MED LIST: fentaNYL (PF) 50 MCG/ML 2 ML AMP IV PRN
[2024-05-21] MEDS: IV FLUID CONTINUATION 1,000 ML IV ONE (08:51)
[2024-05-21] MEDS: SODIUM CHLORIDE 0.9% 500 ML 500 ML IV ONE (08:51)
[2024-05-21] MEDS: LACTATED RINGERS 1,000 ML IV SCH (09:15)
[2024-05-21] MEDS: DEXAMETHASONE SOD PHOSPHATE 4 MG/ML 1 ML VIAL IV ONE (09:15)
[2024-05-21] MEDS: ONDANSETRON 4 MG/2 ML VIAL IVP ONE (09:15)
[2024-05-21 09:27] LABS: African American GFR (CKD) 10 (>60 ml/min/1.73 sqM); Anion Gap 13 mmol/L; Blood Urea Nitrogen 33 mg/dL (9-20); Calcium 9.7 mg/dL (8.4-10.2); Carbon Dioxide 31 mmol/L (22-30); Chloride 89 mmol/L (98-107); Glucose 84 mg/dL (74-99); Non-African American GFR(CKD) 9 (>60 ml/min/1.73 sqM); Potassium 3.9 mmol/L (3.5-5.1); Sodium 133 mmol/L (137-145)
[2024-05-21 09:31] VITALS: TEMP 97.6
[2024-05-21] MEDS: MIDAZOLAM 2 MG/2 ML VIAL IV ONE (09:50)
[2024-05-21] MEDS ORDERED: fentaNYL (PF) 50 MCG/ML 2 ML AMP ONE (09:55)
[2024-05-21] MEDS ORDERED: DEXAMETHASONE SOD PHOSPHATE 4 MG/ML 1 ML VIAL ONE (09:55)
[2024-05-21] MEDS ORDERED: KETAMINE HCL IN 0.9 % NACL 50 MG/5 ML SYRINGE ONE (09:55)
[2024-05-21] MEDS ORDERED: MIDAZOLAM 2 MG/2 ML VIAL ONE (09:55)
[2024-05-21] MEDS ORDERED: PROPOFOL 10 MG/ML 20 ML VIAL IV ONE (09:55)
[2024-05-21] MEDS ORDERED: ROPIVACAINE 5 MG/ML 30 ML VIAL ONE (09:55)
--- NOTE | 2024-05-21 10:00 | P.HPIHPCON ---
History of Present Illness H&P Date: 05/21/24 Patient is a 43-year-old with end-stage renal disease getting dialysis via a tunneled chest wall wall catheter on workup and evaluation was found to have adequate size cephalic vein in the left forearm therefore plans for a radiocephalic fistula were discussed. Consent for Procedure: I have explained the operation/procedure to the patient, including the risks, benefits, side effects, alternative therapies (including not receiving the proposed treatment or service), the likelihood of the patient achieving his/her goals, and potential recuperation problems for the procedure/sedation/analgesia, as well as any blood products, if indicated. I also explained to the patient the risks, benefits and side effects of the alternatives, as well as the risks related to not receiving the proposed procedure, care, treatment, or services. Past Medical History Past Medical History: Dialysis, Hyperlipidemia, Hypertension, Renal Disease Additional Past Medical History / Comment(s): renal disease History of Any Multi-Drug Resistant Organisms: None Reported Past Surgical History: No Surgical Hx Reported Additional Past Surgical History / Comment(s): kidney biopsy Past Anesthesia/Blood Transfusion Reactions: No Reported Reaction Smoking Status: Former smoker - Past Family History Father Family Medical History: No Reported History Mother Family Medical History: No Reported History Medications and Allergies Home Medications Medication Instructions Recorded Confirmed Type hydrALAZINE HCL [Apresoline] 25 mg PO BID 03/13/24 05/21/24 History ALPRAZolam [Xanax] 0.25 mg PO HS PRN 05/20/24 05/21/24 History Cholecalciferol (Vitamin D3) 50 mcg PO QAM 05/20/24 05/21/24 History [Vitamin D3 (50 Mcg = 2000 Iu)] Losartan [Cozaar] 50 mg PO QAM 05/20/24 05/21/24 History Metoprolol Tartrate 12.5 mg PO BID 05/20/24 05/21/24 History Rosuvastatin [Crestor] 5 mg PO HS 05/20/24 05/21/24 History Sevelamer Carbonate 800 mg PO TID-W/MEALS 05/20/24 05/21/24 History Vit B Comp No.3/Folic/C/Biotin 1 each PO QAM 05/20/24 05/21/24 History [Denisse-Myah Rx Tablet] amLODIPine 10 mg PO QAM 05/20/24 05/21/24 History Allergies Allergy/AdvReac Type Severity Reaction Status Date / Time No Known Allergies Allergy Verified 05/21/24 08:52 Surgical - Exam Vital Signs Temp Pulse Resp BP Pulse Ox 97.6 F 62 16 122/78 99 05/21/24 09:27 05/21/24 09:27 05/21/24 09:27 05/21/24 09:27 05/21/24 09:27 General is a pleasant cooperative male in no acute distress. Right chest wall catheter clean and dry. No irritation or redness. Palpable radial pulse in the left. Results - Labs 05/21/24 09:07 Abnormal Lab Results - Last 24 Hours (Table) 05/21/24 Range/Units 09:07 Sodium 133 L (137-145) mmol/L Chloride 89 L (98-107) mmol/L Carbon Dioxide 31 H (22-30) mmol/L BUN 33 H (9-20) mg/dL Creatinine 6.92 H (0.66-1.25) mg/dL Diabetes panel 05/21/24 Range/Units 09:07 Sodium 133 L (137-145) mmol/L Potassium 3.9 (3.5-5.1) mmol/L Chloride 89 L (98-107) mmol/L Carbon Dioxide 31 H (22-30) mmol/L BUN 33 H (9-20) mg/dL Creatinine 6.92 H (0.66-1.25) mg/dL Glucose 84 (74-99) mg/dL Calcium 9.7 (8.4-10.2) mg/dL Calcium panel 05/21/24 Range/Units 09:07 Calcium 9.7 (8.4-10.2) mg/dL Pituitary panel 05/21/24 Range/Units 09:07 Sodium 133 L (137-145) mmol/L Potassium 3.9 (3.5-5.1) mmol/L Chloride 89 L (98-107) mmol/L Carbon Dioxide 31 H (22-30) mmol/L BUN 33 H (9-20) mg/dL Creatinine 6.92 H (0.66-1.25) mg/dL Glucose 84 (74-99) mg/dL Calcium 9.7 (8.4-10.2) mg/dL Adrenal panel 05/21/24 Range/Units 09:07 Sodium 133 L (137-145) mmol/L Potassium 3.9 (3.5-5.1) mmol/L Chloride 89 L (98-107) mmol/L Carbon Dioxide 31 H (22-30) mmol/L BUN 33 H (9-20) mg/dL Creatinine 6.92 H (0.66-1.25) mg/dL Glucose 84 (74-99) mg/dL Calcium 9.7 (8.4-10.2) mg/dL Assessment and Plan Assessment: End-stage renal disease on dialysis Plan: Plan today for left upper extremity radiocephalic fistula creation. Risk and benefits discussed. He seemed understands and is willing to proceed.
--- NOTE | 2024-05-21 10:15 | P.ANPRN ---
Procedure Note - Anesthesia - Nerve Block Performed Left Axillary Single Date of Procedure: 05/21/24 Procedure Start Time: 09:45 Procedure Stop Time: :55 Indication: Requested by Surgeon Sedation Type: Sedate with meaningful contact maintained Preparation: Sterile Prep Position: Supine Catheter: None Needle Types: Facet Needle Gauge: 21 Ultrasound used to visualize needle placement: Yes Ultrasound used to observe medication spread: Yes Injectate: 0.5% Ropivacaine (see comment for volume) (20 mls) Blood Aspirated: No Pain Paresthesia on Injection Noted: No Resistance on Injection: Normal Image Stored and Saved: Yes Events: Uneventful and Well Tolerated
[2024-05-21] MEDS: BUPIVACAINE (PF) 0.5% 30 ML VIAL SQ ONE (10:33)
[2024-05-21] MEDS: LIDOCAINE 1% INJ 10MG/ML (20 ML MDV) SQ ONE (10:33)
[2024-05-21] MEDS: ceFAZolin 2,000 MG in SODIUM CHLORIDE 0.9% 500 ML IRRIGATION ONE (10:34)
[2024-05-21] MEDS: HEPARIN SODIUM,PORCINE (1 ML) 2,000 UNIT in SODIUM CHLORIDE 0.9% 500 ML 500 ML IRRIGATION ONE (10:34)
--- NOTE | 2024-05-21 11:20 | P.OP ---
Date of Procedure: 05/21/24 Description of Procedure: Preoperative diagnosis: End-stage renal disease Postoperative diagnosis: Same Procedure: Creation of left upper extremity radiocephalic fistula Surgeon: Mia Ryan D.O. Anesthesia: Monitored sedation with regional block Aligner Typewriter: Kay Renee EBL: 5 cc IV fluids: See records Urine output: Not measured Drains: None Complications: None immediately apparent stable to recovery Condition: Stable to recovery Operative indication and findings: The patient is a 43-year-old with end-stage renal disease who presents for fistula creation. Preoperative imaging showed appropriate size vessels for a radiocephalic fistula. Risks and benefits were discussed. The patient seemingly understood and was willing to proceed Procedure in detail: The patient was taken the operative suite and placed in supine position. The upper extremity was prepped and draped in usual sterile fashion. A preprocedure timeout was performed, all parties are in agreement. The radial pulse was felt, the ultrasound was previously utilized to identify the cephalic vein. The skin was anesthetized 1% lidocaine plain and a longitudinal incision was made between the radial pulse in the cephalic vein. It was carried down through subcutaneous tissues with electrocautery. The radial artery was identified. It was dissected free proximally and distally and encircled with vessel loop. Attention was then turned towards the vein. The subcutaneous tissues were bluntly dissected to the level of the vein. The vein was Cleared circumferentially and at the most distal portion it was suture ligated with 4-0 silk. The transected portion of the vein was then serially dilated. An arteriotomy was performed after control of the vessel. 6-0 silk stay sutures were placed. An anastomosis created using 7-0 Prolene. Prior to completion of the anastomosis the artery was allowed to backbleed and forward bleed, the vein was flushed. The anastomosis was completed. Hemostasis appeared adequate. Blood flow was pulsatile distal to the anastomosis and confirmed with Doppler signal. The area was copiously irrigated. The fistula once more inspected for any further branches to ligate. The wound was then closed. The deep dermal tissues were reapproximated with interrupted sutures of 3-0 Vicryl. The skin was reapproximated with running 4-0 Monocryl. Skin glue was placed. The patient was transferred to recovery in stable condition having tolerated the procedure well
[2024-05-21 11:39] VITALS: BP 143/87; PULSE 66; RESP 16
== END 2024-05-21 12:28 | disposition home or self-care (01) ==
LOC: OR 08:21
PROVIDERS: ATTEND Surgery
DX: I12.0 Hypertensive chronic kidney disease with stage 5 chronic kidney disease or end stage renal disease (principal); N18.6 End stage renal disease; E78.5 Hyperlipidemia, unspecified; Z87.891 Personal history of nicotine dependence; Z79.899 Other long term (current) drug therapy
CPT/HCPCS: 36821; 64417; 80048; J2250; J1644; J1100; J0690 ×2; J2405; J2003; J3010; J2795; J2704; J0665

== ENCOUNTER 2024-07-04 09:36 | Day surgery (SDC) | payer MEDICAID ==
[2024-07-03 09:03] VITALS: BMI 27.3
[~2024-07-04 09:36] MED LIST changes: +HYDROmorphone 0.5 MG/0.5 ML SYRINGE IVP PRN; +LACTATED RINGERS 1,000 ML IV SCH; +LIDOCAINE 1% (10MG/ML) FOR IV START INTRADERMA PRN; +droPERidol 2.5 MG/ML VIAL IVP ONE; -fentaNYL (PF) 50 MCG/ML 2 ML AMP IV PRN
[2024-07-04 09:53] VITALS: RESP 16; TEMP 96.8
[2024-07-04] MEDS: IV FLUID CONTINUATION 1,000 ML IV ONE ×3 (10:15→11:23)
[2024-07-04] MEDS: SODIUM CHLORIDE 0.9% 1,000 ML IV SCH (10:15)
[2024-07-04] MEDS: ONDANSETRON 4 MG/2 ML VIAL IVP ONE (10:26)
[2024-07-04] MEDS: DEXAMETHASONE SOD PHOSPHATE 4 MG/ML 1 ML VIAL IV ONE (10:26)
[2024-07-04] MEDS: MIDAZOLAM 2 MG/2 ML VIAL IV ONE (10:54)
[2024-07-04] MEDS ORDERED: GLYCOPYRROLATE 0.2 MG/ML 2 ML VIAL ONE (11:20)
[2024-07-04] MEDS ORDERED: KETAMINE HCL IN 0.9 % NACL 50 MG/5 ML SYRINGE ONE (11:20)
[2024-07-04] MEDS ORDERED: WATER FOR INJECTION, STERILE 10 ML VIAL IV ONE (11:20)
[2024-07-04] MEDS ORDERED: HEPARIN SODIUM,PORCINE 5,000 UNIT/ML 1 ML VIAL ONE (11:20)
[2024-07-04] MEDS ORDERED: ROPIVACAINE 5 MG/ML 30 ML VIAL ONE (11:20)
[2024-07-04] MEDS ORDERED: PROPOFOL 10 MG/ML 20 ML VIAL IV ONE (11:20)
[2024-07-04] MEDS ORDERED: ePHEDrine 50 MG/ML 1 ML VIAL ONE (11:20)
[2024-07-04] MEDS ORDERED: PHENYLEPHRINE-0.9% NACL SYG 1,000 MCG/10 ML SYRINGE ONE (11:20)
[2024-07-04] MEDS ORDERED: fentaNYL (PF) 50 MCG/ML 2 ML AMP ONE (11:20)
[2024-07-04] MEDS ORDERED: MIDAZOLAM 2 MG/2 ML VIAL ONE (11:20)
[2024-07-04] MEDS ORDERED: DEXAMETHASONE SOD PHOSPHATE 4 MG/ML 1 ML VIAL ONE (11:20)
[2024-07-04] MEDS: SODIUM CHLORIDE 0.9% 500 ML 500 ML with HEPARIN SODIUM,PORCINE (1 ML) 5,000 UNIT IV ONE (11:25)
[2024-07-04] MEDS: ceFAZolin 2 GM in SODIUM CHLORIDE 0.9% 500 ML 500 ML IRRIGATION ONE (11:25)
[2024-07-04] MEDS: ceFAZolin 2 GM in DEXTROSE 5% IN WATER 50 ML IVPB PRN (11:25)
[2024-07-04] MEDS: BUPIVACAINE (PF) 0.5% 30 ML VIAL SQ ONE (11:46)
[2024-07-04] MEDS: LIDOCAINE 1% INJ 10MG/ML (20 ML MDV) SQ ONE (11:46)
[2024-07-04 13:37] VITALS: BP 118/62; PULSE 63
--- NOTE | 2024-07-04 14:03 | P.OP ---
Date of Procedure: 07/04/24 Description of Procedure: Preoperative diagnosis: End-stage renal disease, dialysis Postoperative diagnosis: Same Procedure: Left upper extremity loop forearm graft Surgeon: Mia Ryan D.O. Anesthesia: Regional block with sedation EBL: 15 mL IV fluids: See operative records Urine output: Not measured Drains: None Complications: None immediately apparent Condition: Stable to PACU Operative indication and findings: Procedure in detail: The patient was taken to the operative suite and placed in supine position. The upper extremity is prepped and draped in usual sterile fashion. A preprocedure timeout was performed, all parties were in agreement. A transverse incision was made just distal to the antecubital fossa and carried down to the level of the brachial artery. It was dissected free circumferentially and proximal and distal Vesseloops were placed. Attention was then turned towards the venous outflow. T. There is the relief worker between superficial and deep venous system therefore the area was dissected to encompass each of these. Therefore it was dissected free and encircled proximally and distally. The 4 x 7 propatent graft was then tunneled through a counter incision in the forearm and a subcutaneous tissues. The patient was then heparinized. Flow was occluded through the artery. An arteriotomy was performed and anastomosis to the graft was performed with 6-0 Prolene. The graft was then flushed and the anastomosis was tied. Flow was resumed through the artery. Attention was then turned towards the venous anastomosis. Flow was occluded through the vein and a venotomy was performed. Anastomosis created with 6-0 Prolene. Prior to completion of the anastomosis the graft was flushed as well as the veins themselves. Fow was reinstituted. There remained a palpable pulse proximal and distal to the arterial anastomosis as well as a palpable pulse in the wrist. Thrombin Gelfoam was used for hemostasis. The incision sites were copiously irrigated the subcutaneous tissues were approximately with 3-0 Vicryl in interrupted fashion and the skin was reappr oximated with running 4-0 Monocryl. Skin glue was placed. The patient was allowed awaken from anesthesia and transferred to PACU in stable condition having tolerated the procedure well. Plan - Discharge Summary Discharge Rx Participant: Yes New Discharge Prescriptions: No Action Metoprolol Tartrate 12.5 mg PO BID Losartan [Cozaar] 50 mg PO QAM Vit B Comp No.3/Folic/C/Biotin [Denisse-Myah Rx Tablet] 1 each PO QAM Cholecalciferol (Vitamin D3) [Vitamin D3 (50 Mcg = 2000 Iu)] 50 mcg PO QAM ALPRAZolam [Xanax] 0.25 mg PO HS PRN PRN Reason: Anxiety amLODIPine 10 mg PO QAM Sevelamer Carbonate 800 mg PO TID-W/MEALS Rosuvastatin [Crestor] 5 mg PO HS Discharge Medication List ALPRAZolam [Xanax] 0.25 mg PO HS PRN 05/20/24 [History] Cholecalciferol (Vitamin D3) [Vitamin D3 (50 Mcg = 2000 Iu)] 50 mcg PO QAM 05/20/24 [History] Losartan [Cozaar] 50 mg PO QAM 05/20/24 [History] Metoprolol Tartrate 12.5 mg PO BID 05/20/24 [History] Rosuvastatin [Crestor] 5 mg PO HS 05/20/24 [History] Sevelamer Carbonate 800 mg PO TID-W/MEALS 05/20/24 [History] Vit B Comp No.3/Folic/C/Biotin [Denisse-Myah Rx Tablet] 1 each PO QAM 05/20/24 [History] amLODIPine 10 mg PO QAM 05/20/24 [History] Follow up Appointment(s)/Referral(s): Mia Duval DO [STAFF PHYSICIAN] - 2 Weeks (call office to make appt ) Patient Instructions/Handouts: *Surgery [facility] - (Anesthesia) Discharge Instructions Outpatient Surgery, Arteriovenous Graft Creation for Hemodialysis (DC) Activity/Diet/Wound Care/Special Instructions: keep sling in place until block wears off keep magdy wrap on for 2 days elevate for swelling notify Dr for any problems or signs and sx infection Discharge Disposition: HOME SELF-CARE Care Plan Goals (MU): left loop graft
--- NOTE | 2024-07-05 11:20 | P.ANPRN ---
Procedure Note - Anesthesia - Nerve Block Performed Left Supraclavicular Single Time Out Performed: Yes Date of Procedure: 07/04/24 Procedure Start Time: 10:53 Procedure Stop Time: 10:59 Location of Patient: PreOp Indication: Acute Post-Operative Pain, Requested by Surgeon Preparation: Sterile Prep Position: Supine Needle Types: Pajunk Needle Gauge: 21 Ultrasound used to visualize needle placement: Yes Ultrasound used to observe medication spread: Yes Blood Aspirated: No Pain Paresthesia on Injection Noted: No Resistance on Injection: Normal Image Stored and Saved: Yes Events: Uneventful and Well Tolerated (Ropivacaine 0.5% 20 cc plus dexamethasone 4 mg)
== END 2024-07-04 13:55 | disposition home or self-care (01) ==
LOC: OR 09:36
PROVIDERS: ATTEND Surgery
DX: T82.858A Stenosis of other vascular prosthetic devices, implants and grafts, initial encounter (principal); I12.0 Hypertensive chronic kidney disease with stage 5 chronic kidney disease or end stage renal disease; N18.6 End stage renal disease; Z99.2 Dependence on renal dialysis; F17.200 Nicotine dependence, unspecified, uncomplicated; Z79.899 Other long term (current) drug therapy; G89.18 Other acute postprocedural pain
CPT/HCPCS: 36830; 64415; 84132; L8670; J2250; J1644; J1100; J0690; J2405; J2003; J3010; J2795; J2704; J2371; J0665; J1596